=== PATIENT | male | born 1975 | race Caucasian/White ===

== ENCOUNTER → 2016-04-12 | Outpatient (CLI) | payer MEDICAID ==
[~2016-04-12] MED LIST: CEPHALEXIN500 MG PO; HYDROCODONE-APA1 TA1 PO; NOMEDS *; PREDNISONE 10MG10 MG PO; TRAMADOL 50MG T50 MG PO
--- NOTE | 2016-04-14 09:36 | RADIOLOGY REPORT PS360 ---
MRI-LOW EXT ANY JOINT W/O-LT HISTORY: Medial sided left knee pain and swelling with history of meniscal tear and ACL tear. OLD TEAR OF MEDIAL MENISCUS OF LEFT KNEE ORDERING PHYSICIAN: Silverio Kumar MD PATIENT AGE: 41 years COMPARISON: Radiograph of to 2217 TECHNIQUE: Standard multiplanar multiecho sequences are performed without contrast. FINDINGS: The fibers of the ACL are sparse. There are however a few intact fibers present. This could be related to old injury. The PCL and collateral ligaments are intact. Patellar tendon and quadriceps tendon appears intact. There is a longitudinal tear the posterior horn of the medial meniscus with some minimal irregularity of the juxtaposing services of the tear but no significant displacement. The lateral meniscus has an unremarkable appearance. There is a small knee joint effusion. Patellar cartilage is well-preserved. No acute fracture or dislocation apparent there is some increased T2 signal involving the medial aspect of the medial femoral condyle and the medial tibial plateau. Suprapatellar effusion is present. There is also small Romero's cyst measuring 5. 3.5 x 1 cm. There is some loculation of the cyst in the popliteal fossa IMPRESSION: 1. Longitudinal tear involves posterior horn of the medial meniscus with some minimal irregularity of the surface of the tear 2. Small knee joint effusion with Romero's cyst. 3. Slight increased T2 signal involves the medial femoral condyle medial tibial plateau and could be related to bone bruise or overlying bone marrow edema from inflammation. 4. Sparse fibers of the ACL which may be due to old/minor injury
== END ==
LOC: RAD 07:48
DX: M23.204 Derangement of unspecified medial meniscus due to old tear or injury, left knee (principal)

== ENCOUNTER → 2016-05-17 | Outpatient (CLI) | payer MEDICAID ==
--- NOTE | 2016-05-20 07:55 | RADIOLOGY REPORT PS360 ---
PROCEDURE: 2-D M-mode and color Doppler study INDICATIONS FOR THE TEST: Chest pain COPD Heart Murmur Tobacco Smoking PalpitationsX Fatigue Syncope Edema Hypertension Diabetes Mellitus Rheumatic Fever SOB FUENTES Obesity Hyperlipidemia Family History HD Additional History ASD,BUBBLE STUDY DONE PATIENT INFORMATION HEIGHT: 69 WEIGHT:131 GENDER: Male B/P:104/73 2-D/M-MODE INTERPRETATION: 2-D MEASUREMENTS OBSERVED VALUES IN CMS Right Ventricular Dimension (RVDd) .9 Interventricular Septum (Thickness)(IVsd) .9 Left Ventricular Internal Dimensions(LVIDd) 5.7 Left Ventricular Posterior Wall (Thickness)(LVPWd) .9 Aortic Root 2.9 Aortic Cusp Separation 1.6 Left Atrial Dimensions (LAD) 2.8 2D 1. Left atrium is normal size, left ventricle is normal size, there is no concentric left ventricular hypertrophy, visually estimated ejection fraction 55% with no obvious regional wall motion abnormality. 2. The right atrium is mildly enlarged, right ventricle is mildly enlarged with normal contractility. 3. The aortic valve is minimally thickened and calcified consistent with mild aortic sclerosis. 4. Mitral and tricuspid valve is structurally normal 5. Pulmonic valve is not well visualized. 6. No significant pericardial effusion noted. 7. The intra-atrial septum is not well visualized. DOPPLER INTERROGATION: 1. The Doppler interrogation of the aortic mitral and tricuspid valve reveals presence of mild mitral and tricuspid regurgitation, tricuspid regurgitation jet velocity is insufficient for calculation of the right ventricular systolic pressure. 2. Agitated saline contrast study identifies right to left shunt, transesophageal echocardiogram is recommended to assess the intra-atrial septum. CONCLUSION: 1. Normal left ventricular size, preserved left ventricular systolic function, visually estimated ejection fraction 55% with no obvious regional wall motion abnormality. 2. Mildly enlarged right atrium and right ventricle contractility of the right ventricle is normal. 3. Agitated saline contrast study identifies right to left shunt, a transesophageal echocardiogram is recommended to assess the intra-atrial septum. 4. No significant pericardial effusion noted.
== END ==
LOC: RT 12:09
DX: Q21.1 Atrial septal defect (principal); R94.31 Abnormal electrocardiogram [ECG] [EKG]; I49.1 Atrial premature depolarization; I49.3 Ventricular premature depolarization; Z01.818 Encounter for other preprocedural examination

== ENCOUNTER 2016-12-08 22:36 | Observation (INO) | payer MEDICAID ==
[~2016-12-08] VITALS: Ht 172.7 cm; Wt 59.5 kg
[2016-12-08 22:38] VITALS: BP 130/83
[2016-12-08] MEDS ORDERED: NOMEDS XX (22:47)
[2016-12-08 22:51] LABS: HEMOGLOBIN 14.6 g/dL (14.1-18.0); LYMPH # 3.1 K/mm3 (0.7-4.5); LYMPH % 42.6 % (10-50)
--- NOTE | 2016-12-08 23:03 | Emergency Room Report ---
History of Present Illness Time Seen by [id number] Presenting Problem in Triage Pt arrived:Walked Presenting Problem:CHEST PAIN INTERMITTANTLY FOR A WEEK, NAUSEA. SPOKE WITH DR. 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 N Clinical Suspician of Infection? N Mental Status: 1 - Regular (Normal Baseline) Sepsis Risk:Low Sepsis Risk Have you (or family members/close friends) recently traveled outside the [place]? N If Yes, where/when: Have you had exposure to infectious disease within the past month? N TB? Other? Specify: Source patient, RN notes reviewed, family, old records Exam Limitations no limitations Comment over the last week has had chest pain and elevated bp Cardiac Chest Pain Chest pain indicative of cardiac Yes Timing/Duration 24 hours, intermittent Severity/Quality moderate, pressure Location central Chest Pain Radiation no radiation Activities at Onset light activity Nitro Today/Relief no nitro taken today Aspirin Treatment Today 325 mg x 1, provided by ED Beta betsy treatment today no beta betsy taken Timing/Duration this evening Severity moderate ALLERGIES Coded Allergies: No Known Allergies (05/27/16) Home Medications Active Scripts CEPHALEXIN MONOHYDRATE (Cephalexin 500MG Capsule) 500 MG PO QID #20 CAPSULE Prov: 09/27/14 HYDROCODONE 5MG/APAP 325MG (Hydrocodon-Acetaminophen 5-325) 1 TAB PO Q6HP PRN finger injury #15 TAB Prov: 09/27/14 Prednisone (Prednisone 10MG) 10 MG PO BID 7 Days Prov: 07/17/11 Reported Medications No Home Medications (NO HOME MEDICATIONS) 1 X * ONCE No Home Medications (NO HOME MEDICATIONS) 1 EACH XX ONCE History Medical History General Angina: No [place]: No Hypertension? No Hyperlipidemia? No CHF? No COPD? No Asthma? No CVA? No Seizures? No Diabetes? No GB Disease: No MRSA? No TB? No Cancer? No Immunization Hx DT/Tetanus 09/27/14 Surgical Hx Previous Surgery?N Social History Smoking Hx Smoker: Current Every Day Smoker Tobacco: Yes Type Cigarettes Packs/day < 1 Pack Alcohol Alcohol: Yes Drugs none Review of Systems All Other Systems Reviewed and Negative Constitutional denies fever Eyes denies drainage ENT denies: ear discharge, epistaxis, throat pain. Respiratory denies cough, denies shortness of breath, denies wheezing Cardiovascular see HPI, chest pain, palpitations, denies syncope Gastrointestinal denies abdominal pain, denies diarrhea, denies vomiting Genitourinary denies: dysuria, frequency, hesitancy, hematuria. Musculoskeletal denies back pain, denies joint pain, denies joint swelling, denies neck pain Skin denies rash Psychiatric/Neurological denies headache, denies seizure Physical Exam Vital Signs Vital Signs Date Time Temp Pulse Resp B/P Pulse O2 O2 Flow FiO2 Ox Delivery Rate 12/08 2237 98.1 58 18 130/83 97 - WBC >12,000 or <4,000 or 10% bands? 2 or more SIRS Criteria Met? B/P:130/83 MAP:98 Creatinine >2.0? UA output<0.5ml/kg/hr for 2 hrs? Platelet count >100,000? Lactate >2.0mmol/1? INR >1.2 or PTT > than 60 sec? Evidence of Organ Dysfunction? Provider documented clinical suspician of infection? N Sepsis Criteria Count: 0 Sepsis Risk: Low Sepsis Risk General Appearance no apparent distress Eye Exam - bilateral eye PERRL, bilateral eye EOMI Ear, Nose, Throat normal ENT inspection Neck supple Respiratory Status No: respiratory distress. Lung Sounds bilateral: lungs clear. 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 No Results/Orders Laboratory Tests 12/08/162243: Triglycerides 171, Cholesterol 166, LDL Cholesterol 90.8, VLDL Cholesterol 34.2, HDL Cholesterol 41.0 12/08/162243: Sodium 140, Potassium 4.0, Chloride 105, Carbon Dioxide 31, BUN 14, Creatinine 0.9, Estimated Creat Clear 92, Estimated GFR (MDRD) 94, Glucose 102, Calcium 9.0 , Total Bilirubin 0.2, AST 14 L, ALT 21, Alkaline Phosphatase 93, Creatine Kinase 116, CK-MB (CK-2) Rel Index 0.9, CK and CKMB Interp 1.1, Troponin I < 0.02, Total Protein 7.6, Albumin 4.1, Globulin 3.5 H, Albumin/Globulin Ratio 1.2, WBC 7.2, RBC 4.93, Hgb 14.6, Hct 44.8, MCV 90.9, RDW 12.6, Plt Count 276, MPV 7.5, Gran % 45.5, Gran # 3.3, Lymphocytes % 42.6, Monocytes % 3.5, Eosinophils % 7.5, Basophils % 0.9, Lymphocytes # 3.1, Monocytes # 0.3, Eosinophils # 0.5 H, Basophils # 0.1, PUBS MCHC 32.5, MCH 29.6 Current Medication Orders Sig/Lizzette Start time Last Medication Dose Route Stop Time Status Admin Sodium Chloride 10 ML PRN PRN 12/08 2299 AC IV 12/09 2248 Orders Procedure Date/time Status Decision to admit 12/08 2328 Active LIPID PROFILE 12/08 2301 Complete ELECTROCARDIOGRAM REQUEST 12/08 2248 Active CHEST(2 VIEWS-NOT PORTABLE) 12/08 2248 Active IV SALINE LOCK 12/08 2248 Active CBC WITH AUTO DIFF 12/08 2248 Complete CARDIAC ENZYMES 12/08 2248 Complete CHEM 12 PROFILE 12/08 2248 Complete 12 LEAD EKG-YAMILKA (INITIAL) 12/08 UNK Active 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 ST/Twave chgs XRAY/CT/US XRAY/CT/US XRAY chest XR interpretation by reviewed by me Xray Results normal/NAD HERLINDA Score for N-Stemi/Angina HERLINDA N-STEMI SCORE HERLINDA N-STEMI SCORE Response Value Age of patient Less than 65 yrs 0 Number of risk factors for CAD Presence of 3 or more 1 Prior coronary artery stenosis (seen in angiography) Less than 50% 0 ST-Segment deviation on ECG (>1 min) Absent 0 Prior aspirin intake No ASA in the last 7 days 0 Severe anginal chest pain 2 or more episodes/24hr 1 Elevated cardiac markers(CK-MB or troponin) Absent 0 Total 2 Risk Stratification 0-2= Low Risk Patients Departure Departure Time of Disposition 2306 Disposition Still a Patient Clinical Impression Primary Impression: Chest pain Qualifiers: Chest pain type: precordial pain Qualified Code: R07.2 - Precordial pain Condition STABLE Referrals Ken Hodge MD (Family) discussed with dr tilley and dr narvaez ED Critical Care Critical Care No at [id number]
[2016-12-08 23:16] LABS: BUN 14 mg/dL (7-18)
[2016-12-08 23:19] LABS: GFR (ESTIMATED) 94 ML/MIN (>60)
[2016-12-09] VITALS (11 sets, daily range): BP systolic 103–146; BP diastolic 56–72
[2016-12-09 08:08] LABS: BUN 11 mg/dL (7-18)
[2016-12-09 08:13] LABS: GFR (ESTIMATED) 108 ML/MIN (>60)
--- NOTE | 2016-12-09 08:26 | RADIOLOGY REPORT PS360 ---
CHEST(2 VIEWS-NOT PORTABLE) HISTORY: Chest pain, smoker CHEST PAIN ORDERING PHYSICIAN: Olivier Flores MD PATIENT AGE: 41 years COMPARISON: 05/08/2016 FINDINGS: The cardiomediastinal silhouette and pulmonary vascularity are within normal limits. The lungs are clear without infiltrates, suspicious nodules, or pleural effusions. No acute bony abnormalities. IMPRESSION: Negative chest, no acute finding
--- NOTE | 2016-12-09 08:35 | PHARMACY CLINIC NOTE ---
Patient Demographics Patient Demographics Admission date: 12/09/16 Date: 12/09/16 Time: 0834 Allergies Coded Allergies: No Known Allergies (05/27/16) HEIGHT- FT: 5 IN: 8.00 K.506 VTE General Information Labs: Laboratory Tests 12/08 2244 Hematology Hgb (14.1 - 18.0 g/dL) 14.6 Hct (42.0 - 52.0 %) 44.8 Plt Count (142 - 424 K/mm3) 276 Disclaimer The following section includes nursing documentation that has been pulled in for pharmacy review. Patient's VTE score: 1 Patient's VTE Risk: VERY LOW RISK Clinical trial participant? No VTE prophylaxis NQF [id number] VTE prophylaxis ordered? Yes Type of prophylaxis/treatment: DARIEL at 0834
--- NOTE | 2016-12-09 08:58 | HISTORY AND PHYSICAL REPORT ---
See Addendum History and Physical (FCA) Date of admission: 12/09/16 Chief complaint: slow heart rate History: History of Present Illness: Mr Figueroa is a 41 year old male with a history of arrhythmias requiring ablations x4 and atrial septal defect who presented to [facility] ER for evaluation with a low HR in the 50's. He states he has not felt well for the previous 3-4 days with nausea and some CP. He describes the CP as LACP and like a cramp which is better when leaning over. He denies SOB, vomiting, fever, and diarrhea. He does smoke about [address] Sherwood who directed him to the ER. In the ER EKG showed a Sinus Bradycardia with non-spec. ST/Twave chgs. He was admitted for further evaluation and treatment. Past Medical History: Medical History: CAD? No Angina: No CT: No Hypertension? No Hyperlipidemia? No CHF? No DVT? No PE? No COPD? No Asthma? No Anemia? No GERD? No GI Bleed? No Thyroid Problems? No Hypothyroidism? No CVA? No Seizures? No Diabetes? No Renal Insuffiency? No BPH? No GB Disease: No Migraines? No MRSA? No TB? No Anxiety? No Depression? No Cancer? No More? No Additional hx: Cardiac arrhythmias requiring ablation x4 Atrial septal defect Tobacco abuse Surgical history: Previous Surgery?Y 4 CARDIAC ABLATIONS Medications: Reported Medications No Known Home Medications Allergies: Coded Allergies: No Known Allergies (05/27/16) Family History: Family history: Postive for: CAD, CAD under 40 yrs of age. Negative for: DM, stroke. Social History: Smoking Hx Tobacco: Yes Smoker: Current Every Day Smoker Type: Cigarettes Packs/day: < 1 Pack Are you exposed to second hand Yes Alcohol: Alcohol: No Hx of Drug Use: Drug Use? No Patien't marital status is: Review of Systems: Constitutional Positive for: weak. ENT No: ear ache, nasal congestion, sore throat. Cardiovascular Positive for: chest pain, palpitations. No: edema. Respiratory No: shortness of air, non-productive, pneumonia, productive cough (sputum), wheezing. GI No: GERD, abdominal pain, constipation, diarrhea, hematemeis, hematochezia, melena, nausea, vomitting. (male) No: hematuria. Neurological Positive for: dizziness, light headed. No: confusion, headache, seizure, syncope. Musculoskeletal No: extremity pain, extremity swelling, joint pain, joint swelling. Psychiatric No: confused, depression. Physical Exam: Vital signs: 1ST Vital Signs Result Date Time Pulse Ox 97 12/08 2237 B/P 130/83 12/08 2237 Temp 98.1 12/08 2237 Pulse 58 12/08 2237 Resp 18 12/08 2237 O2 Delivery ROOM AIR 12/09 001 Exam: General appearance: alert, active, awake, no acute distress Eyes: anicteric, pupils reactive to light ENT: mucous membranes moist Neck: no carotid bruit, full range of motion, lymphadenopathy (absent), thyroid (normal) Cardiovascular: regular rate & rhythm (bradycardia), no ectopy heard with this exam Respiratory: clear to auscultation (bilat anterior and posterior) ABD: soft, no tenderness, no guarding, bowel sounds present Extremities: moves all, no peripheral edema, no calf tenderness Neuro: alert, oriented, speech clear Lab data: Labs: Laboratory Tests 12/09/16 0735: Sodium 140, Potassium 4.2, Chloride 108 H, Carbon Dioxide 28, BUN 11, Creatinine 0.8, Estimated Creat Clear 104, Estimated GFR (MDRD) 108, Glucose 92, Calcium 8.6, Creatine Kinase 251, CK-MB (CK-2) Rel Index 0.8, CK and CKMB Interp 2.1, Troponin I < 0.02 12/09/16 0310: Creatine Kinase 88, CK-MB (CK-2) Rel Index 0.8, CK and CKMB Interp 0.7, Troponin I < 0.02 12/08/16 2244: Triglycerides 171, Cholesterol 166, LDL Cholesterol 90.8, VLDL Cholesterol 34.2, HDL Cholesterol 41.0 12/08/16 2244: Sodium 140, Potassium 4.0, Chloride 105, Carbon Dioxide 31, BUN 14, Creatinine 0.9, Estimated Creat Clear 92, Estimated GFR (MDRD) 94, Glucose 102, Calcium 9.0 , Total Bilirubin 0.2, AST 14 L, ALT 21, Alkaline Phosphatase 93, Creatine Kinase 116, CK-MB (CK-2) Rel Index 0.9, CK and CKMB Interp 1.1, Troponin I < 0.02, Total Protein 7.6, Albumin 4.1, Globulin 3.5 H, Albumin/Globulin Ratio 1.2, WBC 7.2, RBC 4.93, Hgb 14.6, Hct 44.8, MCV 90.9, RDW 12.6, Plt Count 276, MPV 7.5, Gran % 45.5, Gran # 3.3, Lymphocytes % 42.6, Monocytes % 3.5, Eosinophils % 7.5, Basophils % 0.9, Lymphocytes # 3.1, Monocytes # 0.3, Eosinophils # 0.5 H, Basophils # 0.1, PUBS MCHC 32.5, MCH 29.6 Radiology results: Results: 12/08/16 IMPRESSION: Negative chest, no acute finding Diagnosis(es): 1. Chest pain 2. Cardiac dysrhythmia, unspecified Plan: Dr. Sherwood was consulted in the ER and he will have a cardiac cath at 0858 at 1240
--- NOTE | 2016-12-09 10:07 | RADIOLOGY REPORT PS360 ---
CARDIAC CATHETERIZATION DATE OF CATHETERIZATION:12/09/2016 9:08 AM PROCEDURES: 1. Right heart catheterization 2. Left heart catheterization 3. Left ventriculogram 4. Selective coronary angiogram INDICATION FOR TEST: 1. Unstable angina 2. Left to right inter atrial shunt 3. Symptomatically bradycardia Informed consent was obtained prior to the procedure. COMPLICATIONS: None ESTIMATED BLOOD LOSS: Less than 10 ml. TECHNIQUE: One percent lidocaine was used to anesthetize the right anterior aspect of the right neck. The right internal jugular vein was accessed via the Seldinger technique and a 7 Occitan sheath was placed in the internal jugular vein. Following this one percent lidocaine was used to anesthetize the right anterior aspect of the right wrist and the right radial artery was accessed via the Seldinger technique. A 6 Occitan hydrophilic sheath was placed in the right radial artery and an arterial cocktail using verapamil nitroglycerin and heparin was administered intra-arterially. A trap catheter was used to perform left heart catheterization left ventriculogram and selective coronary angiography. At the end of the diagnostic angiogram a Warren-Johnny catheter was floated into the right atrium and right ventricle pulmonary artery and wedged position under both hemodynamic and fluoroscopic guidance. The catheter was then pulled into the superior vena cava were saturation was obtained and then placed down into the inferior vena cava with repeat saturation. At the end of the procedure the radial artery sheath was removed good hemostasis was achieved using TR banding in patient transferred the postop holding area in stable condition ANGIOGRAPHIC RESULTS: 1. The left main artery normal 2. The left anterior descending artery has normal 3. The circumflex artery is non dominant and has normal 4. The right coronary artery normal 5. The SINGH ventriculogram reveals normal 65% The left ventricular end-diastolic pressure 10 mmHg HEMODYNAMICS: Right atrial pressure is 5 mm Hg. Pulmonary arterial pressure is 15/8 mm Hg. Pulmonary artery occlusion pressure is 5 mm Hg. SATURATIONS: RA is 90 %. PA is 90 %. Superior vena cava 89% Inferior vena cava 92% IMPRESSION: 1. Normal coronary arteries 2. Normal ejection fraction 3. Normal left ventricular end-diastolic pressure 4. No evidence of left to right shunting 5. Normal right heart cath numbers with the exception of a high saturation in the venous return at both the superior vena cava and inferior vena cava level PLAN: 1. Patient will be evaluated for symptomatic bradycardia by placement of an implantable loop recorder
[2016-12-09 10:19] LABS: ARTERIAL O2 SAT CATH LAB 90 % (90-100); VENOUS O2 SAT CATH LAB 90 % (75-80)
[2016-12-09 10:37] LABS: HEMOGLOBIN 13.5 g/dL (14.1-18.0); LYMPH # 2.3 K/mm3 (0.7-4.5)
--- NOTE | 2016-12-09 16:13 | DISCHARGE SUMMARY STANDARD ---
Discharge Summary (FCA2) Date of admission: 12/09/16 Date of discharge: 12/09/16 Problem List: 1. Chest pain 2. Cardiac dysrhythmia, unspecified History of present illness: History of Present Illness: Mr Figueroa is a 41 year old male with a history of arrhythmias requiring ablations x4 and atrial septal defect who presented to [facility] ER for evaluation with a low HR in the 50's. He stated he had not felt well for the previous 3-4 days with nausea and some CP. He described the CP as LACP which felt like a cramp which was better when leaning over. He denied SOB, vomiting, fever, and diarrhea. He has continued to smoke about [address] Sherwood who directed him to the ER. In the ER EKG showed a Sinus Bradycardia with non-spec. ST/Twave chgs. He was admitted for further evaluation and treatment. Exam on admission: 1ST Vital Signs Result Date Time Pulse Ox 97 12/08 2237 B/P 130/83 12/08 2237 Temp 98.1 12/08 2237 Pulse 58 12/08 2237 Resp 18 12/08 2237 O2 Delivery ROOM AIR 12/09 001 Exam: General appearance: alert, active, awake, no acute distress Eyes: anicteric, pupils reactive to light ENT: mucous membranes moist Neck: no carotid bruit, full range of motion, lymphadenopathy (absent), thyroid (normal) Cardiovascular: regular rate & rhythm (bradycardia), no ectopy heard with this exam Respiratory: clear to auscultation (bilat anterior and posterior) ABD: soft, no tenderness, no guarding, bowel sounds present Extremities: moves all, no peripheral edema, no calf tenderness Neuro: alert, oriented, speech clear 12/09/16 0735: Sodium 140, Potassium 4.2, Chloride 108 H, Carbon Dioxide 28, BUN 11, Creatinine 0.8, Estimated Creat Clear 104, Estimated GFR (MDRD) 108, Glucose 92, Calcium 8.6, Creatine Kinase 251, CK-MB (CK-2) Rel Index 0.8, CK and CKMB Interp 2.1, Troponin I < 0.02 12/09/16 0310: Creatine Kinase 88, CK-MB (CK-2) Rel Index 0.8, CK and CKMB Interp 0.7, Troponin I < 0.02 12/08/16 2244: Triglycerides 171, Cholesterol 166, LDL Cholesterol 90.8, VLDL Cholesterol 34.2, HDL Cholesterol 41.0 12/08/16 2244: Sodium 140, Potassium 4.0, Chloride 105, Carbon Dioxide 31, BUN 14, Creatinine 0.9, Estimated Creat Clear 92, Estimated GFR (MDRD) 94, Glucose 102, Calcium 9.0 , Total Bilirubin 0.2, AST 14 L, ALT 21, Alkaline Phosphatase 93, Creatine Kinase 116, CK-MB (CK-2) Rel Index 0.9, CK and CKMB Interp 1.1, Troponin I < 0.02, Total Protein 7.6, Albumin 4.1, Globulin 3.5 H, Albumin/Globulin Ratio 1.2, WBC 7.2, RBC 4.93, Hgb 14.6, Hct 44.8, MCV 90.9, RDW 12.6, Plt Count 276, MPV 7.5, Gran % 45.5, Gran # 3.3, Lymphocytes % 42.6, Monocytes % 3.5, Eosinophils % 7.5, Basophils % 0.9, Lymphocytes # 3.1, Monocytes # 0.3, Eosinophils # 0.5 H, Basophils # 0.1, PUBS MCHC 32.5, MCH 29.6 Hospital Course: Am of 12/09/16 patient reported no CP or SOB. He had a cardiac cath with the following impression: 1. Normal coronary arteries 2. Normal ejection fraction 3. Normal left ventricular end-diastolic pressure 4. No evidence of left to right shunting 5. Normal right heart cath numbers with the exception of a high saturation in the venous return at both the superior vena cava and inferior vena cava level with plan for evaluation for symptomatic bradycardia by placement of an implantable loop recorder. Patient continued to be pain free in the PM of same day and was discharged to home. Laboratory data this visit: 12/09/16 0735: Sodium 140, Potassium 4.2, Chloride 108 H, Carbon Dioxide 28, BUN 11, Creatinine 0.8, Estimated Creat Clear 104, Estimated GFR (MDRD) 108, Glucose 92, Calcium 8.6, Creatine Kinase 251, CK-MB (CK-2) Rel Index 0.8, CK and CKMB Interp 2.1, Troponin I < 0.02 12/09/16 0310: Creatine Kinase 88, CK-MB (CK-2) Rel Index 0.8, CK and CKMB Interp 0.7, Troponin I < 0.02 12/08/16 2244: Triglycerides 171, Cholesterol 166, LDL Cholesterol 90.8, VLDL Cholesterol 34.2, HDL Cholesterol 41.0 12/08/16 2244: Sodium 140, Potassium 4.0, Chloride 105, Carbon Dioxide 31, BUN 14, Creatinine 0.9, Estimated Creat Clear 92, Estimated GFR (MDRD) 94, Glucose 102, Calcium 9.0 , Total Bilirubin 0.2, AST 14 L, ALT 21, Alkaline Phosphatase 93, Creatine Kinase 116, CK-MB (CK-2) Rel Index 0.9, CK and CKMB Interp 1.1, Troponin I < 0.02, Total Protein 7.6, Albumin 4.1, Globulin 3.5 H, Albumin/Globulin Ratio 1.2, WBC 7.2, RBC 4.93, Hgb 14.6, Hct 44.8, MCV 90.9, RDW 12.6, Plt Count 276, MPV 7.5, Gran % 45.5, Gran # 3.3, Lymphocytes % 42.6, Monocytes % 3.5, Eosinophils % 7.5, Basophils % 0.9, Lymphocytes # 3.1, Monocytes # 0.3, Eosinophils # 0.5 H, Basophils # 0.1, PUBS MCHC 32.5, MCH 29.6 Imagin12/08/16 IMPRESSION: Negative chest, no acute finding Disposition: Patient was discharged to home in stable and satisfactory condition. He was on no medications. Diet was to be as tolerated and activity limited. To follow-up with Dr. Hodge in [address] Sherwood as directed. Pt was counselled about smoking cessation and he will consider. at 1613
--- NOTE | 2016-12-13 09:42 | Operative Note ---
Procedure: Date of procedure: 12/12/16 Time of procedure: 929 Indication: AF ABLATION Technique: Technique: 1 percent lidocaine with epinephrine used to anesthetize the size. The LEFT anterior aspect of the chest along the LEFT sternal border. Using the preformed scalpel, an incision was made in the loop recorder was placed subcutaneously without difficulty. Following the deployment of the loop recorder interrogation of the device was performed to ensure appropriate voltage was being detected. Once this was verified. Steri-Strips were placed over the incision and the patient was prepped to discharge home. Patient tolerated procedure well with minimal discomfort. Impression: Successful deployment of loop recorder Serial number: REVEAL LINQ [id number]
--- OUTSIDE RECORDS SUMMARY | 2016-12-13 23:41 | External Medical Summary Rpt | CCD ---
Author Author , YOSHI Organization YOSHI Address Unknown Phone [email or web address] Care Team Providers Care Supervisor Coin Machine Name Role Phone ATKINS TRA, ATKINS Unavailable Unavailable TRA ATKINS TRA, ATKINS Unavailable Unavailable TRA BESSON, BESSON Unavailable Unavailable BESSON ROMINA, BESSON Unavailable Unavailable ROMINA ZHANG, ZHANG Unavailable Unavailable BELLE, BELLE Unavailable Unavailable BELLE, BELLE Unavailable Unavailable BURGER, BURGER Unavailable Unavailable FROY, FROY Unavailable Unavailable [facility], Unavailable Unavailable [facility] Unavailable Unavailable [facility] Unavailable Unavailable PHYSICIANS, [facility] ILIANA RENEE, ILIANA Unavailable Unavailable VÍCTOR FAY LALI, Unavailable Unavailable FAY LALI PEREYRA LLUVIA, PEREYRA LLUVIA Unavailable Unavailable CELI ANURADHA, CELI ANURADHA Unavailable [facility] GRAVES LES, GRAVES Unavailable Unavailable LES GRA[facility]ES LES, GRAVES Unavailable Unavailable LES [facility] Unavailable Unavailable INC, [facility] Unavailable [facility]available [facility]PITAL P, [facility] HERFEL DONOVAN, HERFEL Unavailable Unavailable DONOVAN [facility], Unavailable Unavailable [facility] HURST LLUVIA, HURST LLUVIA Unavailable Unavailable HARPER MAR, HARPER Unavailable Unavailable MAR [facility]available [facility], [facility] RONNELL ANAI, RONNELL Unavailable Unavailable [facility] Un[facility] SMITH ROMINA, SMITH ROMINA Unavailable Unavailable VIRGEN JR, VIRGEN JR Unavailable Unavailable MAGO MAR, MAGO MAR Unavailable Unavailable PARRISH, PARRISH Unavailable Unavailable ROBERT R H, Unavailable Unavailable ROBERT R H PETTEY, PETTEY Unavailable Unavailable RACHOVITSKY NATALIA, Unavailable Unavailable RACHOVITSKY NATALIA ISAURA CARLOS EDUARDO, Unavailable Unavailable ISAURA CARLOS EDUARDO SCALF, SCALF Unavailable Unavailable SCALF, SCALF Unavailable Unavailable SCALF LEI, SCALF LEI Unavailable Unavailable SCALF LEI, SCALF LEI Unavailable Unavailable [facility], Unavailable Unavailable [facility] Unavailable Unavailable CATERING AND EVENTS MANAGER ST, [facility] EVENTS MANA[facility] NO Unavailable Unavailable PHYSICIANS, [facility], Unavailable Unavailable RED MORENO Unavailable Unavailable [facility], Unavailable Unavailable [facility] Unavailable Unavailable [facility], [facility] Unavailable Unavailable [facility], [facility] AARON BAR, AARON BAR Unavailable Unavailable Purpose Continuity of Care Document - 05-09-2012 through 2016 Problems Code Diagnosis DOS Provider Status Q211 ATRIAL 09-19-2016 [place] [facility]AL OF [facility] PHY [id number] BASAL CELL 05-28-2016 SCALF CARCINOMA SKIN OF OTHER PART OF TRUNK M2242 CHONDROMALA 05-27-2016 [facility] CONRADO PHYSICIANS PATELLAE GROUP LEFT KNEE [id number] DERANG POST 05-27-2016 [facility] HORN MED PHYSICIANS MENISC OLD GROUP TEAR/INJ LT KNEE [id number] UNS TEAR 05-27-2016 [facility] UNS ANESTH OF MENISCUS [facility] BLUE CURR INJ LT KNEE INIT ENC [id number] SPRAIN ANT 05-27-2016 [facility] CRUCIATE PHYSICIANS LIGAMENT LT GROUP KNEE INITIAL ENC I491 ATRIAL 05-17-2016 [facility] DEPOLARIZAT INC ION I493 VENTRICULAR 05-17-2016 [facility] DEPOLARIZAT INC ION R9431 ABNORMAL 05-17-2016 [facility] IOGRAM INC [id number] ENCOUNTER 05-17-2016 [facility] OTHER [facility] PREPROCEDUR INC AL EXAMINATION B09083 ENCOUNTER 05-08-2016 [facility] AL CARIOVASCUL AR EXAM Y79114 ENCOUNTER 05-08-2016 [facility] P AL RESPIRATORY EXAM M95204 ENCOUNTER 05-08-2016 [facility] P AL LABORATORY EXAM Z720 TOBACCO USE 05-08-2016 [facility] [id number] COMPLEX 04-30-2016 [facility] TEAR MED PHYSICIANS MENISCUS GROUP CURR UNS KNEE SUBSQT D225 MELANOCYTIC 04-18-2016 [facility] NEVI OF TRUNK D2261 MELANOCYTIC 04-18-2016 [facility] NEVI RIGHT UPPER LIMB INCL SHOULDER D2262 MELANOCYTIC 04-18-2016 [facility] NEVI LEFT UPPER LIMB INCL SHOULDER D2271 MELANOCYTIC 04-18-2016 [facility] NEVI RIGHT LOWER LIMB INCLUDING HIP D2272 MELANOCYTIC 04-18-2016 [facility] NEVI LEFT LOWER LIMB INCLUDING HIP L578 OTH SKN 04-18-2016 [facility] CHANGES D/T CHRN EXPS TO NONIONIZING RAD Z08 ENCOUNTER 04-18-2016 [facility] F/U EXAM AFTER CMPL TX MALIG NEOPLASM D56117 PERSONAL 04-18-2016 [facility] HISTORY OTHER MALIGNANT NEOPLASM SKIN I14697 DERANGEMNT 04-12-2016 [facility] MED [facility]OS[facility] MENISCUS INC OLD TEAR/INJ LT KNEE G59212 EFFUSION 04-12-2016 [facility] M7122 SYNOVIAL 04-12-2016 [facility] POPLITEAL IMAGING ASS SPACE VAUGHN LEFT KNEE [id number] OTH TEAR 04-12-2016 [facility] MEDICAL MENISCUS IMAGING ASS CURR INJ LT KNEE INIT ENC M77327 PAIN IN 04-04-2016 [facility] M7989 OTHER 04-04-2016 [facility] SPECIFIED MEDICAL SOFT TISSUE IMAGING ASS DISORDERS I49.1 Atrial 10-12-2015 premature depolarizat ion R002 PALPITATION 09-29-2015 [facility] S ASSOCIATES I471 SUPRAVENTRI 08-16-2015 ST CULAR NO TACHYCARDIA PHYSICIANS C4491 BASAL CELL 07-19-2015 SC[facility] LEI CARCINOMA OF SKIN, UNSPECIFIED D0439 CARCINOMA 07-19-2015 SC[facility] LEI IN SITU OF SKIN OF OTHER PARTS OF FACE A83909 SQUAMOUS 05-18-2015 SC[facility] LEI CELL CARCINOMA SKIN OTHER PARTS OF FACE C4441 BASAL CELL 05-18-2015 SCALF LEI CARCINOMA OF SKIN OF SCALP AND NECK D2239 MELANOCYTIC 05-18-2015 GRA[facility] LES NEVI OF OTHER PARTS OF FACE D485 NEOPLASM OF 05-18-2015 [facility] LES UNCERTAIN BEHAVIOR OF SKIN L570 ACTINIC 05-18-2015 [facility] LES KERATOSIS L720 EPIDERMAL 05-18-2015 [facility] LES CYST I4892 UNSPECIFIED 04-25-2015 ST ATRIAL NO FLUTTER PHYSICIANS R0602 SHORTNESS 03-22-2015 ST OF BREATH NO PHYSICIANS R079 CHEST PAIN 03-22-2015 ST UNSPECIFIED NO PHYSICIANS L814 OTHER 02-16-2015 GRAVES LES MELANIN HYPERPIGMEN TATION 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 MED CTR UNSPECIFIED Z7982 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 01-21-2015 ST CURRENT USE NO OF [facility] Z8249 FAMILY HX 01-21-2015 ST ISCHEMIC NO HRT DZ OTH MED CTR DZ CIRC SYSTEM J189 PNEUMONIA 01-03-2015 [facility] UNSPECIFIED EMERGENCY ORGANISM PHYSICIANS 69161 SUPRAVENTRI 11-25-2014 ST CULAR NO PREMATURE PHYSICIANS BEATS 92730 OTHER 11-25-2014 ST PREMATURE NO BEATS PHYSICIANS 20796 OTHER 11-25-2014 ST SPECIFIED NO CARDIAC PHYSICIANS DYSRHYTHMIA S I47.1 Supraventri 11-18-2014 cular tachycardia 2166 KARLO 10-27-2014 G[facility]ES LES NEOPLASM SKIN UPPER LIMB INCLUDING SHOULDER 30405 OTHER 10-27-2014 G[facility] LES CHRONIC DERMATITIS DUE TO SOLAR RADIATION 7020 ACTINIC 10-27-2014 [facility] LES KERATOSIS V1083 PERSONAL 10-27-2014 G[facility] LES HISTORY OTHER MALIGNANT NEOPLASM SKIN V6549 OTHER 10-27-2014 G[facility]ES LES SPECIFIED COUNSELING V7260 LABORATORY 09-05-2014 ST EXAMINATION NO MED CTR CATERING AND EVENTS MANAGER UNSPECIFIED ST 69564 BASAL CELL 07-27-2014 ATKINS TRA CARCINOMA SKIN TRUNK EXCEPT SCROTUM 69708 BASAL CELL 07-27-2014 ATKINS TRA CARCINOMA SKIN UPPER LIMB INCL SHOULD 4293 CARDIOMEGAL 07-18-2014 [facility] 7455 OSTIUM 07-18-2014 [facility] SERV TYPE ATRIAL FOUNDATION SEPTAL DEFECT 7851 PALPITATION 07-11-2014 [facility] 2165 BENIGN 06-23-2014 G[facility]ES LES NEOPLASM OF SKIN OF TRUNK EXCEPT SCROTUM 2167 BENIGN 06-23-2014 GRA[facility]ES LES NEOPLASM SKIN LOWER LIMB INCLUDING HIP 2168 BENIGN 06-23-2014 SCALF LEI NEOPLASM OF OTHER SPECIFIED SITES OF SKIN 2382 NEOPLASM OF 06-23-2014 SCALF LEI UNCERTAIN BEHAVIOR OF SKIN 6869 UNSPEC 06-23-2014 SCALF LEI LOCAL INFECTION SKIN&SUBCUT ANEOUS TISSUE 16751 CHEST PAIN 06-09-2014 [facility] P Medications Na ND Rx Da Fi Fi Am Da Di Ph RX Ph St me C No te ll ll ou ys ag ar # ys at rm s nt no ma ic us Or Da si cy ia de te s n re d HY 00 03 04 [address] 40 -2 -2 .0 00 L- ti OC 60 7- 8- 00 02 MA ve OD 12 20 20 23 RT ON 30 17 17 96 -A 1 84 PH CE AR TA MA CA CY NO PH #5 EN 91 5- 32 5 Results Labs Lab Lab Date Result Refere Interp Status Commen Order Detail nces retati t Range on CBC w auto diff (12-08-2016 22:44) Automat = 0.1 0-0.2 complet ed 017 K/MM3 ed blood 22:44 basophi l count (count/ vo Baso % = 0.9 % 0.1-2.0 complet 017 ed 22:44 Automat = 0.5 0.0-0.4 complet ed 017 K/mm3 ed blood 22:44 eosinop hil count Automat = 7.5 % 0.1-12. complet ed 017 0 ed blood 22:44 eosinop hils/10 0 leukocy t Blood = 3.3 1.3-8.0 complet granulo 017 K/mm3 ed cytes 22:44 automat ed count (numb Granulo = 45.5 37.0-80 complet cyte 017 % .0 ed percent 22:44 age Blood = 44.8 42.0-52 complet hematoc 017 % .0 ed rit 22:44 (volume fractio n) Blood = 14.6 14.1-18 complet hemoglo 017 g/dL .0 ed bin 22:44 measure ment (mass/v olum Absolut = 3.1 0.7-4.5 complet e 017 K/mm3 ed lymphoc 22:44 yte count Lymphoc = 42.6 10-50 complet yte 017 % ed count, 22:44 blood, automat ed Mean = 29.6 27-31.2 complet corpusc 017 pg ed ular 22:44 hemoglo bin (MCH) determ Automat = 32.5 31.8-35 complet ed 017 g/dl .4 ed erythro 22:44 cyte mean corpusc ular h Automat = 90.9 82.2-97 complet ed 017 fl .8 ed erythro 22:44 cyte mean corpusc ular v Absolut 10-08-2 = 0.3 0.1-1.0 complet e 017 K/mm3 ed monocyt 22:44 e count Hyde % 2 = 3.5 % 1.7-9.3 complet 017 ed 22:44 Automat 2 = 7.5 7.4-10. complet ed 017 fl 4 ed blood 22:44 platele t mean volume kali Blood = 276 142-424 complet platele 017 K/mm3 ed t count 22:44 Red 2 = 4.93 4.6-6.2 complet blood 017 M/mm3 ed cell 22:44 count Automat 2 = 12.6 11.5-17 complet ed 017 % .5 ed erythro 22:44 cyte distrib ution width Blood 2 = 7.2 4.8-10. complet leukocy 017 K/MM3 8 ed andrew 22:44 count (number /volume ) Procedures Procedure DOS Code Location Performer Comment DOPPLER 07777 [facility] ECHOCARD 7 Y OF PULSE [place] WAVE I PHY W/SPECTRA L DISPLAY INJECTION J3010 [facility] FENTANYL 7 Y OF Y OF CITRATE [place] 0.1 MG I MED I MED DOP 72567 [facility] ECHOCARD 7 Y OF COLOR [place] FLOW I PHY VELOCITY MAPPING ECHO 37832 [facility] TRANSESOP 7 Y OF HAG R-T [place] 2D W/PRB I PHY IMG ACQUISJ I&R JOSÉ ANTONIO W OR C8925 [facility] W/O FLW 7 Y OF Y OF W/CNTRST [place] REAL TIME I MED I MED 2D; ACQ I&R INJECTION J2250 [facility] 7 Y OF Y OF MIDAZOLAM [place] HCL PER I MED I MED 1 MG IMHISTOCH 51373 SCALF SCALF EM/CYTCHM 7 1ST [place] [address] SCALF SCALF SURG 7 PATHOLOGY GROSS&GUSTAVO ROSCOPIC EXAM EXCISION 69133 BELLE BELLE MAL 7 LESION TRUNK/ARM /LEG 2.1-3.0 CM REPAIR 32717 BELLE BELLE INTERMEDI 7 ATE S/A/T/E 2.6-7.5 CM ANES 92647 [facility] OPEN/SURG 7 ANESTH OF THE ARTHROSCO BLUE PIC PROC KNEE JOINT NOS URNLS DIP 08225 [facility] STICK/TAB INC INC LET REAGENT AUTO MICROSCOP Y ARTHROSCO 97520 [facility] PY KNEE 7 [facility] W/MENISCU INC INC S RPR MEDIAL/LA TERAL ARTHRS 65628 [facility] KNEE 7 [facility] ABRASION INC INC ARTHRP/ML T DRLG/MICR OFX ECHO 52059 [facility] TTHRC R-T 7 [facility] 2D INC INC W/WOM-MOD E COMPL SPEC&COLR D ECG 33648 [facility] ROUTINE 7 [facility] ECG INC INC W/LEAST 12 LDS TRCG ONLY W/O I&R ECG 58340 [facility] ROUTINE 7 [facility] ECG INC INC W/LEAST 12 LDS TRCG ONLY W/O I&R BLOOD 02990 [facility] COUNT 7 [facility] COMPLETE INC INC AUTO&AUTO DIFRNTL WBC RADIOLOGI 90252 [facility] EXAM 7 MEDICAL CHEST 2 IMAGING VIEWS ASS FRONTAL&L ATERAL ECG 93763 [facility] ROUTINE [address] [facility] W/LEAST P 12 LDS I&R ONLY BASIC 82878 [facility] METABOLIC 7 [facility] PANEL INC INC CALCIUM TOTAL COLLECTIO 09475 [facility] N VENOUS 7 [facility] BLOOD INC INC VENIPUNCT URE DESTRUCTI 28629 BELLE BELLE ON 7 PREMALIGN ANT LESION 2-14 EA BX SKIN 15375 BELLE BELLE SUBCUTANE 7 OUS&/MUCO US MEMBRANE 1 LESION IMHISTOCH 76562 SCALF SCALF EM/CYTCHM 7 1ST [place] [address] SCALF SCALF SURG 7 PATHOLOGY GROSS&GUSTAVO ROSCOPIC EXAM DESTRUCTI 63896 [facility] BELLE ON 7 PREMALIGN ANT LESION 1ST MRI ANY 92251 [facility] JT LOWER 7 [facility] H[facility] EXTREM INC INC W/O CONTRAST MATRL RADIOLOGI 91097 [facility] C EXAM 7 [facility] KNEE INC INC COMPLETE 4/MORE VIEWS EPHYS 34068 ST FROY EVAL 6 NO THO W/ABLATIO N PHYSICIAN SUPRAVENT S ARRHYTHMI A ANES 55694 ANESTHESI RONNELL CARDIAC 6 A GROUP ANAI ELECTROPH PRACTICE YSIOL STDY W/RF ABLATION COMPRE 64422 ST FRYO ELECTROPH 6 NO THO YSIOL XM W/LEFT PHYSICIAN ATRIAL S PACNG/REC INTRACARD 35271 ST FROY IAC 6 NO THO ELECTROPH YSIOLOGIC PHYSICIAN 3D S MAPPING DESTRUCTI 36451 SCALF LEI SCALF LEI ON MAL 6 LESION F/E/E/N/L /M 0.6-1.0CM IMHISTOCH 70658 SCALF LEI SCALF LEI EM/CYTCHM 6 1ST [place] [address] SCALF LEI SCALF LEI SURG 6 PATHOLOGY GROSS&GUSTAVO ROSCOPIC EXAM EXCISION 89588 SCALF LEI SCALF LEI MAL 6 LESION TRUNK/ARM /LEG 2.1-3.0 CM REPAIR 82095 SCALF LEI SCALF LEI INTERMEDI 6 ATE S/A/T/E 2.6-7.[address] MRI W/WO 6 NO NO CONTRAST MED CTR MED CTR & FURTHER CATERING AND EVENTS MANAGER ST CATERING AND EVENTS MANAGER ST SEQ INJ A[address] GADOBENAT 6 NO NO E MED CTR MED CTR DIMEGLUMI CATERING AND EVENTS MANAGER ST CATERING AND EVENTS MANAGER ST [place]ULT[place] [address] ACTIVATED 6 NO NO ECG LAUREANO LAUREANO RECORD MONITOR [address] [place] [address] [address] ISAURA ACTIVTD 6 NO CARLOS EDUARDO ECG DWNLD W/R&I PHYSICIAN </30 DAYS S BX SKIN 41761 GRAVES GRAVES SUBCUTANE 6 LES LES OUS&/MUCO US MEMBRANE 1 LESION SHVG SKIN 05932 GRAVES GRAVES LESION 1 6 LES LES TRUNK/ARM /LEG DIAM 0.6-1.0 CM IMHISTOCH 23882 SCALF LEI SCALF LEI EM/CYTCHM 6 1ST [place] [address] SCALF LEI SCALF LEI SURG 6 PATHOLOGY GROSS&GUSTAVO ROSCOPIC EXAM DESTRUCTI 72300 GRAVES GRAVES ON 6 LES LES PREMALIGN ANT LESION 1ST ECG [address] FROY ROUTINE 6 NO THO ECG W/LEAST PHYSICIAN 12 LDS S W/I&R ANES 41761 ANESTHESI CELI ANURADHA CARDIAC 6 A GROUP ELECTROPH PRACTICE, YSIOL I STDY W/RF ABLATION PROGRAMME 08136 ST FROY D STIMJ & 6 NO THO PACG AFTER IV PHYSICIAN DRUG NFS S EPHYS 28769 ST FROY EVAL 6 NO THO W/ABLATIO N PHYSICIAN SUPRAVENT S ARRHYTHMI A COMPRE 88011 [facility] ELECTROPH 6 NO THO YSIOL XM W/LEFT PHYSICIAN ATRIAL S PACNG/REC INTRACARD 36591 ST FR[facility] IAC 6 NO THO ELECTROPH YSIOLOGIC PHYSICIAN 3D S MAPPING XTRNL ECG [address] ST HARPER 6 NO MAR CONTINUOU S RHYTHM PHYSICIAN W/I&R UP S TO [address] PEREYRA LLUVIA TTHRC R-T 6 NO 2D W/WOM-MOD PHYSICIAN E COMPL S SPEC&COLR D DESTRUCTI 27425 GRAVES GRAVES ON 5 LES LES PREMALIGN ANT LESION 1ST DESTRUCTI 15802 GRAVES GRAVES ON 5 LES LES PREMALIGN ANT LESION 2-[address] AARON BAR ROUTINE 5 NO ECG MED CTR W/LEAST 12 LDS I&R ONLY HOSPITAL 68720 [facility] DISCHARGE 5 NO THO DAY MANAGEMEN PHYSICIAN T 30 S MIN/< SBSQ 78531 [facility] 25 PHYSICIAN MINUTES S ECG [address] [facility] MAGO MAR ROUTINE 5 NO ECG MED CTR W/LEAST 12 LDS I&R ONLY ECG 99748 ST MAGO MAR ROUTINE 5 NO ECG MED CTR W/LEAST 12 LDS I&R ONLY [address]IT[address] C[address]/DAY 50 PHYSICIAN MINUTES S RADIOLOGI 84932 RADIOLOGY TACOMA LLUVIA C 5 EXAMINATI ASSOCIATE ON CHEST S OF [facility] [place] FRONTAL ECG [address] [facility] FR[facility] ROUTINE 5 NO THO ECG W/LEAST PHYSICIAN 12 LDS S W/I&R COMPRE 55675 ST FORY ELECTROPH 5 NO YSIOLOGIC PHYSICIAN ARRHYTHMI S A INDUCTION COMPRE 48043 [facility] ELECTROPH 5 NO YSIOL XM W/LEFT PHYSICIAN ATRIAL S PACNG/REC INTRACARD 06641 [facility] IAC 5 NO ELECTROPH YSIOLOGIC PHYSICIAN 3D S MAPPING INTRACARD [address] [facility] ECHOCARD 5 NO W/THER/DX PHYSICIAN IVNTJ S INCL IMG S&I PROGRAMME [address] ST [address] D STIMJ & 5 [facility] PACG AFTER IV PHYSICIAN PHYSICIAN DRUG NFS S S ANES 85444 INDEPENDE RACHOVITS CARDIAC 5 NT [place] ELECTROPH ANESTHESI YSIOL OLOGIST STDY W/RF ABLATION ECG [address] [facility] FROY ROUTINE 5 NO THO ECG W/LEAST PHYSICIAN 12 LDS S W/I&R EXTERNAL [address] ECG 5 [facility] LAUREANO LAUREANO ANALYSIS REPORT XTRNL ECG [address] & 48 HR 5 NO NO RECORDING LAUREANO LAUREANO ECG [address] [facility] FROY ROUTINE 5 NO THO ECG W/LEAST PHYSICIAN 12 LDS S W/I&R DESTRUCTI 36081 GRAVES GRAVES ON 5 LES LES PREMALIGN ANT LESION 15/> ECG 43162 [facility] ROUTINE 5 NO THO ECG W/LEAST PHYSICIAN 12 LDS S W/I&R PROGRAMME 09305 ST FROY D STIMJ & 5 NO THO PACG AFTER IV PHYSICIAN DRUG NFS S COMPRE 26893 [facility] ELECTROPH 5 NO THO YSIOL XM W/LEFT PHYSICIAN ATRIAL S PACNG/REC EPHYS 39031 ST FROY EVAL 5 NO THO W/ABLATIO N PHYSICIAN SUPRAVENT S ARRHYTHMI A ANES 83257 INDEPENDE PARRISH CARDIAC 5 NT ELECTROPH ANESTHESI YSIOL OLOGIST STDY W/RF ABLATION INTRACARD 08043 ST FROY IAC 5 NO THO ELECTROPH YSIOLOGIC PHYSICIAN 3D S MAPPING BLOOD [address] COUNT 5 NO NO COMPLETE MED CTR MED CTR AUTO&AUTO CATERING AND EVENTS MANAGER ST CATERING AND EVENTS MANAGER ST DIFRNTL WBC BASIC [address] METABOLIC 5 NO NO PANEL MED CTR MED CTR CALCIUM CATERING AND EVENTS MANAGER ST CATERING AND EVENTS MANAGER ST TOTAL PROTHROMB [address] IN TIME 5 NO NO MED CTR MED CTR CATERING AND EVENTS MANAGER ST CATERING AND EVENTS MANAGER ST ECG [address] [facility] ROUTINE 5 NO THO ECG W/LEAST PHYSICIAN 12 LDS S W/I&R DESTRUCTI 70289 ATKINS ATKINS ON MAL 5 TRA TRA LESION TRUNK/ARM /LEG 1.1-2.0CM DESTRUCTI 49537 ATKINS ATKINS ON MAL 5 TRA TRA LESION TRUNK/ARM /LEG 3.1-4.0CM INJECTION A9579 [facility] 5 Y Y [facility] M BASED MR CONTRAST NOS ML CARDIAC 54891 [facility] ROMINA MRI W/WO 5 MEDICAL CONTRAST SERV & FURTHER FOUNDATIO SEQ N CARDIAC 78428 [facility] ROMINA MRI FOR 5 MEDICAL VELOCITY SERV FLOW FOUNDATIO MAPPING N ECHO 70468 [facility] R-T 5 [facility] 2D INC INC W/WOM-MOD E COMPL SPEC&COLR D ECG 77423 [facility] ROUTINE 5 [facility] ECG INC INC W/LEAST 12 LDS TRCG ONLY W/O I&R IMHISTOCH 96849 SCALF LEI SCALF LEI EM/CYTCHM 5 1ST [place]ED[place] [address] SCALF LEI SCALF LEI SURG 5 PATHOLOGY GROSS&GUSTAVO ROSCOPIC EXAM DESTRUCTI 60636 GRAVES GRAVES ON 5 LES LES PREMALIGN ANT LESION 2-14 EA BIOPSY 12051 GRAVES GRAVES SKIN 5 LES LES SUBQ&/MUC OUS MEMBRANE EA ADDL LESN DESTRUCTI 72861 GRAVES GRAVES ON 5 LES LES PREMALIGN ANT LESION 1ST BX SKIN 35412 GRAVES GRAVES SUBCUTANE 5 LES LES OUS&/MUCO US MEMBRANE 1 LESION XTRNL ECG 31637 [facility] & 48 HR 5 [facility] RECORDING INC INC EXTERNAL 99228 [facility] ECG 5 [facility] SCANNING INC INC ANALYSIS REPORT XTRNL ECG 86156 [facility] 5 [facility] S RHYTHM P W/I&R UP TO 48 HRS RADIOLOGI 82012 [facility] EXAM 5 MEDICAL LALI CHEST 2 IMAGING VIEWS ASS FRONTAL&L ATERAL Encounters Encounter Start End Date Code Location Performer Type Date OFFICE 52085 [facility] 7 7 Y [facility] 7 7 [facility] - 7 7 [facility] - 7 7 [facility] T OFFICE 76684 [facility] PETTEY OUTPATIEN 7 7 PHYSICIAN T VISIT S GROUP 15 MINUTES OFFICE [id number] [facility] OUT[facility] 7 7 T VISIT 25 MINUTES [facility]OSP[facility]UST - 7 7 [facility]UST - 7 7 [facility] OUTPATIEN [facility] T OFFICE [id number] [facility] OUTPATIEN 7 7 PHYSICIAN T VISIT S GROUP 15 MINUTES OFFICE [id number] FAMILY [place] OUTPATIEN 6 6 CARE VÍCTOR T VISIT ASSOCIATE [address] - 6 6 NO OUTPATIEN MED CTR [facility] - 6 6 NO OUTPATIEN [facility] OFFICE 23948 [facility] OUTPATIEN 6 6 LES LES T VISIT [address] [facility] OUTPATI[facility] 6 6 NO THO T VISIT 25 PHYSICIAN MINUTES S OFFICE 69007 [facility] OUTPATIEN 5 5 LES LES T VISIT [address] - 5 5 NO INPATIENT MED CTR [facility] MANAGER EMERGENCY [id number] [facility] DEPT 5 5 EMERGENCY DON[place] VISIT HIGH PHYSICIAN SEVERITY& S THREAT FUN OFFICE 54838 [facility] OUTPATI[facility] 5 5 NO THO T VISIT [address] - 5 5 NO OUTPATIEN [facility] OFFICE 59989 [facility] OUTPATIEN 5 5 LES LES T VISIT [address] [facility] OUTPATI[facility] 5 5 NO THO T VISIT [address] - 5 5 NO OUTPATIEN MED CTR T [employer] [employer] [facility] OFFICE [address]6921 [facility] CON[facility]ULTAT 5 5 NO MONROE/ESTAB PHYSICIAN PATIENT S 60 MIN HOSPITAL UNIVERSIT - 5 5 Y [facility] - 5 5 [facility] [address] [facility] 84665 [facility] 5 LES [facility] 30 MINUTES [facility] AUGUST - [address] [facility] 13094 FAMILY ROBERT [facility] 5 5 CARE R H T VISIT ASSOCIATE 15 S MINUTES
--- OUTSIDE RECORDS SUMMARY | 2016-12-13 23:41 | External Medical Summary Rpt | CCD ---
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 Name Role Phone ATKINS TRA, ATKINS Unavailable [...] GRAVES LES, GRAVES Unavailable Unavailable LES [facility] Unavailable Unavailable INC, [facility] Unavailable Unavailable [facility] P, [facility] HERFEL DONOVAN, HERFEL Unavailable Unavailable DONOVAN [facility], Unavailable Unavailable [facility] HURST LLUVIA, HURST LLUVIA Unavailable Unavailable HARPER MAR, HARPER Unavailable Unavailable MAR [facility] RONNELL ANAI, RONNELL Unavailable Unavailable [facility] SMITH ROMINA, SMITH ROMINA [...] Unavailable SCALF LEI, SCALF LEI Unavailable Unavailable [facility], Unavailable Unavailable [facility] Unavailable Unavailable HEARING 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 ST, 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 NO Unavailable Unavailable PHYSICIANS, [facility] [place], Unavailable Unavailable RED MORENO Unavailable Unavailable [facility], Unavailable Unavailable [facility] Unavailable Unavailable [facility] Unavailable Unavailable [facility], [facility] AARON BAR, AARON BAR Unavailable Unavailable Purpose Continuity of Care Document - 05-09-2012 through 2016 Problems Code Diagnosis DOS Provider Status Q211 ATRIAL 09-19-2016 [place] [facility] PHY [id number] BASAL CELL 05-28-2016 SCALF CARCINOMA SKIN OF OTHER PART OF TRUNK M2242 CHONDROMALA 05-27-2016 [facility] CONRADO PHYSICIANS PATELLAE GROUP LEFT KNEE [id number] DERANG POST 05-27-2016 [facility] HORN MED PHYSICIANS MENISC OLD GROUP TEAR/INJ LT KNEE [id number] UNS TEAR 05-27-2016 [facility] UNS ANESTH OF MENISCUS THE BLUE CURR INJ LT KNEE INIT ENC [id number] SPRAIN ANT 05-27-2016 [facility] CRUCIATE PHYSICIANS LIGAMENT LT GROUP KNEE INITIAL ENC I491 ATRIAL 05-17-2016 [facility] DEPOLARIZAT INC ION I493 VENTRICULAR 05-17-2016 [facility] DEPOLARIZAT INC ION R9431 ABNORMAL 05-17-2016 [facility]ARD [facility] IOGRAM INC D53605 ENCOUNTER 05-17-2016 [facility] FOR OTHER [facility] PREPROCEDUR INC AL EXAMINATION V83529 ENCOUNTER 05-08-2016 [facility] AL CARIOVASCUL AR EXAM G20691 ENCOUNTER 05-08-2016 [facility] P AL RESPIRATORY EXAM U68011 ENCOUNTER 05-08-2016 [facility] P AL LABORATORY EXAM Z720 TOBACCO USE 05-08-2016 [facility] [id number] COMPLEX 04-30-2016 [facility] TEAR MED PHYSICIANS MENISCUS GROUP CURR [...] F/U EXAM AFTER CMPL TX MALIG NEOPLASM W29689 PERSONAL 04-18-2016 [facility] HISTORY OTHER MALIGNANT NEOPLASM SKIN E58949 DERANGEMNT 04-12-2016 [facility] MED MEM HOS[facility] MENISCUS INC OLD TEAR/INJ LT KNEE J28438 EFFUSION 04-12-2016 [facility]NEE [facility] M7122 SYNOVIAL 04-12-2016 [facility] CYST MEDICAL POPLITEAL IMAGING ASS SPACE VAUGHN LEFT KNEE [id number] OTH TEAR 04-12-2016 [facility] MEDICAL MENISCUS IMAGING ASS CURR INJ LT KNEE INIT ENC V30412 PAIN IN 04-04-2016 [facility] LEFT KNEE [facility] M7989 OTHER 04-04-2016 [facility] SPECIFIED MEDICAL SOFT TISSUE IMAGING ASS DISORDERS I49.1 Atrial 10-12-2015 premature depolarizat ion R002 PALPITATION 09-29-2015 [facility] I471 SUPRAVENTRI 08-16-2015 ST CULAR NO TACHYCARDIA PHYSICIANS C4491 BASAL CELL 07-19-2015 SCALF LEI CARCINOMA OF SKIN, UNSPECIFIED D0439 CARCINOMA 07-19-2015 SCALF LEI IN SITU OF SKIN OF OTHER PARTS OF FACE P30161 SQUAMOUS 05-18-2015 SCALF LEI CELL CARCINOMA SKIN [...] N OF HEART MED CTR UNSPECIFIED 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 NO OF [facility] Z8249 FAMILY HX 01-21-2015 ST ISCHEMIC NO HRT DZ OTH MED CTR DZ CIRC SYSTEM J189 PNEUMONIA 01-03-2015 [facility] UNSPECIFIED EMERGENCY ORGANISM PHYSICIANS 69788 SUPRAVENTRI 11-25-2014 ST CULAR NO PREMATURE PHYSICIANS BEATS 99477 OTHER 11-25-2014 ST PREMATURE NO BEATS PHYSICIANS 27996 OTHER 11-25-2014 ST SPECIFIED NO CARDIAC PHYSICIANS DYSRHYTHMIA S I47.1 Supraventri 11-18-2014 cular tachycardia 2166 KARLO 10-27-2014 GRAVES LES NEOPLASM SKIN UPPER LIMB INCLUDING SHOULDER 52049 OTHER 10-27-2014 GRAVES LES CHRONIC DERMATITIS DUE TO SOLAR RADIATION 7020 ACTINIC 10-27-2014 GRAVES LES KERATOSIS V1083 PERSONAL 10-27-2014 GRAVES LES HISTORY OTHER MALIGNANT NEOPLASM SKIN V6549 OTHER 10-27-2014 GRAVES LES SPECIFIED COUNSELING V7260 LABORATORY 09-05-2014 ST EXAMINATION NO MED CTR HEARING 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 UNSPECIFIED ST 36217 BASAL CELL 07-27-2014 ATKINS TRA CARCINOMA SKIN TRUNK EXCEPT SCROTUM 47696 BASAL CELL 07-27-2014 ATKINS TRA CARCINOMA SKIN UPPER LIMB INCL SHOULD 4293 CARDIOMEGAL 07-18-2014 [facility] 7455 OSTIUM 07-18-2014 [facility] TYPE ATRIAL [facility] SEPTAL DEFECT 7851 PALPITATION 07-11-2014 [facility] 2165 BENIGN 06-23-2014 GRAVES LES NEOPLASM OF SKIN OF TRUNK EXCEPT SCROTUM 2167 BENIGN 06-23-2014 GRAVES LES NEOPLASM SKIN LOWER LIMB INCLUDING HIP 2168 BENIGN 06-23-2014 SCALF LEI NEOPLASM OF OTHER SPECIFIED SITES OF SKIN 2382 NEOPLASM OF 06-23-2014 SCALF LEI UNCERTAIN BEHAVIOR OF SKIN 6869 UNSPEC 06-23-2014 SCALF LEI LOCAL INFECTION SKIN&SUBCUT ANEOUS TISSUE 15659 CHEST PAIN 06-09-2014 [facility] Medications Na ND Rx Da Fi [...] 1 84 PH CE AR TA MA WA CY NO PH #5 EN 91 5- [...] 017 K/mm3 ed monocyt 22:44 e count [place] % 2 = 3.5 % 1.7-9.3 complet [...] Procedure DOS Code Location Performer Comment DOPPLER 14483 [facility] ECHOCARD 7 Y OF PULSE [place] WAVE I PHY W/SPECTRA L DISPLAY INJECTION J3010 [facility] FENTANYL 7 Y OF Y OF CITRATE [place] 0.1 MG I MED I MED DOP 28758 [facility] ECHOCARD 7 Y OF COLOR [place] FLOW I PHY VELOCITY MAPPING ECHO 03585 [facility] TRANSESOP 7 Y OF HAG R-T [place] 2D W/PRB I PHY IMG ACQUISJ I&R JOSÉ ANTONIO W OR C8925 [facility] W/O FLW 7 Y OF Y OF W/CNTRST [place] REAL TIME I MED I MED 2D; ACQ I&R INJECTION J2250 [facility] 7 Y OF Y OF MIDAZOLAM [place] HCL PER I MED I MED 1 MG IMHISTOCH 65129 SCALF SCALF EM/CYTCHM 7 1ST [place] [address] SCALF SCALF SURG 7 PATHOLOGY GROSS&GUSTAVO ROSCOPIC EXAM EXCISION 58083 BELLE BELLE MAL 7 LESION TRUNK/ARM /LEG 2.1-3.0 CM REPAIR 61082 BELLE BELLE INTERMEDI 7 ATE S/A/T/E 2.6-7.5 CM ANES 42652 [facility] OPEN/SURG 7 ANESTH OF THE ARTHROSCO BLUE PIC PROC KNEE JOINT NOS URNLS DIP 41178 [facility] STICK/TAB INC INC LET REAGENT AUTO MICROSCOP Y ARTHROSCO 75158 [facility] PY KNEE 7 [facility] W/MENISCU INC INC S RPR MEDIAL/LA TERAL ARTHRS 18974 [facility] KNEE 7 MEM HOS[facility] ABRASION INC INC ARTHRP/ML T DRLG/MICR OFX ECHO 94311 [facility] TTHRC R-T 7 [facility]OS[facility] 2D INC INC W/WOM-MOD E COMPL SPEC&COLR D ECG 82544 [facility] ROUTINE 7 [facility] ECG INC INC W/LEAST 12 LDS TRCG ONLY W/O I&R ECG 84106 [facility] ROUTINE 7 [facility] ECG INC INC W/LEAST 12 LDS TRCG ONLY W/O I&R BLOOD 23777 [facility] COUNT 7 [facility] COMPLETE INC INC AUTO&AUTO DIFRNTL WBC RADIOLOGI 58881 [facility] EXAM 7 MEDICAL CHEST 2 IMAGING VIEWS ASS FRONTAL&L ATERAL ECG 74385 [facility] ROUTINE 7 [facility] W/LEAST P 12 LDS I&R ONLY BASIC 07008 [facility] METABOLIC 7 [facility] HOS[facility] PANEL INC INC CALCIUM TOTAL COLLECTIO 68986 [facility] N VENOUS 7 [facility] H[facility] BLOOD INC INC VENIPUNCT URE DESTRUCTI 30566 BELLE BELLE ON 7 PREMALIGN ANT LESION 2-14 EA BX SKIN 56589 BELLE BELLE SUBCUTANE 7 OUS&/MUCO US MEMBRANE 1 LESION IMHISTOCH 69817 SCALF SCALF EM/CYTCHM 7 1ST [place] [address] SCALF SCALF SURG 7 PATHOLOGY GROSS&GUSTAVO ROSCOPIC EXAM DESTRUCTI 86430 YOSHI BELLE ON 7 PREMALIGN ANT LESION 1ST MRI ANY 63736 [facility] JT LOWER 7 [facility] EXTREM INC INC W/O CONTRAST MATRL RADIOLOGI 88270 [facility] C EXAM 7 [facility] KNEE INC INC COMPLETE 4/MORE VIEWS EPHYS 71415 [facility] EVAL 6 NO THO W/ABLATIO N PHYSICIAN SUPRAVENT S ARRHYTHMI A ANES 77246 ANESTHESI RONNELL CARDIAC 6 A GROUP ANAI ELECTROPH PRACTICE YSIOL STDY W/RF ABLATION COMPRE 14089 [facility] ELECTROPH 6 NO THO YSIOL XM W/LEFT PHYSICIAN ATRIAL S PACNG/REC INTRACARD 32462 [facility] IAC 6 NO THO ELECTROPH YSIOLOGIC PHYSICIAN 3D S MAPPING DESTRUCTI 13786 SCALF LEI SCALF LEI ON MAL 6 LESION F/E/E/N/L /M 0.6-1.0CM IMHISTOCH 54783 SCALF LEI SCALF LEI EM/CYTCHM 6 1ST [place] [address] SCALF LEI SCALF LEI SURG 6 PATHOLOGY GROSS&GUSTAVO ROSCOPIC EXAM EXCISION 93962 SCALF LEI SCALF LEI MAL 6 LESION TRUNK/ARM /LEG 2.1-3.0 CM REPAIR 92096 SCALF LEI SCALF LEI INTERMEDI 6 ATE S/A/T/E 2.6-7.[address] MRI W/WO 6 NO NO CONTRAST MED CTR MED CTR & FURTHER HEARING 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 ST HEARING 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 ST SEQ INJ A[address] GADOBENAT 6 NO NO E MED CTR MED CTR DIMEGLUMI HEARING 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 ST HEARING 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 ST [place] MULTIH[place] [address] ACTIVATED 6 NO NO ECG LAUREANO LAUREANO RECORD MONITOR [address] [place] [address] [address] ISAURA ACTIVTD 6 NO CARLOS EDUARDO ECG DWNLD W/R&I PHYSICIAN </30 DAYS S BX SKIN 08470 GRAVES GRAVES SUBCUTANE 6 LES LES OUS&/MUCO US MEMBRANE 1 LESION SHVG SKIN 09420 GRAVES GRAVES LESION 1 6 LES LES TRUNK/ARM /LEG DIAM 0.6-1.0 CM IMHISTOCH 89758 SCALF LEI SCALF LEI EM/CYTCHM 6 1ST [place] [address] SCALF LEI SCALF LEI SURG 6 PATHOLOGY GROSS&GUSTAVO ROSCOPIC EXAM DESTRUCTI 53564 GRAVES GRAVES ON 6 LES LES PREMALIGN ANT LESION 1ST ECG [address] [facility] ROUTINE 6 NO THO ECG W/LEAST PHYSICIAN 12 LDS S W/I&R ANES 20551 ANESTHESI CELI ANURADHA CARDIAC 6 A GROUP ELECTROPH PRACTICE, YSIOL I STDY W/RF ABLATION PROGRAMME 49287 [facility] D STIMJ & 6 NO THO PACG AFTER IV PHYSICIAN DRUG NFS S EPHYS 47779 [facility] EVAL 6 NO THO W/ABLATIO N PHYSICIAN SUPRAVENT S ARRHYTHMI A COMPRE 40124 [facility] ELECTROPH 6 NO THO YSIOL XM W/LEFT PHYSICIAN ATRIAL S PACNG/REC INTRACARD 49[address] [facility] IAC 6 NO THO ELECTROPH YSIOLOGIC PHYSICIAN 3D S MAPPING XTRNL ECG [address]21 ST HARPER 6 NO MAR CONTINUOU S RHYTHM PHYSICIAN W/I&R UP S TO [address] PEREYRA LLUVIA TTHRC R-T 6 NO 2D W/WOM-MOD PHYSICIAN E COMPL S SPEC&COLR D DESTRUCTI 40709 GRAVES GRAVES ON 5 LES LES PREMALIGN ANT LESION 1ST DESTRUCTI 25794 GRAVES GRAVES ON 5 LES LES PREMALIGN ANT LESION 2-[address] AARON BAR ROUTINE 5 NO ECG MED CTR W/LEAST 12 LDS I&R ONLY HOSPITAL [address] [facility] DISCHARGE 5 NO THO DAY MANAGEMEN PHYSICIAN T 30 S MIN/< SBSQ 77580 [facility] 25 PHYSICIAN MINUTES S ECG [address] [facility] MAG[facility] MAR ROUTINE 5 NO ECG MED CTR W/LEAST 12 LDS I&R ONLY ECG 0[address]36 [facility] MAR ROUTINE 5 NO ECG MED CTR W/LEAST 12 LDS I&R ONLY [address] C[address]/DAY 50 PHYSICIAN MINUTES S RADIOLOGI 59436 RADIOLOGY [place] C 5 EXAMINATI ASSOCIATE ON CHEST S OF [facility] [place] FRONTAL ECG 69618 [facility] ROUTINE 5 NO THO ECG W/LEAST PHYSICIAN 12 LDS S W/I&R COMPRE 42624 [facility] ELECTROPH 5 NO YSIOLOGIC PHYSICIAN ARRHYTHMI S A INDUCTION COMPRE 10298 [facility] ELECTROPH 5 NO YSIOL XM W/LEFT PHYSICIAN ATRIAL S PACNG/REC INTRACARD 96289 [facility] IAC 5 NO ELECTROPH YSIOLOGIC PHYSICIAN 3D S MAPPING INTRACARD [address]30 [facility] ECHOCARD 5 NO W/THER/DX PHYSICIAN IVNTJ S INCL IMG S&I PROGRAMME 84422 ST ST D STIMJ & 5 [facility] PACG AFTER IV PHYSICIAN PHYSICIAN DRUG NFS S S ANES 54185 INDEPENDE RACHOVITS CARDIAC 5 NT [place] ELECTROPH ANESTHESI YSIOL OLOGIST STDY W/RF ABLATION ECG [address] [facility] ROUTINE 5 NO THO ECG W/LEAST PHYSICIAN 12 LDS S W/I&R EXTERNAL [address] [facility] LAUREANO LAUREANO ANALYSIS REPORT XTRNL ECG [address] & 48 HR 5 NO NO RECORDING LAUREANO LAUREANO ECG 62231 [facility] ROUTINE 5 NO THO ECG W/LEAST PHYSICIAN 12 LDS S W/I&R DESTRUCTI 47251 GRAVES GRAVES ON 5 LES LES PREMALIGN ANT LESION 15/> ECG 73425 [facility] ROUTINE 5 NO THO ECG W/LEAST PHYSICIAN 12 LDS S W/I&R PROGRAMME 34190 [facility] D STIMJ & 5 NO THO PACG AFTER IV PHYSICIAN DRUG NFS S COMPRE 80631 [facility] ELECTROPH 5 NO THO YSIOL XM W/LEFT PHYSICIAN ATRIAL S PACNG/REC EPHYS 41969 [facility] EVAL 5 NO THO W/ABLATIO N PHYSICIAN SUPRAVENT S ARRHYTHMI A ANES 12998 INDEPENDE PARRISH CARDIAC 5 NT ELECTROPH ANESTHESI YSIOL OLOGIST STDY W/RF ABLATION INTRACARD 34089 [facility] IAC 5 NO THO ELECTROPH YSIOLOGIC PHYSICIAN 3D S MAPPING BLOOD [address] COUNT 5 NO NO COMPLETE MED CTR MED CTR AUTO&AUTO HEARING 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 ST HEARING 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 ST DIFRNTL WBC BASIC [address] METABOLIC 5 NO NO PANEL MED CTR MED CTR CALCIUM HEARING 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 ST HEARING 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 ST TOTAL PROTHROMB [address] IN TIME 5 NO NO MED CTR MED CTR HEARING 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 ST HEARING 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 ST ECG [address] [facility] ROUTINE 5 NO THO ECG W/LEAST PHYSICIAN 12 LDS S W/I&R DESTRUCTI 42495 ATKINS ATKINS ON MAL 5 TRA TRA LESION TRUNK/ARM /LEG 1.1-2.0CM DESTRUCTI 28073 ATKINS ATKINS ON MAL 5 TRA TRA LESION TRUNK/ARM /LEG 3.1-4.0CM INJECTION A9579 [facility] 5 Y Y [facility] M BASED MR CONTRAST NOS ML CARDIAC 27799 [place] [facility] ROMINA MRI W/WO 5 MEDICAL CONTRAST SERV & FURTHER FOUNDATIO SEQ N CARDIAC 03200 [facility] ROMINA MRI FOR 5 MEDICAL VELOCITY SERV FLOW FOUNDATIO MAPPING N ECHO 23793 [facility] TTH[facility] R-T 5 [facility] 2D INC INC W/WOM-MOD E COMPL SPEC&COLR D ECG 95630 [facility] ROUTINE 5 [facility] ECG INC INC W/LEAST 12 LDS TRCG ONLY W/O I&R IMHISTOCH 15236 SCALF LEI SCALF LEI EM/CYTCHM 5 1ST [place]ED[place] [address] SCALF LEI SCALF LEI SURG 5 PATHOLOGY GROSS&GUSTAVO ROSCOPIC EXAM DESTRUCTI 17697 GRAVES GRAVES ON 5 LES LES PREMALIGN ANT LESION 2-14 EA BIOPSY 72122 GRAVES GRAVES SKIN 5 LES LES SUBQ&/MUC OUS MEMBRANE EA ADDL LESN DESTRUCTI 06833 GRAVES GRAVES ON 5 LES LES PREMALIGN ANT LESION 1ST BX SKIN 42807 GRAVES GRAVES SUBCUTANE 5 LES LES OUS&/MUCO US MEMBRANE 1 LESION XTRNL ECG 50357 [facility] & 48 HR 5 [facility] RECORDING INC INC EXTERNAL 23557 [facility] ECG 5 [facility] H[facility] SCANNING INC INC ANALYSIS REPORT XTRNL ECG 06789 [facility] 5 [facility] S RHYTHM P W/I&R UP TO 48 HRS RADIOLOGI 76235 [facility] EXAM 5 MEDICAL LALI CHEST 2 IMAGING VIEWS ASS FRONTAL&L ATERAL Encounters Encounter Start End Date Code Location Performer Type Date OFFICE 78159 [facility] OUT[facility]IEN 7 7 Y OF [facility] 7 7 [facility] - 7 7 [facility] - 7 7 [facility] T OFFICE 02658 [facility] PETTEY OUTPATIEN 7 7 PHYSICIAN T VISIT S GROUP 15 MINUTES OFFICE 23237 [facility] OUTPATIEN 7 7 T VISIT 25 MINUTES HOSPITAL [facility] - 7 7 [facility] OUTPATIEN INC T [facility]OSPITAL [facility] - 7 7 [facility] OUTPATIEN [facility] T OFFICE 53215 [facility] PETTEY OUTPATIEN 7 7 PHYSICIAN T VISIT S GROUP 15 MINUTES OFFICE 47397 [facility] OUTPATIEN 6 6 CARE VÍCTOR T VISIT ASSOCIATE [address] - 6 6 NO OUTPATIEN MED [facility] T [facility] - 6 6 NO OUTPATIEN [facility] OFFICE 02120 GRAVES GRAVES OUTPATIEN 6 6 LES LES T VISIT [address] [facility] OUT[facility] 6 6 NO THO T VISIT 25 PHYSICIAN MINUTES S OFFICE 86243 GRAVES GRAVES OUTPATIEN 5 5 LES LES T VISIT [address] - 5 5 NO INPATIENT MED CTR HEARING 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 EMERGENCY 01285 [facility] DEPT 5 5 EMERGENCY DONOVAN VISIT HIGH PHYSICIAN SEVERITY& S THREAT FUN OFFICE 44131 [facility] OUTPATIEN 5 5 NO THO T VISIT [address] - 5 5 NO OUTPATIEN LAUREANO OFFICE 57381 GRAVES GRAVES OUTPATIEN 5 5 LES LES T VISIT [address] [facility] OUTPATIEN 5 5 NO THO T VISIT [address] - 5 5 NO OUTPATIEN MED CTR T HEARING 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 OFFICE 66424 [facility] 5 5 NO MONROE/ESTAB PHYSICIAN PATIENT S 60 MIN HOSPITAL UNIVERSIT - 5 5 Y [facility] - 5 5 [facility] - 5 5 [facility] 77149 [facility] 5 LES LES [facility] 30 MINUTES [facility] AUGUST - 5 5 [facility] 49194 [facility] 5 5 CARE R H T VISIT ASSOCIATE 15 S MINUTES
--- OUTSIDE RECORDS SUMMARY | 2016-12-13 23:43 | External Medical Summary Rpt | CCD ---
Author Author , YOSHI Organization YOSHI Address Unknown Phone [email or web address] Care Team Providers Care Checkering Machine Operator Name Role Phone ATKINS TRA, ATKINS Unavailable Unavailable TRA ATKINS TRA, ATKINS Unavailable Unavailable TRA BESSON, BESSON Unavailable Unavailable BESSON ROMINA, BESSON Unavailable Unavailable ROMINA BELLE, BELLE Unavailable Unavailable BELLE, BELLE Unavailable Unavailable BURGER, BURGER Unavailable Unavailable FROY, FROY Unavailable Unavailable [facility], Unavailable Unavailable [facility] Unavailable Unavailable [facility], [facility] Unavailable Unavailable PHYSICIANS, [facility] ILIANA RENEE, ILIANA Unavailable Unavailable VÍCTOR FAY LALI, Unavailable Unavailable FAY LALI PEREYRA LLUVIA, PEREYRA LLUVIA Unavailable Unavailable CELI ANURADHA, CELI ANURADHA Unavailable [facility]available [facility], [facility] GRAVES LES, GRAVES Unavailable Unavailable LES GRAVES LES, GRAVES Unavailable Unavailable LES [facility] Un[facility] Unavailable INC, [facility] Un[facility] Un[facility] P, [facility] HERFEL DONOVAN, HERFEL Unavailable Unavailable DONOVAN [facility], Unavailable Unavailable [facility] HURST LLUVIA, HURST LLUVIA Unavailable Unavailable HARPER MAR, HARPER Unavailable Unavailable MAR [facility] Un[facility] Unavailable [facility], [facility], [facility] SMITH ROMINA, SMITH ROMINA Unavailable Unavailable VIRGEN JR, VIRGEN JR Unavailable Unavailable MAGO MAR, MAGO MAR Unavailable Unavailable PARRISH, PARRISH Unavailable Unavailable ROBERT R H, Unavailable Unavailable ROBERT R H PARK CORRINE, PARK CORRINE Unavailable Unavailable PETTEY, PETTEY Unavailable Unavailable ISAURA CARLOS EDUARDO, Unavailable Unavailable ISAURA CARLOS EDUARDO SCALF, SCALF Unavailable Unavailable SCALF, SCALF Unavailable Unavailable SCALF LEI, SCALF LEI Unavailable Unavailable SCALF LEI, SCALF LEI Unavailable Unavailable DAILY GAR, DAILY Unavailable Unavailable GAR YOLANDA VERENICE, YOLANDA Unavailable Unavailable VERENICE [facility], Unavailable Unavailable [facility] Unavailable Unavailable REO ASSET MANAGER ST, [facility] REO ASSET MANAGER ST ST NO Unavailable Unavailable PHYSICIANS, [facility], Unavailable Unavailable [facility] STUMP, STUMP Unavailable Unavailable [place] Unavailable Unavailable [facility], Unavailable Unavailable [facility] Unavailable Unavailable [facility] Unavailable Unavailable [place] [facility], [facility] WELLS ADDISON, WELLS ADDISON Unavailable Unavailable AARON BAR, AARON BAR Unavailable Unavailable Purpose Continuity of Care Document - 05-18-2014 through 2016 Problems Code Diagnosis DOS Provider Status Q211 ATRIAL 09-19-2016 [facility] PH[facility] [id number] BASAL CELL 05-28-2016 SCALF CARCINOMA SKIN OF OTHER PART OF TRUNK M2242 CHONDROMALA 05-27-2016 [facility] CONRADO PHYSICIANS PATELLAE GROUP LEFT KNEE [id number] DERANG POST 05-27-2016 [facility] HORN MED PHYSICIANS MENISC OLD GROUP TEAR/INJ LT KNEE [id number] UNS TEAR 05-27-2016 [facility] UNS ANESTH OF MENISCUS [facility] CURR INJ LT KNEE INIT ENC [id number] SPRAIN ANT 05-27-2016 [facility] CRUCIATE PHYSICIANS LIGAMENT LT GROUP KNEE INITIAL ENC I491 ATRIAL 05-17-2016 [facility] DEPOLARIZAT INC ION I493 VENTRICULAR 05-17-2016 [facility] DEPOLARIZAT INC ION R9431 ABNORMAL 05-17-2016 [facility]LECTROCARD [facility] IOGRAM INC K11005 ENCOUNTER 05-17-2016 [facility] FOR OTHER [facility] PREPROCEDUR INC AL EXAMINATION X34852 ENCOUNTER 05-08-2016 [facility] AL CARIOVASCUL AR EXAM W91200 ENCOUNTER 05-08-2016 [facility] AL RESPIRATORY EXAM U40571 ENCOUNTER 05-08-2016 [facility] AL LABORATORY EXAM Z720 TOBACCO USE 05-08-2016 [facility] [id number] COMPLEX 04-30-2016 [facility] TEAR MED PHYSICIANS MENISCUS GROUP CURR UNS [...] F/U EXAM AFTER CMPL TX MALIG NEOPLASM G81149 PERSONAL 04-18-2016 BELLE HISTORY OTHER MALIGNANT NEOPLASM SKIN T32561 DERANGEMNT 04-12-2016 [facility] UNS MED [facility] MENISCUS INC OLD TEAR/INJ LT KNEE I58186 EFFUSION 04-12-2016 [facility] M7122 SYNOVIAL 04-12-2016 [place] CYST [facility] POPLITEAL IMAGING ASS SPACE VAUGHN LEFT KNEE [id number] OTH TEAR 04-12-2016 [place] [facility] MENISCUS IM[facility] ASS CURR INJ LT KNEE INIT ENC Y08166 PAIN IN 04-04-2016 [place] LEFT [facility]NEE [facility] M7989 OTHER 04-04-2016 [place] SPECIFIED MEDICAL SOFT TISSUE IMAGING ASS DISORDERS R002 PALPITATION 09-29-2015 [facility] I471 SUPRAVENTRI 08-16-2015 ST CULAR NO TACHYCARDIA PHYSICIANS C4491 BASAL CELL 07-19-2015 SCALF LEI CARCINOMA OF SKIN, UNSPECIFIED D0439 CARCINOMA 07-19-2015 SCALF LEI IN SITU OF SKIN OF OTHER PARTS OF FACE U55201 SQUAMOUS 05-18-2015 SCALF LEI CELL CARCINOMA SKIN OTHER PARTS OF FACE C4441 BASAL CELL 05-18-2015 SCALF LEI CARCINOMA OF SKIN OF SCALP AND NECK D2239 MELANOCYTIC 05-18-2015 GRA[facility]ES LES NEVI OF OTHER PARTS OF FACE D485 NEOPLASM OF 05-18-2015 GRAVES LES UNCERTAIN BEHAVIOR OF SKIN L570 ACTINIC 05-18-2015 GRA[facility]ES LES KERATOSIS L720 EPIDERMAL 05-18-2015 GRA[facility]ES LES CYST I4892 UNSPECIFIED 04-25-2015 ATRIAL NO FLUTTER PHYSICIANS R0602 SHORTNESS 03-22-2015 ST OF BREATH NO PHYSICIANS R079 CHEST PAIN 03-22-2015 ST UNSPECIFIED NO PHYSICIANS L814 OTHER 02-16-2015 GRAVES LES MELANIN HYPERPIGMEN TATION 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 MED CTR UNSPECIFIED Z7982 PENITENTIARY 01-21-2015 CURRENT USE NO OF [facility] Z8249 FAMILY HX 01-21-2015 ST ISCHEMIC NO HRT DZ OTH MED CTR DZ CIRC SYSTEM J189 PNEUMONIA 01-03-2015 [facility] UNSPECIFIED EMERGENCY ORGANISM PHYSICIANS 12977 SUPRAVENTRI 11-25-2014 ST CULAR NO PREMATURE PHYSICIANS BEATS 68034 OTHER 11-25-2014 ST PREMATURE NO BEATS PHYSICIANS 28801 OTHER 11-25-2014 ST SPECIFIED NO CARDIAC PHYSICIANS DYSRHYTHMIA S 2166 KARLO 10-27-2014 GRAVES LES NEOPLASM SKIN UPPER LIMB INCLUDING SHOULDER 09561 OTHER 10-27-2014 GRAVES LES CHRONIC DERMATITIS DUE TO SOLAR RADIATION 7020 ACTINIC 10-27-2014 GRAVES LES KERATOSIS V1083 PERSONAL 10-27-2014 GRA[facility]ES LES HISTORY OTHER MALIGNANT NEOPLASM SKIN V6549 OTHER 10-27-2014 GRAVES LES SPECIFIED COUNSELING V7260 LABORATORY 09-05-2014 ST EXAMINATION NO MED CTR REO 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 UNSPECIFIED ST 11921 BASAL CELL 07-27-2014 ATKINS TRA CARCINOMA SKIN TRUNK EXCEPT SCROTUM 53366 BASAL CELL 07-27-2014 ATKINS TRA CARCINOMA SKIN UPPER LIMB INCL SHOULD 4293 CARDIOMEGAL 07-18-2014 [facility] 7455 OSTIUM 07-18-2014 [facility] TYPE [facility]IAL [facility] SEPTAL DEFECT 7851 PALPITATION 07-11-2014 [employer] MED[facility] S SERV [facility] 2165 BENIGN 06-23-2014 GRAVES LES NEOPLASM OF SKIN OF TRUNK EXCEPT SCROTUM 2167 BENIGN 06-23-2014 GRAVES LES NEOPLASM SKIN LOWER LIMB INCLUDING HIP 2168 BENIGN 06-23-2014 SCALF LEI NEOPLASM OF OTHER SPECIFIED SITES OF SKIN 2382 NEOPLASM OF 06-23-2014 SCALF LEI UNCERTAIN BEHAVIOR OF SKIN 6869 UNSPEC 06-23-2014 SCALF LEI LOCAL INFECTION SKIN&SUBCUT ANEOUS TISSUE 16000 CHEST PAIN 06-09-2014 PSYCHIATRIC P Medications Na ND Rx Da Fi [...] 1 84 PH CE AR TA MA SD CY NO PH #5 EN 91 5- 32 5 Procedures Procedure DOS Code Location Performer Comment JOSÉ ANTONIO W OR C8925 [facility] W/O FLW 7 Y OF Y OF W/CNTRST [place] REAL TIME I MED I MED 2D; ACQ I&R ECHO 86375 [facility] 7 Y OF HAG R-T [place] 2D W/PRB I PHY IMG ACQUISJ I&R DOP 82245 [facility] ECHOCARD 7 Y OF COLOR [place] FLOW I PHY VELOCITY MAPPING INJECTION J3010 [facility] FENTANYL 7 Y OF Y OF CITRATE [place] 0.1 MG I MED I MED DOPPLER 32350 [facility] ECHOCARD 7 Y OF PULSE [place] WAVE I PHY W/SPECTRA L DISPLAY INJECTION J2250 [facility] 7 Y OF Y OF MIDAZOLAM [place] HCL PER I MED I MED 1 MG EXCISION 74571 BELLE BELLE MAL 7 LESION TRUNK/ARM /LEG 2.1-3.0 CM REPAIR 99192 BELLE BELLE INTERMEDI 7 ATE S/A/T/E 2.6-7[place] [address] SCALF SCALF SURG 7 PATHOLOGY GROSS&GUSTAVO ROSCOPIC EXAM IMHISTOCH 86667 SCALF SCALF EM/CYTCHM 7 1ST ANTIBODY STAIN PROCEDURE ARTHROSCO 43447 [facility] PETTEY PY KNEE 7 PHYSICIAN W/MENISCU S GROUP S RPR MEDIAL/LA TERAL ARTHRS 84467 [facility] STUMP KNEE 7 PHYSICIAN ABRASION S GROUP ARTHRP/ML T DRLG/MICR OFX URNLS DIP 98616 [facility] STICK/TAB INC INC LET REAGENT AUTO MICROSCOP Y ANES 14388 [facility] OPEN/SURG 7 ANESTH OF THE ARTHROSCO BLUE PIC PROC KNEE JOINT NOS ECHO 60392 [facility] TTHRC R-T 7 [facility] 2D INC INC W/WOM-MOD E COMPL SPEC&COLR D ECG 28876 [facility] ROUTINE 7 [facility] ECG INC INC W/LEAST 12 LDS TRCG ONLY W/O I&R BASIC 44984 [facility] METABOLIC 7 [facility] PANEL INC INC CALCIUM TOTAL ECG 19654 [facility] [place] ROUTINE 7 [facility] W/LEAST P 12 LDS I&R ONLY BLOOD 07347 [facility] COUNT 7 [facility] COMPLETE INC INC AUTO&AUTO DIFRNTL WBC RADIOLOGI 76757 [facility] C EXAM 7 [facility] CHEST 2 INC INC VIEWS FRONTAL&L ATERAL COLLECTIO 61404 [facility] N VENOUS 7 [facility] BLOOD INC INC VENIPUNCT URE ECG 98230 [facility] ROUTINE 7 [facility] ECG INC INC W/LEAST 12 LDS TRCG ONLY W/O I&R DESTRUCTI 05395 BELLE BELLE ON 7 PREMALIGN [place] LES[place] 1ST [place] [address] SCALF SCALF SURG 7 PATHOLOGY GROSS&GUSTAVO ROSCOPIC EXAM IMHISTOCH 96037 SCALF SCALF EM/CYTCHM 7 1ST ANTIBODY STAIN PROCEDURE BX SKIN 91084 BELLE BELLE SUBCUTANE 7 OUS&/MUCO US MEMBRANE 1 LESION DESTRUCTI 25763 BELLE BELLE ON 7 PREMALIGN ANT LESION 2-14 EA MRI ANY 09188 [facility] JT LOWER 7 MEDICAL MEDICAL EXTREM IMAGING IMAGING W/O ASS ASS CONTRAST MATRL RADIOLOGI 69591 [facility] C EXAM 7 [facility] KNEE INC INC COMPLETE 4/MORE VIEWS INTRACARD 56821 [facility] IAC 6 NO THO ELECTROPH YSIOLOGIC PHYSICIAN 3D S MAPPING COMPRE 28730 [facility] ELECTROPH 6 NO THO YSIOL XM W/LEFT PHYSICIAN ATRIAL S PACNG/REC ANES 43401 ANESTHESI [facility] CARDIAC 6 A GROUP ELECTROPH PRACTICE YSIOL STDY W/RF ABLATION EPHYS 97753 ST [facility] EVAL 6 NO THO W/ABLATIO N PHYSICIAN SUPRAVENT S ARRHYTHMI A DESTRUCTI 22520 SCALF LEI SCALF LEI ON MAL 6 LESION F/E/E/N/L /M 0.6-1.0CM EXCISION 32372 SCALF LEI SCALF LEI MAL 6 LESION TRUNK/ARM /LEG 2.1-[place] [address] SCALF LEI SCALF LEI SURG 6 PATHOLOGY GROSS&GUSTAVO ROSCOPIC EXAM IMHISTOCH 19037 SCALF LEI SCALF LEI EM/CYTCHM 6 1ST ANTIBODY STAIN PROCEDURE REPAIR 02372 SCALF LEI SCALF LEI INTERMEDI 6 ATE S/A/T/E 2.6-7.[address] GADOBENAT 6 NO NO E MED CTR MED CTR DIMEGLUMI REO ASSET MANAGER ST REO ASSET MANAGER ST NE MULTIHANC E PER ML CARDIAC 70135 RADIOLOGY [facility] MRI W/WO 6 GAR CONTRAST ASSOCIATE & FURTHER S OF [facility] [place] [address] ACTIVATED 6 NO NO ECG LAUREANO LAUREANO RECORD MONITOR 30 [place] [address] ST ISAURA ACTIVTD 6 NO CARLOS EDUARDO ECG DWNLD W/R&I PHYSICIAN </30 DAYS S DESTRUCTI 15577 GRAVES GRAVES ON 6 LES LES PREMALIGN ANT [place] 1ST [place] [address] SCALF LEI SCALF LEI SURG 6 PATHOLOGY GROSS&GUSTAVO ROSCOPIC EXAM IMHISTOCH 50389 SCALF LEI SCALF LEI EM/CYTCHM 6 1ST ANTIBODY STAIN PROCEDURE SHVG SKIN 14338 GRAVES GRAVES LESION 1 6 LES LES TRUNK/ARM /LEG DIAM 0.6-1.0 CM BX SKIN 36299 GRAVES GRAVES SUBCUTANE 6 LES LES OUS&/MUCO US MEMBRANE [address] [facility] ROUTINE 6 NO THO ECG W/LEAST PHYSICIAN 12 LDS S W/I&R INTRACARD 57366 [facility] IAC 6 NO THO ELECTROPH YSIOLOGIC PHYSICIAN 3D S MAPPING COMPRE 54593 [facility] ELECTROPH 6 NO THO YSIOL XM W/LEFT PHYSICIAN ATRIAL S PACNG/REC ANES 79221 ANESTHESI CELI ANURADHA CARDIAC 6 A GROUP ELECTROPH PRACTICE, YSIOL I STDY W/RF ABLATION EPHYS 61376 [facility] EVAL 6 NO THO W/ABLATIO N PHYSICIAN SUPRAVENT S ARRHYTHMI A PROGRAMME 08233 [facility] D STIMJ & 6 NO O PACG AFTER IV PHYSICIAN DRUG NFS S ECHO 71169 ST PEREYRA LLUVIA TTHRC R-T 6 NO 2D W/WOM-MOD PHYSICIAN E COMPL S SPEC&COLR D XTRNL ECG 72629 ST HARPER 6 NO MAR CONTINUOU S RHYTHM PHYSICIAN W/I&R UP S TO 48 HRS DESTRUCTI 47493 GRAVES GRAVES ON 5 LES LES PREMALIGN ANT LESION 1ST DESTRUCTI 11725 GRAVES GRAVES ON 5 LES LES PREMALIGN ANT LESION 2-14 [facility] [address] [facility] DISCHARGE 5 NO O DAY MANAGEMEN PHYSICIAN T 30 S MIN/< ECG 0[address]91 ST AARON BAR ROUTINE 5 NO ECG MED CTR W/LEAST 12 LDS I&R ONLY ECG [address]20 ST MAGO MAR ROUTINE 5 NO ECG MED CTR W/LEAST 12 LDS I&R ONLY SBSQ [address] CARE/DAY 25 PHYSICIAN MINUTES S ECG [address] [facility] MAGO MAR ROUTINE 5 NO ECG MED CTR W/LEAST 12 LDS I&R ONLY INITIAL [address] CARE/DAY 50 PHYSICIAN MINUTES S RADIOLOGI 19844 RADIOLOGY HURST LLUVIA C 5 EXAMINATI ASSOCIATE ON CHEST S OF [facility] [place] FRONTAL ECG [address] [facility] ROUTINE 5 NO THO ECG W/LEAST PHYSICIAN 12 LDS S W/I&R INTRACARD 04345 [facility] IAC 5 NO ELECTROPH YSIOLOGIC PHYSICIAN 3D S MAPPING ANES 35818 INDEPENDE WELLS ADDISON CARDIAC 5 NT ELECTROPH ANESTHESI YSIOL OLOGIST STDY W/RF ABLATION COMPRE 79795 [facility] ELECTROPH 5 NO YSIOLOGIC PHYSICIAN ARRHYTHMI S A INDUCTION PROGRAMME 930[address] ST ST D STIMJ & 5 NO NO PACG AFTER IV PHYSICIAN PHYSICIAN DRUG NFS S S INTRACARD 63957 [facility] ECHOCARD 5 NO W/THER/DX PHYSICIAN IVNTJ S INCL IMG S&I COMPRE 05887 [facility] ELECTROPH 5 NO YSIOL XM W/LEFT PHYSICIAN ATRIAL S PACNG/REC ECG [address] [facility] ROUTINE 5 NO THO ECG W/LEAST PHYSICIAN 12 LDS S W/I&R EXTERNAL [address] ECG 5 [facility] SCANNING LAUREANO LAUREANO ANALYSIS REPORT XTRNL ECG [address] & 48 HR 5 [facility] RECORDING LAUREANO LAUREANO ECG [address] [facility] ROUTINE 5 NO THO ECG W/LEAST PHYSICIAN 12 LDS S W/I&R DESTRUCTI 64540 GRAVES GRAVES ON 5 LES LES PREMALIGN ANT LESION 15/> ECG 74272 [facility] ROUTINE 5 NO THO ECG W/LEAST PHYSICIAN 12 LDS S W/I&R INTRACARD 86127 [facility] IAC 5 NO THO ELECTROPH YSIOLOGIC PHYSICIAN 3D S MAPPING COMPRE 86654 [facility] ELECTROPH 5 NO THO YSIOL XM W/LEFT PHYSICIAN ATRIAL S PACNG/REC EPHYS 21091 [facility] EVAL 5 NO THO W/ABLATIO N PHYSICIAN SUPRAVENT S ARRHYTHMI A PROGRAMME 43393 ST FROY D STIMJ & 5 NO THO PACG AFTER IV PHYSICIAN DRUG NFS S ANES 93874 INDEPENDE PARRISH CARDIAC 5 NT ELECTROPH ANESTHESI YSIOL OLOGIST STDY W/RF ABLATION BLOOD [address] COUNT 5 NO NO COMPLETE MED CTR MED CTR AUTO&AUTO REO ASSET MANAGER ST REO ASSET MANAGER ST DIFRNTL WBC BASIC [address] METABOLIC 5 NO NO PANEL MED CTR MED CTR CALCIUM REO ASSET MANAGER ST REO ASSET MANAGER ST TOTAL PROTHROMB [address] ST [address] IN TIME 5 NO NO MED CTR MED CTR REO ASSET MANAGER ST REO ASSET MANAGER ST ECG [address] [facility] ROUTINE 5 NO O ECG W/LEAST PHYSICIAN 12 LDS S W/I&R DESTRUCTI 32215 ATKINS ATKINS ON MAL 5 TRA TRA LESION TRUNK/ARM /LEG 3.1-4.0CM DESTRUCTI 51886 ATKINS ATKINS ON MAL 5 TRA TRA LESION TRUNK/ARM /LEG 1.1-2.0CM CARDIAC 61847 FRANTZ SMITH ROMINA MRI W/WO 5 MEDICAL CONTRAST SERV & FURTHER FOUNDATIO SEQ N INJECTION A9579 [facility] 5 Y Y [facility] M BASED MR CONTRAST NOS ML CARDIAC 84543 [facility] ROMINA MRI FOR 5 MEDICAL VELOCITY SERV FLOW FOUNDATIO MAPPING N ECHO 44393 FRANTZ GUERRERO TTHRC R-T 5 MEDICAL VERENICE 2D SERV W/WOM-MOD FOUNDATIO E COMPL N SPEC&COLR D ECG 05505 [facility] ROUTINE 5 [facility] ECG INC INC W/LEAST 12 LDS TRCG ONLY W/O I&R BIOPSY 52126 GRAVES GRAVES SKIN 5 LES LES SUBQ&/MUC OUS MEMBRANE EA ADDL LESN DESTRUCTI 70403 GRAVES GRAVES ON 5 LES LES PREMALIGN ANT LESION 2-14 EA DESTRUCTI 27183 GRAVES GRAVES ON 5 LES LES PREMALIGN [place] 1ST [place] [address] SCALF LEI SCALF LEI SURG 5 PATHOLOGY GROSS&GUSTAVO ROSCOPIC EXAM IMHISTOCH 16872 SCALF LEI SCALF LEI EM/CYTCHM 5 1ST ANTIBODY STAIN PROCEDURE BX SKIN 58821 GRAVES GRAVES SUBCUTANE 5 LES LES OUS&/MUCO US MEMBRANE 1 LESION XTRNL ECG 50066 [facility] & 48 HR 5 [facility] RECORDING INC INC XTRNL ECG 42792 [facility] S RHYTHM P W/I&R UP TO 48 HRS EXTERNAL 68153 [facility] ECG 5 [facility] SCANNING INC INC ANALYSIS REPORT RADIOLOGI 70770 [facility] C EXAM 5 MEDICAL LALI CHEST 2 IMAGING VIEWS ASS FRONTAL&L ATERAL Encounters Encounter Start End Date Code Location Performer Type Date OFFICE 39674 [facility] OUTPATIEN 7 7 Y OF T [address] [place] [address] [facility] 7 [facility] 43862 [facility] PHYSICIAN T VISIT S GROUP 15 MINUTES OFFICE 98307 [facility]HI BELLE [facility] T VISIT [facility]ES [facility] - 7 7 [facility] OFFICE 11755 [facility] PETTE OUTPATIEN 7 7 PHYSICIAN T VISIT S GROUP 15 MINUTES OFFICE 41405 [facility]NA OUTPATIEN 6 6 CARE VÍCTOR T VISIT ASSOCIATE 15 S [address] [facility] - 6 6 NO OUTPATIEN MED [facility] T [facility] - 6 6 [facility] LA[facility] T OFFICE 99718 GRAVES GRAVES OUTPATIEN 6 6 LES LES T VISIT [address] [facility] OUTPATIEN 6 6 NO THO T VISIT 25 PHYSICIAN MINUTES S OFFICE 25501 GRA[facility]ES GRAVES OUTPATIEN 5 5 LES LES T VISIT [address] - 5 5 NO INPATIENT MED CTR REO ASSET MANAGER ST EMERGENCY 75460 [facility] DEPT 5 5 EMERGENCY DONOVAN VISIT HIGH PHYSICIAN SEVERITY& S THREAT FUNCJ OFFICE 14174 [facility] OUTPATIEN 5 5 NO THO T VISIT 25 PHYSICIAN MINUTES [facility] ST. - 5 5 NO OUTPATIEN LAUREANO T OFFICE 41502 GRAVES GRAVES OUTPATIEN 5 5 LES LES T VISIT [address] [facility] OUTPATIEN 5 5 NO THO T VISIT [address] - 5 5 NO OUTPATIEN MED CTR T REO ASSET MANAGER OFFICE 58235 [facility] CONSULTAT 5 5 NO THO ION NEW/ESTAB PHYSICIAN PATIENT S 60 MIN HOSPITAL UNIVERSIT - 5 5 Y [facility] - 5 5 [facility] 79205 GRAVES GRAVES OUTPATIEN 5 5 LES LES T NEW 30 MINUTES [facility]OSP[facility] - 5 5 [facility] 07342 [facility] 5 CARE R H T VISIT ASSOCIATE 15 S MINUTES
--- OUTSIDE RECORDS SUMMARY | 2016-12-13 23:43 | External Medical Summary Rpt | CCD ---
Demographics Preferred Language Swiss Marital Status Unknown Baptism Affiliation Unknown Race Unknown Ethnic Group Unknown Author Author , YOSHI BELLE Address Unknown Phone Immunization No patient found.
--- OUTSIDE RECORDS SUMMARY | 2016-12-13 23:43 | External Medical Summary Rpt | CCD ---
Author Author , YOSHI Organization YOSHI Address Unknown Phone [email or web address] Care Team Providers Care Jewelry Engraver Name Role Phone ATKINS TRA, ATKINS Unavailable Unavailable TRA ATKINS TRA, ATKINS Unavailable Unavailable TRA BESSON, BESSON Unavailable Unavailable BESSON ROMINA, BESSON Unavailable Unavailable ROMINA BELLE, BELLE Unavailable Unavailable BELLE, BELLE Unavailable Unavailable BURGER, BURGER Unavailable Unavailable FROY, FROY Unavailable Unavailable [facility], Unavailable Unavailable [facility] Unavailable [facility]available [facility] Unavailable Unavailable PHYSICIANS, [facility] ILIANA RENEE, ILIANA Unavailable Unavailable VÍCTOR FAY LALI, Unavailable Unavailable FAY LALI PEREYRA LLUVIA, PEREYRA LLUVIA Unavailable Unavailable CELI ANURADHA, CELI ANURADHA Unavailable [facility]available [facility] GRAVES LES, GRAVES Unavailable Unavailable LES GRAVES LES, GRAVES Unavailable Unavailable LES [facility] Unavailable Unavailable INC, [facility] Unavailable Unavailable HOSPITAL P, [facility] HERFEL DONOVAN, HERFEL Unavailable Unavailable DONOVAN [facility], Unavailable Unavailable [facility] HURST LLUVIA, HURST LLUVIA Unavailable Unavailable HARPER MAR, HARPER Unavailable Unavailable MAR [facility] Unavailable Unavailable [facility], [facility] Unavailable [...] YOLANDA VERENICE, YOLANDA Unavailable Unavailable VERENICE [facility], Unavailable Unavailable [facility] Unavailable Unavailable 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, Unavailable Unavailable [facility] STUMP, STUMP Unavailable Unavailable [facility] Unavailable Unavailable [facility], Unavailable Unavailable [facility] Unavailable Unavailable [facility] Unavailable Unavailable [facility], [facility] AD[facility], WE[facility] ADDISON Unavailable Unavailable AARON BAR, AARON BAR Unavailable Unavailable Purpose Continuity of Care Document - 05-18-2014 through 2016 Problems Code Diagnosis DOS Provider Status Q211 ATRIAL 09-19-2016 ERIE SEPTAL OF [facility] PHY [id number] BASAL CELL 05-28-2016 SCALF CARCINOMA SKIN OF OTHER PART OF TRUNK M2242 CHONDROMALA 05-27-2016 [facility] CONRADO PHYSICIANS PATELLAE GROUP LEFT KNEE V32260 DERANG POST 05-27-2016 [facility] HORN MED PHYSICIANS MENISC OLD GROUP TEAR/INJ LT KNEE [id number] UNS TEAR 05-27-2016 [facility] UNS ANESTH OF MENISCUS [facility] CURR INJ LT KNEE INIT ENC [id number] SPRAIN ANT 05-27-2016 [facility] CRUCIATE PHYSICIANS LIGAMENT LT GROUP KNEE INITIAL ENC I491 ATRIAL 05-17-2016 [facility] DEPOLARIZAT INC ION I493 VENTRICULAR 05-17-2016 [facility] DEPOLARIZAT INC ION R9431 ABNORMAL 05-17-2016 [facility]ARD [facility] IOGRAM INC [id number] ENCOUNTER 05-17-2016 [facility] FOR OTHER [facility] PREPROCEDUR INC AL EXAMINATION F55420 ENCOUNTER 05-08-2016 [facility] AL CARIOVASCUL AR EXAM R02421 ENCOUNTER 05-08-2016 [facility] P AL RESPIRATORY EXAM H85289 ENCOUNTER 05-08-2016 [facility] P AL LABORATORY EXAM Z720 TOBACCO USE 05-08-2016 [facility] [id number] COMPLEX 04-30-2016 [facility] TEAR MED PHYSICIANS MENISCUS GROUP CURR [...] F/U EXAM AFTER CMPL TX MALIG NEOPLASM [id number] PERSONAL 04-18-2016 BELLE HISTORY OTHER MALIGNANT NEOPLASM SKIN K45804 DERANGEMNT 04-12-2016 [facility] UNS MED [facility] MENISCUS INC OLD TEAR/INJ LT KNEE A36190 EFFUSION 04-12-2016 [facility] [place] M7122 SYNOVIAL 04-12-2016 [place] [place] CYST MEDICAL POPLITEAL IMAGING ASS SPACE VAUGHN LEFT KNEE [id number] OTH TEAR 04-12-2016 [place] [place] MED [facility] MENISCUS IMAG[facility] ASS CURR INJ LT KNEE INIT ENC V65996 PAIN IN 04-04-2016 [place] [place] LEFT [facility]NEE [facility] M7989 OTHER 04-04-2016 [place] SPECIFIED MEDICAL SOFT TISSUE IMAGING ASS DISORDERS R002 PALPITATION 09-29-2015 [facility] I471 SUPRAVENTRI 08-16-2015 ST CULAR NO TACHYCARDIA PHYSICIANS C4491 BASAL CELL 07-19-2015 SCALF LEI CARCINOMA OF SKIN, UNSPECIFIED D0439 CARCINOMA 07-19-2015 SCAL[facility] LEI IN SITU OF SKIN OF OTHER PARTS OF FACE O69411 SQUAMOUS 05-18-2015 SCAL[facility] LEI CELL CARCINOMA SKIN [...] N OF HEART MED CTR UNSPECIFIED Z7982 MCC 01-21-2015 CURRENT USE NO OF [facility] Z8249 FAMILY HX 01-21-2015 ST ISCHEMIC NO HRT DZ OTH MED CTR DZ CIRC SYSTEM J189 PNEUMONIA 01-03-2015 [facility] UNSPECIFIED EMERGENCY ORGANISM PHYSICIANS 16740 SUPRAVENTRI 11-25-2014 ST CULAR NO PREMATURE PHYSICIANS BEATS 48563 OTHER 11-25-2014 ST PREMATURE NO BEATS PHYSICIANS 14317 OTHER 11-25-2014 ST SPECIFIED NO CARDIAC PHYSICIANS DYSRHYTHMIA S 2166 KARLO 10-27-2014 GRAVES LES NEOPLASM SKIN UPPER LIMB INCLUDING SHOULDER 17686 OTHER 10-27-2014 GRAVES LES CHRONIC DERMATITIS DUE TO SOLAR RADIATION 7020 ACTINIC 10-27-2014 GRAVES LES KERATOSIS V1083 PERSONAL 10-27-2014 GRAVES LES HISTORY OTHER MALIGNANT NEOPLASM SKIN V6549 OTHER 10-27-2014 GRAVES LES SPECIFIED COUNSELING V7260 LABORATORY 09-05-2014 ST EXAMINATION NO MED CTR 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 [facility] 2165 BENIGN 06-23-2014 GRAVES LES NEOPLASM OF SKIN OF TRUNK EXCEPT SCROTUM 2167 BENIGN 06-23-2014 GRAVES LES NEOPLASM SKIN LOWER LIMB INCLUDING HIP 2168 BENIGN 06-23-2014 SCALF LEI NEOPLASM OF OTHER SPECIFIED SITES OF SKIN 2382 NEOPLASM OF 06-23-2014 SCALF LEI UNCERTAIN BEHAVIOR OF SKIN 6869 UNSPEC 06-23-2014 SCALF LEI LOCAL INFECTION SKIN&SUBCUT ANEOUS TISSUE 92406 CHEST PAIN 06-09-2014 [facility] P Medications Na ND Rx Da Fi [...] 1 84 PH CE AR TA MA AK CY NO PH #5 EN 91 5- 32 5 Procedures Procedure DOS Code Location Performer Comment JOSÉ ANTONIO W OR C8925 [facility] W/O FLW 7 Y OF Y OF W/CNTRST [place] REAL TIME I MED I MED 2D; ACQ I&R ECHO 09078 [facility] 7 Y OF HAG R-T [place] 2D W/PRB I PHY IMG ACQUISJ I&R DOP [address] [facility] [place] [facility] E[facility] 7 Y OF COLOR [place] FLOW I PHY VELOCITY MAPPING INJECTION J3010 [facility] FENTANYL 7 Y OF Y OF CITRATE [place] 0.1 MG I MED I MED DOPPLER [address] [facility] [place] [facility] 7 Y OF PULSE [place] WAVE I PHY W/SPECTRA L DISPLAY INJECTION J2250 [facility] 7 Y OF Y OF MIDAZOLAM [place] HCL PER I MED I MED 1 MG EXCISION 58349 BELLE BELLE MAL 7 LESION TRUNK/ARM /LEG 2.1-3.0 CM REPAIR 90832 BELLE BELLE INTERMEDI 7 ATE S/A/T/E 2.6-7[place] [address] SCALF SCALF SURG 7 PATHOLOGY GROSS&GUSTAVO ROSCOPIC EXAM IMHISTOCH 63268 SCALF SCALF EM/CYTCHM 7 1ST ANTIBODY STAIN PROCEDURE ARTHROSCO 39264 [facility] PETTEY PY KNEE 7 PHYSICIAN W/MENISCU S GROUP S RPR MEDIAL/LA TERAL ARTHRS 53646 [facility] STUMP KNEE 7 PHYSICIAN ABRASION S GROUP ARTHRP/ML T DRLG/MICR OFX URNLS DIP 28286 [facility] STICK/TAB INC INC LET REAGENT AUTO MICROSCOP Y ANES 02814 [facility] OPEN/SURG 7 ANESTH OF THE ARTHROSCO BLUE PIC PROC KNEE JOINT NOS ECHO 00915 [facility] TTHRC R-T 7 [facility] 2D INC INC W/WOM-MOD E COMPL SPEC&COLR D ECG 38407 [facility] ROUTINE 7 [facility] ECG INC INC W/LEAST 12 LDS TRCG ONLY W/O I&R BASIC 38561 [facility] METABOLIC 7 [facility] PANEL INC INC CALCIUM TOTAL ECG 15680 [facility] [place] ROUTINE 7 [facility] W/LEAST P 12 LDS I&R ONLY BLOOD 37980 [facility] COUNT 7 [facility] COMPLETE INC INC AUTO&AUTO DIFRNTL WBC RADIOLOGI 59969 [facility] C EXAM 7 [facility] CHEST 2 INC INC VIEWS FRONTAL&L ATERAL COLLECTIO 18118 [facility] N VENOUS 7 [facility] BLOOD INC INC VENIPUNCT URE ECG 23137 [facility] ROUTINE 7 [facility] ECG INC INC W/LEAST 12 LDS TRCG ONLY W/O I&R DESTRUCTI 78516 BELLE BELLE ON 7 PREMALIGN [place] LES[place] 1ST [place] [address] SCALF SCALF SURG 7 PATHOLOGY GROSS&GUSTAVO ROSCOPIC EXAM IMHISTOCH 81349 SCALF SCALF EM/CYTCHM 7 1ST ANTIBODY STAIN PROCEDURE BX SKIN 46192 BELLE BELLE SUBCUTANE 7 OUS&/MUCO US MEMBRANE 1 LESION DESTRUCTI 68371 BELLE BELLE ON 7 PREMALIGN ANT LESION 2-14 EA MRI ANY 12217 [facility] JT LOWER 7 MEDICAL MEDICAL EXTREM IMAGING IMAGING W/O ASS ASS CONTRAST MATRL RADIOLOGI 35070 [facility] C EXAM 7 [facility] KNEE INC INC COMPLETE 4/MORE VIEWS INTRACARD 27924 [facility] IAC 6 NO THO ELECTROPH YSIOLOGIC PHYSICIAN 3D S MAPPING COMPRE 99084 [facility] ELECTROPH 6 NO THO YSIOL XM W/LEFT PHYSICIAN ATRIAL S PACNG/REC ANES 58377 ANESTHESI [facility] CARDIAC 6 A GROUP ELECTROPH PRACTICE YSIOL STDY W/RF ABLATION EPHYS 62851 ST [facility] EVAL 6 NO THO W/ABLATIO N PHYSICIAN SUPRAVENT S ARRHYTHMI A DESTRUCTI 60790 SCALF LEI SCALF LEI ON MAL 6 LESION F/E/E/N/L /M 0.6-1.0CM EXCISION 99929 SCALF LEI SCALF LEI MAL 6 LESION TRUNK/ARM /LEG 2.1-3[place] [address] SCALF LEI SCALF LEI SURG 6 PATHOLOGY GROSS&GUSTAVO ROSCOPIC EXAM IMHISTOCH 42003 SCALF LEI SCALF LEI EM/CYTCHM 6 1ST ANTIBODY STAIN PROCEDURE REPAIR 13732 SCALF LEI SCALF LEI INTERMEDI 6 ATE S/A/T/E 2.6-7.[address] GADOBENAT 6 NO NO E MED CTR MED CTR DIMEGLUMI POLYSTYRENE MOLDING MACHINE TENDER ST POLYSTYRENE MOLDING MACHINE TENDER ST NE MULTIHANC E PER ML CARDIAC 75971 RADIOLOGY PSYCHIATRIC MRI W/WO 6 GAR CONTRAST ASSOCIATE & [facility] [place] [address] ACTIVATED 6 NO NO ECG LAUREANO LAUREANO RECORD MONITOR 30 [place] [address] [address] ISAURA ACTIVTD 6 NO CARLOS EDUARDO ECG DWNLD W/R&I PHYSICIAN </30 DAYS S DESTRUCTI 13801 GRAVES GRAVES ON 6 LES LES PREMALIGN ANT LESION 1ST [place] [address] SCALF LEI SCALF LEI SURG 6 PATHOLOGY GROSS&GUSTAVO ROSCOPIC EXAM IMHISTOCH 11069 SCALF LEI SCALF LEI EM/CYTCHM 6 1ST ANTIBODY STAIN PROCEDURE SHVG SKIN 65787 GRAVES GRAVES LESION 1 6 LES LES TRUNK/ARM /LEG DIAM 0.6-1.0 CM BX SKIN 97565 GRAVES GRAVES SUBCUTANE 6 LES LES OUS&/MUCO US MEMBRANE [address] [facility] ROUTINE 6 NO THO ECG W/LEAST PHYSICIAN 12 LDS S W/I&R INTRACARD 73120 [facility] IAC 6 NO THO ELECTROPH YSIOLOGIC PHYSICIAN 3D S MAPPING COMPRE 49466 [facility] ELECTROPH 6 NO THO YSIOL XM W/LEFT PHYSICIAN ATRIAL S PACNG/REC ANES 95507 ANESTHESI CELI ANURADHA CARDIAC 6 A GROUP ELECTROPH PRACTICE, YSIOL I STDY W/RF ABLATION EPHYS 01458 [facility] EVAL 6 NO THO W/ABLATIO N PHYSICIAN SUPRAVENT S ARRHYTHMI A PROGRAMME [address]406 ST [facility] D STIMJ & 6 NO O PACG AFTER IV PHYSICIAN DRUG NFS S ECHO 45300 ST PEREYRA LLUVIA TTHRC R-T 6 NO 2D W/WOM-MOD PHYSICIAN E COMPL S SPEC&COLR D XTRNL ECG 95390 ST HARPER 6 NO MAR CONTINUOU S RHYTHM PHYSICIAN W/I&R UP S TO 48 HRS DESTRUCTI 56838 GRAVES GRAVES ON 5 LES LES PREMALIGN ANT LESION 1ST DESTRUCTI 93701 GRAVES GRAVES ON 5 LES LES PREMALIGN ANT LESION 2-14 [facility] [address] [facility] DISCHARGE 5 NO O DAY MANAGEMEN PHYSICIAN T 30 S MIN/< ECG [address]672 ST AARON BAR ROUTINE 5 NO ECG MED CTR W/LEAST 12 LDS I&R ONLY ECG [address] ST MAGO MAR ROUTINE 5 NO ECG MED CTR W/LEAST 12 LDS I&R ONLY SBSQ [address] CARE/DAY 25 PHYSICIAN MINUTES S ECG [address] ST MAGO MAR ROUTINE 5 NO ECG MED CTR W/LEAST 12 LDS I&R ONLY INITIAL [address] CARE/DAY 50 PHYSICIAN MINUTES S RADIOLOGI 18002 RADIOLOGY HURST LLUVIA C 5 EXAMINATI ASSOCIATE ON CHEST [facility] FRONTAL ECG [address] [facility] ROUTINE 5 NO THO ECG W/LEAST PHYSICIAN 12 LDS S W/I&R INTRACARD 43518 [facility] IAC 5 NO ELECTROPH YSIOLOGIC PHYSICIAN 3D S MAPPING ANES 43577 INDEPENDE WELLS ADDISON CARDIAC 5 NT ELECTROPH ANESTHESI YSIOL OLOGIST STDY W/RF ABLATION COMPRE 84126 [facility] ELECTROPH 5 NO YSIOLOGIC PHYSICIAN ARRHYTHMI S A INDUCTION PROGRAMME [address] D STIMJ & 5 NO NO PACG AFTER IV PHYSICIAN PHYSICIAN DRUG NFS S S INTRACARD [address] [facility] ECHOCARD 5 NO W/THER/DX PHYSICIAN IVNTJ S INCL IMG S&I COMPRE 46205 [facility] ELECTROPH 5 NO YSIOL XM W/LEFT PHYSICIAN ATRIAL S PACNG/REC ECG [address] [facility] ROUTINE 5 NO THO ECG W/LEAST PHYSICIAN 12 LDS S W/I&R EXTERNAL [address] [facility] ECG 5 [facility] SCANNING LAUREANO LAUREANO ANALYSIS REPORT XTRNL ECG [address] & 48 HR 5 [facility] RECORDING LAUREANO LAUREANO ECG [address] [facility] ROUTINE 5 NO THO ECG W/LEAST PHYSICIAN 12 LDS S W/I&R DESTRUCTI 72555 GRAVES GRAVES ON 5 LES LES PREMALIGN ANT LESION 15/> ECG [address]79 [facility] ROUTINE 5 NO THO ECG W/LEAST PHYSICIAN 12 LDS S W/I&R INTRACARD 94373 [facility] IAC 5 NO THO ELECTROPH YSIOLOGIC PHYSICIAN 3D S MAPPING COMPRE 57619 [facility] ELECTROPH 5 NO THO YSIOL XM W/LEFT PHYSICIAN ATRIAL S PACNG/REC EPHYS 41407 ST FORY EVAL 5 NO THO W/ABLATIO N PHYSICIAN SUPRAVENT S ARRHYTHMI A PROGRAMME 06871 ST FROY D STIMJ & 5 NO THO PACG AFTER IV PHYSICIAN DRUG NFS S ANES 77914 INDEPENDE PARRISH CARDIAC 5 NT ELECTROPH ANESTHESI YSIOL OLOGIST STDY W/RF ABLATION BLOOD 8[address] COUNT 5 NO NO COMPLETE MED CTR MED CTR AUTO&AUTO POLYSTYRENE MOLDING MACHINE TENDER ST POLYSTYRENE MOLDING MACHINE TENDER ST DIFRNTL WBC BASIC [address] METABOLIC 5 NO NO PANEL MED CTR MED CTR CALCIUM POLYSTYRENE MOLDING MACHINE TENDER ST POLYSTYRENE MOLDING MACHINE TENDER ST TOTAL PROTHROMB [address] IN TIME 5 NO NO MED CTR MED CTR POLYSTYRENE MOLDING MACHINE TENDER ST POLYSTYRENE MOLDING MACHINE TENDER ST ECG [address]124 [facility] ROUTINE 5 NO O ECG W/LEAST PHYSICIAN 12 LDS S W/I&R DESTRUCTI 46581 ATKINS ATKINS ON MAL 5 TRA TRA LESION TRUNK/ARM /LEG 3.1-4.0CM DESTRUCTI 55720 ATKINS ATKINS ON MAL 5 TRA TRA LESION TRUNK/ARM /LEG 1.1-2.0CM CARDIAC 02287 FRANTZ SMITH ROMINA MRI W/WO 5 MEDICAL CONTRAST SERV & [facility] FOUND[facility] SEQ N INJECTION A9579 [facility] 5 Y Y [facility] M BASED MR CONTRAST NOS ML CARDIAC 03293 [facility] ROMINA MRI FOR 5 MEDICAL VELOCITY SERV FLOW FOUNDATIO MAPPING N ECHO 74348 FRANTZ GUERRERO TTHRC R-T 5 MEDICAL VERENICE 2D SERV W/WOM-MOD FOUNDATIO E COMPL N SPEC&COLR D ECG 13334 [facility] ROUTINE 5 [facility] ECG INC INC W/LEAST 12 LDS TRCG ONLY W/O I&R BIOPSY 25564 GRAVES GRAVES SKIN 5 LES LES SUBQ&/MUC OUS MEMBRANE EA ADDL LESN DESTRUCTI 42890 GRAVES GRAVES ON 5 LES LES PREMALIGN ANT LESION 2-14 EA DESTRUCTI 18561 GRAVES GRAVES ON 5 LES LES PREMALIGN AN[place] 1ST [place] [address] SCALF LEI SCALF LEI SURG 5 PATHOLOGY GROSS&GUSTAVO ROSCOPIC EXAM IMHISTOCH 52567 SCALF LEI SCALF LEI EM/CYTCHM 5 1ST ANTIBODY STAIN PROCEDURE BX SKIN 64300 GRAVES GRAVES SUBCUTANE 5 LES LES OUS&/MUCO US MEMBRANE 1 LESION XTRNL ECG 28369 [facility] & 48 HR 5 [facility] RECORDING INC INC XTRNL ECG 93555 [facility] [place] 5 [facility] S RHYTHM P W/I&R UP TO 48 HRS EXTERNAL 66880 [facility] ECG 5 [facility] SCANNING INC INC ANALYSIS REPORT RADIOLOGI 53924 [facility] C EXAM 5 MEDICAL LALI CHEST 2 IMAGING VIEWS ASS FRONTAL&L ATERAL Encounters Encounter Start End Date Code Location Performer Type Date OFFICE 66864 [facility] OUTPATIEN 7 7 Y OF T [address] [place] [address] [facility] - [facility] 7 7 [facility] OUTPATIEN [facility] - 7 7 [facility]PATIEN [facility] - 7 7 [facility] 76815 [facility] OUT[facility] 7 7 PHYSICIAN T VISIT S GROUP 15 MINUTES OFFICE 46967 YOSHI BELLE OUTPSYCHIATRIC 7 7 T VISIT 25 MINUTES [facility] AUGUST - 7 7 [facility] OUTPATIEN [facility]UGUST - 7 7 [facility] OUTPATIEN [facility] OFFICE 59914 [facility] PETTE OUTPATIEN 7 7 PHYSICIAN T VISIT S GROUP 15 MINUTES OFFICE 79934 FAMILY ILIANA OUTPATIEN 6 6 CARE VÍCTOR T VISIT ASSOCIATE 15 S MINUTES [facility] ST - 6 6 NO OUTPATIEN MED [facility] 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 - 5 5 NO OUTPATIEN LAUREANO T OFFICE 58105 GRAVES GRAVES OUTPATIEN 5 5 LES LES T VISIT [address]ES [address] [facility] OUTPATIEN 5 5 NO THO T VISIT [address] - 5 5 NO OUTPATIEN MED CTR T POLYSTYRENE MOLDING MACHINE TENDER OFFICE 44[address] [facility] CONSULTAT 5 5 NO THO ION NEW/ESTAB PHYSICIAN PATIENT S 60 MIN HOSPITAL UNIVERSIT - 5 5 Y [facility] A[facility] - 5 5 [facility] OUTPATIEN [facility] - 5 [facility] 37951 GRAVES GRAVES OUTPATIEN 5 5 LES LES T NEW 30 MINUTES [facility]OS[facility] - [facility] 34390 [facility] 5 CARE R H T VISIT ASSOCIATE 15 S MINUTES
--- OUTSIDE RECORDS SUMMARY | 2016-12-13 23:43 | External Medical Summary Rpt | CCD ---
Demographics Preferred Language Qatari Marital Status Unknown Episcopal Affiliation Unknown Race Unknown Ethnic Group Unknown Author Author , YOSHI BELLE Address Unknown Phone Immunization No patient found.
--- OUTSIDE RECORDS SUMMARY | 2016-12-14 00:40 | External Medical Summary Rpt | CCD ---
Author Author , YOSHI Organization YOSHI Address Unknown Phone [email or web address] Care Team Providers Care Boiler Testing Technician Name Role Phone ATKINS TRA, ATKINS Unavailable [...] GRAVES LES, GRAVES Unavailable Unavailable LES [facility] Un[facility] Unavailable [facility], [facility] Unavailable Unavailable HOSPITAL P, [facility] HERFEL DONOVAN, HERFEL Unavailable Unavailable DONOVAN [facility], Unavailable Unavailable [facility] HURST LLUVIA, HURST LLUVIA Unavailable Unavailable HARPER MAR, HARPER Unavailable Unavailable MAR [facility] Unavailable Unavailable IM[facility], [facility] Un[facility], [facility] SMITH ROMINA, SMITH ROMINA [...] GAR YOLANDA VERENICE, YOLANDA Unavailable Unavailable VERENICE [facility], Unavailable Unavailable [facility] Unavailable Unavailable 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, Unavailable Unavailable [facility] DAVIL[facility] LAUREANO STUMP, STUMP Unavailable Unavailable [place] Unavailable Unavailable [facility], Unavailable Unavailable [facility] Unavailable Unavailable [facility], [facility] Unavailable Unavailable [facility] [place] [facility] TANYA ADDISON, TANYA ADDISON Unavailable Unavailable AARON BAR, AARON BAR Unavailable Unavailable Purpose Continuity of Care Document - 05-09-2012 through 2016 Problems Code Diagnosis DOS Provider Status Q211 ATRIAL 09-19-2016 GARRETT SEPTAL OF [facility] PHY [id number] BASAL CELL 05-28-2016 SCALF CARCINOMA SKIN OF OTHER PART OF TRUNK M2242 CHONDROMALA 05-27-2016 [facility] CONRADO PHYSICIANS PATELLAE GROUP LEFT KNEE [id number] DERANG POST 05-27-2016 [facility] HORN MED PHYSICIANS MENISC OLD GROUP TEAR/INJ LT KNEE [id number] UNS TEAR 05-27-2016 COMM[facility]ITY UNS ANESTH OF MENISCUS THE BLUE CURR INJ LT KNEE INIT ENC [id number] SPRAIN ANT 05-27-2016 [facility] CRUCIATE PHYSICIANS LIGAMENT LT GROUP KNEE INITIAL ENC I491 ATRIAL 05-17-2016 [facility] DEPOLARIZAT INC ION I493 VENTRICULAR 05-17-2016 [facility] DEPOLARIZAT INC ION R9431 ABNORMAL 05-17-2016 [facility] IOGRAM INC [id number] ENCOUNTER 05-17-2016 [facility] PREPROCEDUR INC AL EXAMINATION D06808 ENCOUNTER 05-08-2016 [facility] AL CARIOVASCUL AR EXAM S87137 ENCOUNTER 05-08-2016 [facility] P AL RESPIRATORY EXAM V05868 ENCOUNTER 05-08-2016 [facility] P AL LABORATORY EXAM Z720 TOBACCO USE 05-08-2016 [facility] [id number] COMPLEX 04-30-2016 [facility] TEAR MED PHYSICIANS MENISCUS GROUP CURR UNS KNEE SUBSQT D225 MELANOCYTIC 04-18-2016 BEL[facility] NEVI OF TRUNK D2261 MELANOCYTIC 04-18-2016 [facility] NEVI RIGHT UPPER LIMB INCL SHOULDER D2262 MELANOCYTIC 04-18-2016 [facility] NEVI LEFT UPPER LIMB INCL SHOULDER D2271 MELANOCYTIC 04-18-2016 [facility] NEVI RIGHT LOWER LIMB INCLUDING HIP D2272 MELANOCYTIC 04-18-2016 [facility] NEVI LEFT LOWER LIMB INCLUDING HIP L578 OTH SKN 04-18-2016 BLELE CHANGES D/T CHRN EXPS TO NONIONIZING RAD Z08 ENCOUNTER 04-18-2016 BELLE F/U EXAM AFTER CMPL TX MALIG NEOPLASM F39539 PERSONAL 04-18-2016 BELLE HISTORY OTHER MALIGNANT NEOPLASM SKIN E54597 DERANGEMNT 04-12-2016 [facility] MENISCUS INC OLD TEAR/INJ LT KNEE [id number] EFFUSION 04-12-2016 [place] [facility] M7122 SYNOVIAL 04-12-2016 [place] CYST [facility] POPLITEAL IMAGING ASS SPACE VAUGHN LEFT KNEE [id number] OTH TEAR 04-12-2016 [place] [facility] MENISCUS IM[facility] ASS CURR INJ LT KNEE INIT ENC V03610 PAIN IN 04-04-2016 [place] LEFT [facility]NEE [facility] M7989 OTHER 04-04-2016 [place] SPECIFIED MEDICAL SOFT TISSUE IMAGING ASS DISORDERS R002 PALPITATION 09-29-2015 [facility] S ASSOCIATES I471 SUPRAVENTRI 08-16-2015 ST CULAR NO TACHYCARDIA PHYSICIANS C4491 BASAL CELL 07-19-2015 SCALF LEI CARCINOMA OF SKIN, UNSPECIFIED D0439 CARCINOMA 07-19-2015 SC[facility] LEI IN SITU OF SKIN OF OTHER PARTS OF FACE F33075 SQUAMOUS 05-18-2015 [facility] LEI CELL CARCINOMA SKIN [...] LES MELANIN HYPERPIGMEN TATION 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 MED CTR UNSPECIFIED 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 [facility] Z8249 FAMILY HX 01-21-2015 ST ISCHEMIC NO HRT DZ OTH MED CTR DZ CIRC SYSTEM J189 PNEUMONIA 01-03-2015 [facility] UNSPECIFIED EMERGENCY ORGANISM PHYSICIANS 66425 SUPRAVENTRI 11-25-2014 ST CULAR NO PREMATURE PHYSICIANS BEATS 43190 OTHER 11-25-2014 ST PREMATURE NO BEATS PHYSICIANS 22777 OTHER 11-25-2014 ST SPECIFIED NO CARDIAC PHYSICIANS DYSRHYTHMIA S 2166 KARLO 10-27-2014 GRAVES LES NEOPLASM SKIN UPPER LIMB INCLUDING SHOULDER 40407 OTHER 10-27-2014 GRAVES LES CHRONIC DERMATITIS DUE TO SOLAR RADIATION 7020 ACTINIC 10-27-2014 GRAVES LES KERATOSIS V1083 PERSONAL 10-27-2014 GRAVES LES HISTORY OTHER MALIGNANT NEOPLASM SKIN V6549 OTHER 10-27-2014 GRAVES LES SPECIFIED COUNSELING V7260 LABORATORY 09-05-2014 ST EXAMINATION NO MED CTR 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 UNSPECIFIED ST 50178 BASAL CELL 07-27-2014 ATKINS TRA CARCINOMA SKIN TRUNK EXCEPT SCROTUM 25894 BASAL CELL 07-27-2014 ATKINS TRA CARCINOMA SKIN UPPER LIMB INCL SHOULD 4293 CARDIOMEGAL 07-18-2014 [facility] 7455 OSTIUM 07-18-2014 [facility] SERV TYPE ATRIAL [facility]OUND[facility] SEPTAL DEFECT 7851 PALPITATION 07-11-2014 [facility] 2165 BENIGN 06-23-2014 GRAVES LES NEOPLASM OF SKIN OF TRUNK EXCEPT SCROTUM 2167 BENIGN 06-23-2014 GRAVES LES NEOPLASM SKIN LOWER LIMB INCLUDING HIP 2168 BENIGN 06-23-2014 SCALF LEI NEOPLASM OF OTHER SPECIFIED SITES OF SKIN 2382 NEOPLASM OF 06-23-2014 SCALF LEI UNCERTAIN BEHAVIOR OF SKIN 6869 UNSPEC 06-23-2014 SCALF LEI LOCAL INFECTION SKIN&SUBCUT ANEOUS TISSUE 93031 CHEST PAIN 06-09-2014 [facility] P Medications Na ND Rx Da [...] OD 12 20 20 23 RT ON 17 17 96 -A 1 84 PH CE AR TA MA ME CY NO PH #5 EN 91 5- [...] 22:44 cyte mean corpusc ular v Absolut = 0.3 0.1-1.0 complet e 017 K/mm3 ed monocyt 22:44 e count [place] % = 3.5 % 1.7-9.3 complet 017 ed 22:44 Automat = 7.5 7.4-10. complet ed 017 fl 4 ed blood 22:44 platele t mean volume addison Blood = 276 142-424 complet platele 017 K/mm3 ed t count 22:44 Red = 4.93 4.6-6.2 complet blood 017 M/mm3 ed cell 22:44 count Automat = 12.6 11.5-17 complet ed 017 % .5 ed erythro 22:44 cyte distrib ution width Blood = 7.2 4.8-10. complet leukocy 017 K/MM3 8 ed andrew 22:44 count (number /volume ) Lipid profile (12-08-2016 22:44) Total = 166 < 200 complet cholest 017 mg/dL ed sheela 22:44 measure ment Serum = 41.0 40-60 complet or 017 MG/DL ed plasma 22:44 cholest sheela in HDL measu Serum = 90.8 0-130 complet or 017 mg/dL ed plasma 22:44 cholest sheela in LDL measu Serum = 171 30-200 complet or 017 mg/dL ed plasma 22:44 triglyc eride measure ment Serum = 34.2 0-40 complet or 017 ed plasma 22:44 cholest sheela in VLDL william Cardiac enzymes (12-08-2016 22:44) Serum = 0.9 0-4.0 complet or 017 U/L ed plasma 22:44 creatin e kinase MB (CK-M Serum = 1.1 0.0-3.6 complet or 017 ng/mL ed plasma 22:44 creatin e kinase MB measu Serum = 116 39-308 complet or 017 U/L ed plasma 22:44 creatin e kinase measure m Serum < 0.02 0.00-0. complet or 017 ng/mL 06 ed plasma 22:44 troponi n i.cardi ac measu Comprehensive metabolic panel (12-08-2016 22:44) Serum = 1.2 1.1-1.8 complet or 017 ed plasma 22:44 albumin /globul in mass ra Serum = 4.1 3.4-5.0 complet or 017 gm/dL ed plasma 22:44 albumin measure ment (mas Serum = 93 46-116 complet or 017 U/L ed plasma 22:44 alkalin e phospha tase addison Serum = 0.2 0.2-1.0 complet or 017 mg/dL ed plasma 22:44 total bilirub in measure m Serum = 14 7-18 complet or 017 mg/dL ed plasma 22:44 urea nitroge n measure men Serum = 9.0 8.5-10. complet or 017 mg/dL 1 ed plasma 22:44 calcium measure ment (mas Serum = 105 98-107 complet or 017 mmoL/L ed plasma 22:44 chlorid e measure ment (mo Carbon = 31 21.0-32 complet dioxide 017 mmoL/L .0 ed 22:44 measure ment Serum = 0.9 0.70-1. complet or 017 mg/dL 30 ed plasma 22:44 creatin ine measure ment ( Estimat = 92 50-200 complet ion of 017 ML/MIN ed creatin 22:44 ine renal clearan ce Estimat = 94 >60 complet ed 017 ML/MIN ed glomeru 22:44 lar filtrat ion rate (GF Comment: REFERENCE RANGE: >60 ML/MIN/1.73 SQUARE METERS Comment: If this patient is -Romanian, then multiply the Comment: result by 1.210. Serum = 3.5 1.3-3.2 complet globuli 017 gm/dL ed n 22:44 measure ment (mass/v olume) Serum = 102 74-106 complet or 017 mg/dL ed plasma 22:44 glucose measure ment (mas Serum = 4.0 3.5-5.1 complet potassi 017 mmoL/L ed um 22:44 measure ment Serum = 140 136-145 complet sodium 017 mmoL/L ed measure 22:44 ment Serum = 14 15-37 complet or 017 U/L ed plasma 22:44 asparta te aminotr ansfera ALT = 21 12-78 complet (SGPT) 017 U/L ed ser/jacquelyn 22:44 s Protein = 7.6 6.4-8.2 complet total 017 gm/dL ed ser/jacquelyn 22:44 s Procedures Procedure DOS Code Location Performer Comment INJECTION J2250 [facility] 7 Y OF Y OF [place] HCL PER I MED I MED 1 MG JOSÉ ANTONIO W OR C8925 [facility] W/O FLW 7 Y OF Y OF W/CNTRST [place] REAL TIME I MED I MED 2D; ACQ I&R ECHO 94998 [facility] TRANSESOP 7 Y OF HAG R-T [place] 2D W/PRB I PHY IMG ACQUISJ I&R DOP 14536 [facility] ECHOCARD 7 Y OF COLOR [place] FLOW I PHY VELOCITY MAPPING INJECTION J3010 [facility] [place] 7 Y OF Y OF CITRATE [place] 0.1 MG I MED I MED DOPPLER 72319 [facility] ECHOCARD 7 Y OF PULSE [place] WAVE I PHY W/SPECTRA L DISPLAY EXCISION 16294 YOSHI BELLE MAL 7 LESION TRUNK/ARM /LEG 2.1-3.0 CM REPAIR 89337 BELLE BELLE INTERMEDI 7 ATE S/A/T/E 2.6-7[place] [address] SCALF SCALF SURG 7 PATHOLOGY GROSS&GUSTAVO ROSCOPIC EXAM IMHISTOCH 25495 SC[facility] SCALF EM/CYTCHM 7 1ST ANTIBODY STAIN PROCEDURE ARTHROSCO 50606 [facility] PETTEY PY KNEE 7 PHYSICIAN W/MENISCU S GROUP S RPR MEDIAL/LA TERAL ARTHRS 95878 [facility] STUMP KNEE 7 PHYSICIAN ABRASION S GROUP ARTHRP/ML T DRLG/MICR OFX URNLS DIP 59955 [facility] STICK/TAB INC INC LET REAGENT AUTO MICROSCOP Y ANES 46482 [facility] OPEN/SURG 7 ANESTH OF THE ARTHROSCO BLUE PIC PROC KNEE JOINT NOS ECHO 56100 [facility] TTHRC R-T 7 [facility] 2D INC INC W/WOM-MOD E COMPL SPEC&COLR D ECG 58363 [facility] ROUTINE 7 [facility] ECG INC INC W/LEAST 12 LDS TRCG ONLY W/O I&R BASIC 01262 [facility] METABOLIC 7 [facility] PANEL INC INC CALCIUM TOTAL ECG 53407 [facility] ROUTINE 7 [facility] W/LEAST P 12 LDS I&R ONLY BLOOD 72106 [facility] COUNT 7 [facility] COMPLETE INC INC AUTO&AUTO DIFRNTL WBC RADIOLOGI 14953 [facility] C EXAM 7 [facility] CHEST 2 INC INC VIEWS FRONTAL&L ATERAL ECG 22150 [facility] ROUTINE [address] [facility] ECG INC INC W/LEAST 12 LDS TRCG ONLY W/O I&R COLLECTIO 96834 [facility] N VENOUS 7 [facility] BLOOD INC INC VENIPUNCT URE DESTRUCTI 34192 Y[facility] BELLE ON 7 PREMALIGN [place] 1ST [place] [address] SCALF SCALF SURG 7 PATHOLOGY GROSS&GUSTAVO ROSCOPIC EXAM IMHISTOCH 05900 SCALF SCALF EM/CYTCHM 7 1ST ANTIBODY STAIN PROCEDURE BX SKIN 30018 BELLE BELLE SUBCUTANE 7 OUS&/MUCO US MEMBRANE 1 LESION DESTRUCTI 00721 YOSHI BELLE ON 7 PREMALIGN ANT LESION 2-14 EA MRI ANY 09852 [facility] JT LOWER 7 MEDICAL MEDICAL EXTREM IMAGING IMAGING W/O ASS ASS CONTRAST MATRL RADIOLOGI 07824 [facility] C EXAM 7 MEM HOS[facility]OS[facility] KNEE INC INC COMPLETE 4/MORE VIEWS INTRACARD 74[address] [facility] IAC 6 NO THO ELECTROPH YSIOLOGIC PHYSICIAN 3D S MAPPING COMPRE 29912 [facility] ELECTROPH 6 NO THO YSIOL XM W/LEFT PHYSICIAN ATRIAL S PACNG/REC ANES 06071 [facility]I [facility] CARDIAC 6 A GROUP ELECTROPH PRACTICE YSIOL STDY W/RF ABLATION EPHYS 91353 [facility] EVAL 6 NO THO W/ABLATIO N PHYSICIAN SUPRAVENT S ARRHYTHMI A DESTRUCTI 28701 SCALF LEI SCALF LEI ON MAL 6 LESION F/E/E/N/L /M 0.6-1.0CM REPAIR 55627 SCALF LEI SCALF LEI INTERMEDI 6 ATE S/A/T/E 2.6-7.5 CM EXCISION 24372 SCALF LEI SCALF LEI MAL 6 LESION TRUNK/ARM /LEG 2.1-3[place]0 [place] [address] SCALF LEI SCALF LEI SURG 6 PATHOLOGY GROSS&GUSTAVO ROSCOPIC EXAM IMHISTOCH 35945 SCALF LEI SCALF LEI EM/CYTCHM 6 1ST ANTIBODY STAIN PROCEDURE INJ A9577 ST [address] GADOBENAT 6 NO SARABIA E MED CTR MED CTR DIMEGLUMI FLUE DUST LABORER ST FLUE DUST LABORER ST NE MULTIHANC E PER ML CARDIAC 56746 RADIOLOGY DAILY MRI W/WO 6 GAR CONTRAST ASSOCIATE & FURTHER S OF [facility] [place] [place] [address] ACTIVATED 6 NO SARABIA ECG LAUREANO LAUREANO RECORD MONITOR [address] [place] [address] [address] ISAURA ACTIVTD 6 NO CARLOS EDUARDO ECG DWNLD W/R&I PHYSICIAN </30 DAYS S SHVG SKIN 31187 GRAVES GRAVES LESION 1 6 LES LES TRUNK/ARM /LEG DIAM 0.6-1.0 CM BX SKIN 63386 GRAVES GRAVES SUBCUTANE 6 LES LES OUS&/MUCO US MEMBRANE 1 LESION IMHISTOCH 07147 SCALF LEI SCALF LEI EM/CYTCHM 6 1ST ANTIBODY STAIN PROCEDURE DESTRUCTI 88174 GRAVES GRAVES ON 6 LES LES PREMALIGN [place] 1ST [place] [address] SCALF LEI SCALF LEI SURG 6 PATHOLOGY GROSS&GUSTAVO ROSCOPIC EXAM ECG [address] [facility] ROUTINE 6 NO THO ECG W/LEAST PHYSICIAN 12 LDS S W/I&R INTRACARD 13438 [facility] IAC 6 NO THO ELECTROPH YSIOLOGIC PHYSICIAN 3D S MAPPING COMPRE 49131 [facility] ELECTROPH 6 NO THO YSIOL XM W/LEFT PHYSICIAN ATRIAL S PACNG/REC EPHYS 51807 [facility] EVAL 6 NO THO W/ABLATIO N PHYSICIAN SUPRAVENT S ARRHYTHMI A PROGRAMME 45376 [facility] D STIMJ & 6 NO THO PACG AFTER IV PHYSICIAN DRUG NFS S ANES 98365 ANESTHESI CELI ANURADHA CARDIAC 6 A GROUP ELECTROPH PRACTICE, YSIOL I STDY W/RF ABLATION XTRNL ECG 60910 [facility] 6 NO MAR CONTINUOU S RHYTHM PHYSICIAN W/I&R UP S TO [address] PEREYRA LLUVIA TTHRC R-T 6 NO 2D W/WOM-MOD PHYSICIAN E COMPL S SPEC&COLR D DESTRUCTI 48579 GRAVES GRAVES ON 5 LES LES PREMALIGN ANT LESION 2-14 EA DESTRUCTI 22986 GRAVES GRAVES ON 5 LES LES PREMALIGN ANT LESION 1ST ECG [address] ST AARON BAR ROUTINE 5 NO ECG MED CTR W/LEAST 12 LDS I&R ONLY HOSPITAL [address] [facility] DISCHARGE 5 [facility] MANAGEMEN PHYSICIAN T 30 S MIN/< SBSQ [address] CARE/DAY 25 PHYSICIAN MINUTES S ECG [address] MAGO MAR ROUTINE 5 NO ECG MED CTR W/LEAST 12 LDS I&R ONLY ECG [address]995 ST MAG[facility] MAR ROUTINE 5 NO ECG MED CTR W/LEAST 12 LDS I&R ONLY INITIAL [address] CARE/DAY 50 PHYSICIAN MINUTES S RADIOLOGI 66753 RADIOLOGY [facility] C 5 EXAMINATI ASSOCIATE ON CHEST S OF [facility] [place] FRONTAL ECG [address] [facility] ROUTINE 5 NO THO ECG W/LEAST PHYSICIAN 12 LDS S W/I&R INTRACARD 52582 [facility] IAC 5 NO ELECTROPH YSIOLOGIC PHYSICIAN 3D S MAPPING ANES 76404 INDEPENDE WELLS ADDISON CARDIAC 5 NT ELECTROPH ANESTHESI YSIOL OLOGIST STDY W/RF ABLATION COMPRE 69470 [facility] ELECTROPH 5 NO YSIOLOGIC PHYSICIAN ARRHYTHMI S A INDUCTION PROGRAMME [address] ST [address] D STIMJ & 5 NO NO PACG AFTER IV PHYSICIAN PHYSICIAN DRUG NFS S S INTRACARD 66[address] [facility] ECHOCARD 5 NO W/THER/DX PHYSICIAN IVNTJ S INCL IMG S&I COMPRE 01428 [facility] ELECTROPH 5 NO YSIOL XM W/LEFT PHYSICIAN ATRIAL S PACNG/REC ECG [address]1570 [facility] ROUTINE 5 NO THO ECG W/LEAST PHYSICIAN 12 LDS S W/I&R EXTERNAL [address] ECG [address] [facility] SCANNING LAUREANO LAUREANO ANALYSIS REPORT XTRNL ECG [address] & [address] [facility] RECORDING LAUREANO LAUREANO ECG [address] [facility] ROUTINE 5 NO THO ECG W/LEAST PHYSICIAN 12 LDS S W/I&R DESTRUCTI 51745 GRAVES GRAVES ON 5 LES LES PREMALIGN ANT LESION 15/> ECG [address]951 [facility] ROUTINE 5 NO THO ECG W/LEAST PHYSICIAN 12 LDS S W/I&R ANES 81635 INDEPENDE PARRISH CARDIAC 5 NT ELECTROPH ANESTHESI YSIOL OLOGIST STDY W/RF ABLATION INTRACARD 58260 [facility] IAC 5 NO THO ELECTROPH YSIOLOGIC PHYSICIAN 3D S MAPPING COMPRE 34314 [facility] ELECTROPH 5 NO THO YSIOL XM W/LEFT PHYSICIAN ATRIAL S PACNG/REC EPHYS 64921 [facility] EVAL 5 NO THO W/ABLATIO N PHYSICIAN SUPRAVENT S ARRHYTHMI A PROGRAMME 30069 [facility] D STIMJ & 5 NO THO PACG AFTER IV PHYSICIAN DRUG NFS S BLOOD [address] [facility] AUTO&AUTO FLUE DUST LABORER ST FLUE DUST LABORER ST DIFRNTL WBC BASIC [address] METABOLIC 5 NO NO PANEL MED CTR MED CTR CALCIUM FLUE DUST LABORER ST FLUE DUST LABORER ST TOTAL PROTHROMB [address] IN TIME 5 NO NO MED CTR MED CTR FLUE DUST LABORER ST FLUE DUST LABORER ST ECG [address] [facility] ROUTINE 5 NO THO ECG W/LEAST PHYSICIAN 12 LDS S W/I&R DESTRUCTI 91520 ATKINS ATKINS ON MAL 5 TRA TRA LESION TRUNK/ARM /LEG 3.1-4.0CM DESTRUCTI 05665 ATKINS ATKINS ON MAL 5 TRA TRA LESION TRUNK/ARM /LEG 1.1-2.0CM INJECTION A9579 [facility] 5 Y Y [facility] M BASED MR CONTRAST NOS ML CARDIAC 86689 [facility] ROMINA MRI FOR 5 MEDICAL VELOCITY SERV FLOW FOUNDATIO MAPPING N CARDIAC 66644 [facility] ROMINA MRI W/WO 5 MEDICAL CONTRAST SERV & FURTHER FOUNDATIO SEQ N ECHO 60098 FRANTZ GUERRERO TTHRC R-T 5 MEDICAL VERENICE 2D SERV W/WOM-MOD FOUNDATIO E COMPL N SPEC&COLR D ECG 02050 [facility] ROUTINE 5 [facility] ECG INC INC W/LEAST 12 LDS TRCG ONLY W/O I&R BIOPSY 47116 GRAVES GRAVES SKIN 5 LES LES SUBQ&/MUC OUS MEMBRANE EA ADDL LESN DESTRUCTI 25934 GRAVES GRAVES ON 5 LES LES PREMALIGN ANT LESION 2-14 EA DESTRUCTI 36713 GRAVES GRAVES ON 5 LES LES PREMALIGN [place] 1[place] [address] SCALF LEI SCALF LEI SURG 5 PATHOLOGY GROSS&GUSTAVO ROSCOPIC EXAM IMHISTOCH 35427 SCALF LEI SCALF LEI EM/CYTCHM 5 1ST ANTIBODY STAIN PROCEDURE BX SKIN 02398 GRAVES GRAVES SUBCUTANE 5 LES LES OUS&/MUCO US MEMBRANE 1 LESION XTRNL ECG 38419 [facility] & [address] [facility] RECORDING INC INC XTRNL ECG 43158 [facility] OLSON 5 [facility] S RHYTHM P W/I&R UP TO 48 HRS EXTERNAL 42643 [facility] ECG 5 [facility] SCANNING INC INC ANALYSIS REPORT RADIOLOGI 60331 [place] [facility] EXAM 5 MEDICAL LALI CHEST 2 IMAGING VIEWS ASS FRONTAL&L ATERAL Encounters Encounter Start End Date Code Location Performer Type Date OFFICE 02705 [facility] 7 7 Y OF T [address] UNIVERSIT - 7 7 Y OF OUTPATIEN [facility] - 7 7 [facility]PATI[facility] - 7 7 [facility]PATI[facility] - 7 7 [facility] 7 7 [facility] 80120 [facility] 7 7 PHYSICIAN T VISIT S GROUP 15 MINUTES OFFICE 43880 BELLE BELLE OUTPATI 7 7 T VISIT 25 MINUTES HOSPITAL [facility] - 7 7 [facility] OUTPATIEN [facility] T OFFICE 07618 [facility] 7 7 PHYSICIAN T VISIT S GROUP 15 MINUTES HOSPITAL AUGUST - 7 7 [facility] OUTPATIEN [facility] T OFFICE 94126 [facility] [place] OUTPATIEN 6 6 CARE VÍCTOR T VISIT ASSOCIATE [address] - 6 6 NO OUTPATIEN MED CTR T [facility] ST[facility] - 6 6 [facility] 75583 GRA[facility] GRAVES OUTPATIEN 6 6 LES LES T VISIT [address] [facility] 6 6 NO THO T VISIT 25 PHYSICIAN MINUTES S OFFICE 65981 [facility] GRAVES OUTPATIEN 5 5 LES LES T VISIT [address] - 5 5 NO INPATIENT MED CTR [facility] EMERGENCY 23338 [facility] DEPT 5 5 EMERGENCY DONOVAN VISIT HIGH PHYSICIAN SEVERITY& S THREAT FUN OFFICE 86149 [facility] 5 5 NO THO T VISIT [address] - 5 5 [facility] 12341 GRAVES GRAVES OUTPATIEN 5 5 LES LES T VISIT 25 MINUTES OFFICE 40307 [facility] 5 5 NO THO T VISIT [address] - 5 5 NO OUTPATIEN MED CTR T [facility] OFFICE 27626 [facility] CONSULTAT 5 5 NO THO ION NEW/ESTAB PHYSICIAN PATIENT S 60 MIN [facility] 5 [facility] [address] [facility] [id number] G[facility]ES GRA[facility]ES [facility]PATIEN 5 5 LES LES T [facility] 78112 [facility] R H T [facility]ISIT ASSOCIATE 15 S MINUTES
--- OUTSIDE RECORDS SUMMARY | 2016-12-14 00:40 | External Medical Summary Rpt | CCD ---
Author Author , YOSHI Organization YOSHI Address Unknown Phone [email or web address] [email or web address] Care Team Providers Care Electrical Machine Builder Name Role Phone ATKINS TRA, ATKINS Unavailable [...] Unavailable Unavailable INC, [facility] Unavailable Unavailable HOSPITAL P, [facility] HERFEL DONOVAN, HERFEL Unavailable Unavailable DONOVAN [facility], Unavailable Unavailable [facility] HURST LLUVIA, HURST LLUVIA Unavailable Unavailable HARPER MAR, HARPER Unavailable Unavailable MAR [facility] Unavailable Unavailable [facility], [facility] Un[facility] Un[facility], [facility] SMITH ROMINA, SMITH ROMINA [...] GAR YOLANDA VERENICE, YOLANDA Unavailable Unavailable VERENICE [facility], Unavailable Unavailable [facility] Unavailable Unavailable FLIGHT INFORMATION EXPEDITER ST, [facility] FLIGHT INFORMATION EXPEDITER [facility] Unavailable Unavailable PHYSICIANS, NO PHYSICIANS [facility], Unavailable Unavailable [facility] DAVILATH LAUREANO STUMP, STUMP Unavailable Unavailable [facility] Unavailable Unavailable [facility], Unavailable Unavailable [facility] Unavailable Unavailable [facility], [facility] Unavailable Unavailable [facility] TANYA ADDISON, TANYA ADDISON Unavailable Unavailable AARON BAR, AARON BAR Unavailable Unavailable Purpose Continuity of Care Document - 05-09-2012 through 2016 Problems Code Diagnosis DOS Provider Status Q211 ATRIAL 09-19-2016 SHOW LOW SEPTAL OF [facility] PHY [id number] BASAL CELL 05-28-2016 SCALF CARCINOMA SKIN OF OTHER PART OF TRUNK M2242 CHONDROMALA 05-27-2016 [facility] CONRADO PHYSICIANS PATELLAE GROUP LEFT KNEE [id number] DERANG POST 05-27-2016 [facility] HORN MED PHYSICIANS MENISC OLD GROUP TEAR/INJ LT KNEE [id number] UNS TEAR 05-27-2016 COMMUNITY UNS ANESTH OF MENISCUS THE BLUE CURR INJ LT KNEE INIT ENC [id number] SPRAIN ANT 05-27-2016 [facility] CRUCIATE PHYSICIANS LIGAMENT LT GROUP KNEE INITIAL ENC I491 ATRIAL 05-17-2016 [facility] DEPOLARIZAT INC ION I493 VENTRICULAR 05-17-2016 [facility] DEPOLARIZAT INC ION R9431 ABNORMAL 05-17-2016 [facility] IOGRAM INC B08227 ENCOUNTER 05-17-2016 [facility] FOR OTHER [facility] PREPROCEDUR INC AL EXAMINATION P39323 ENCOUNTER 05-08-2016 [facility] AL CARIOVASCUL AR EXAM K32912 ENCOUNTER 05-08-2016 [facility] P AL RESPIRATORY EXAM F98093 ENCOUNTER 05-08-2016 [facility] P AL LABORATORY EXAM Z720 TOBACCO USE 05-08-2016 [facility] [id number] COMPLEX 04-30-2016 [facility] TEAR MED PHYSICIANS MENISCUS GROUP CURR [...] F/U EXAM AFTER CMPL TX MALIG NEOPLASM E26926 PERSONAL 04-18-2016 BELLE HISTORY OTHER MALIGNANT NEOPLASM SKIN G87933 DERANGEMNT 04-12-2016 [facility] MED MEM HOSP MENISCUS INC OLD TEAR/INJ LT KNEE M78579 EFFUSION 04-12-2016 [place] LEFT [facility]NEE [facility] M7122 SYNOVIAL 04-12-2016 [place] CYST [facility]ICAL POPLITEAL IMAGING ASS SPACE VAUGHN LEFT KNEE [id number] OTH TEAR 04-12-2016 [place] MED [facility]ICAL MENISCUS IMAGING ASS CURR INJ LT KNEE INIT ENC F74375 PAIN IN 04-04-2016 [place] LEFT KNEE [facility]ICAL [facility] M7989 OTHER 04-04-2016 [place] SPECIFIED MEDICAL SOFT TISSUE IMAGING ASS DISORDERS R002 PALPITATION 09-29-2015 [facility] S ASSOCIATES I471 SUPRAVENTRI 08-16-2015 ST CULAR NO [facility]ACHY[facility]ARDIA PHYSICIANS C4491 BASAL CELL 07-19-2015 SCALF LEI CARCINOMA OF SKIN, UNSPECIFIED D0439 CARCINOMA 07-19-2015 SCALF LEI IN SITU OF SKIN OF OTHER PARTS OF FACE A83884 SQUAMOUS 05-18-2015 SCALF LEI CELL CARCINOMA SKIN [...] N OF HEART MED CTR UNSPECIFIED 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 NO OF [facility] Z8249 FAMILY HX 01-21-2015 ST ISCHEMIC NO HRT DZ OTH MED CTR DZ CIRC SYSTEM J189 PNEUMONIA 01-03-2015 [facility] UNSPECIFIED EMERGENCY ORGANISM PHYSICIANS 54951 SUPRAVENTRI 11-25-2014 ST CULAR NO PREMATURE PHYSICIANS BEATS 31822 OTHER 11-25-2014 ST PREMATURE NO BEATS PHYSICIANS 87311 OTHER 11-25-2014 ST SPECIFIED NO CARDIAC PHYSICIANS DYSRHYTHMIA S 2166 KARLO 10-27-2014 [facility] NEOPLASM SKIN UPPER LIMB INCLUDING SHOULDER 77376 OTHER 10-27-2014 [facility] CHRONIC DERMATITIS DUE TO SOLAR RADIATION 7020 ACTINIC 10-27-2014 [facility] KERATOSIS V1083 PERSONAL 10-27-2014 [facility] HISTORY OTHER MALIGNANT NEOPLASM SKIN V6549 OTHER 10-27-2014 [facility] SPECIFIED COUNSELING V7260 LABORATORY 09-05-2014 ST EXAMINATION NO MED CTR FLIGHT INFORMATION EXPEDITER UNSPECIFIED ST 14890 BASAL CELL 07-27-2014 ATKINS TRA CARCINOMA SKIN TRUNK EXCEPT SCROTUM 39678 BASAL CELL 07-27-2014 ATKINS TRA CARCINOMA SKIN UPPER LIMB INCL SHOULD 4293 CARDIOMEGAL 07-18-2014 [facility] 7455 OSTIUM 07-18-2014 [employer] MEDICAL SECUNDUM SERV TYPE ATRIAL FOUNDATION SEPTAL DEFECT 7851 PALPITATION 07-11-2014 [employer] [facility] [employer] [facility] S SERV [facility] 2165 BENIGN 06-23-2014 [facility] NEOPLASM OF SKIN OF TRUNK EXCEPT SCROTUM 2167 BENIGN 06-23-2014 [facility] NEOPLASM SKIN LOWER LIMB INCLUDING HIP 2168 BENIGN 06-23-2014 SCALF LEI NEOPLASM OF OTHER SPECIFIED SITES OF SKIN 2382 NEOPLASM OF 06-23-2014 SCALF LEI UNCERTAIN BEHAVIOR OF SKIN 6869 UNSPEC 06-23-2014 SCALF LEI LOCAL INFECTION SKIN&SUBCUT ANEOUS TISSUE 80192 CHEST PAIN 06-09-2014 [facility] CAR[facility] P Medications Na ND Rx Da Fi [...] 1 84 PH CE AR TA MA WI CY NO PH #5 EN 91 5- [...] 017 K/mm3 ed monocyt 22:44 e count Hamlin % = 3.5 % 1.7-9.3 complet 017 [...] SQUARE METERS Comment: If this patient is -Maldivian, then multiply the Comment: result by 1.210. [...] DOS Code Location Performer Comment INJECTION J2250 [facility] 7 Y OF Y OF [place] HCL PER I MED I MED 1 MG JOSÉ ANTONIO W OR C8925 [facility] W/O FLW 7 Y OF Y OF W/CNTRST [place] REAL TIME I MED I MED 2D; ACQ I&R ECHO 74782 [facility] TRANSESOP 7 Y OF HAG R-T [place] 2D W/PRB I PHY IMG ACQUISJ I&R DOP 64394 [facility] ECHOCARD 7 Y OF COLOR [place] FLOW I PHY VELOCITY MAPPING INJECTION J3010 [facility] FENTANYL 7 Y OF Y OF CITRATE [place] 0.1 MG I MED I MED DOPPLER 39133 [facility] ECHOCARD 7 Y OF PULSE [place] WAVE I PHY W/SPECTRA L DISPLAY EXCISION 28288 YOSHI BELLE MAL 7 LESION TRUNK/ARM /LEG 2.1-3.0 CM REPAIR 35624 BELLE BELLE INTERMEDI 7 ATE S/A/T/E 2.6-7[place] [address] SCALF SCALF SURG 7 PATHOLOGY GROSS&GUSTAVO ROSCOPIC EXAM IMHISTOCH 42391 SCALF SCALF EM/CYTCHM 7 1ST ANTIBODY STAIN PROCEDURE ARTHROSCO 88878 [facility] PETTEY PY KNEE 7 PHYSICIAN W/MENISCU S GROUP S RPR MEDIAL/LA TERAL ARTHRS 97952 [facility] STUMP KNEE 7 PHYSICIAN ABRASION S GROUP ARTHRP/ML T DRLG/MICR OFX URNLS DIP 57835 [facility] 7 MEM [facility]OS[facility] MEM [facility] STICK/TAB INC INC LET REAGENT AUTO MICROSCOP Y ANES 05898 [facility] OPEN/SURG 7 ANESTH OF THE ARTHROSCO BLUE PIC PROC KNEE JOINT NOS ECHO 01978 [facility] TTHRC R-T 7 [facility] 2D INC INC W/WOM-MOD E COMPL SPEC&COLR D ECG 32143 [facility] ROUTINE 7 [facility] ECG INC INC W/LEAST 12 LDS TRCG ONLY W/O I&R BASIC 07463 [facility] METABOLIC 7 [facility] PANEL INC INC CALCIUM TOTAL ECG 09735 [facility] ROUTINE 7 [facility] W/LEAST P 12 LDS I&R ONLY BLOOD 28913 [facility] COUNT 7 [facility] COMPLETE INC INC AUTO&AUTO DIFRNTL WBC RADIOLOGI 95725 [facility] C EXAM 7 [facility] CHEST 2 INC INC VIEWS FRONTAL&L ATERAL ECG 55836 [facility] ROUTINE 7 [facility] ECG INC INC W/LEAST 12 LDS TRCG ONLY W/O I&R COLLECTIO 57548 [facility] N VENOUS 7 [facility] BLOOD INC INC VENIPUNCT URE DESTRUCTI 83331 YOSHI BELLE ON 7 PREMALIGN [place] 1ST [place] [address] SCALF SCALF SURG 7 PATHOLOGY GROSS&GUSTAVO ROSCOPIC EXAM IMHISTOCH 65850 SCALF SCALF EM/CYTCHM 7 1ST ANTIBODY STAIN PROCEDURE BX SKIN 19578 BELLE BELLE SUBCUTANE 7 OUS&/MUCO US MEMBRANE 1 LESION DESTRUCTI 68209 YOSHI BELLE ON 7 PREMALIGN ANT LESION 2-14 EA MRI ANY 55673 [facility] JT LOWER 7 MEDICAL MEDICAL EXTREM IMAGING IMAGING W/O ASS ASS CONTRAST MATRL RADIOLOGI 09003 [facility] C EXAM 7 MEM HOSP MEM HOSP KNEE INC INC COMPLETE 4/MORE VIEWS INTRACARD [address]29 [facility] IAC 6 NO THO ELECTROPH YSIOLOGIC PHYSICIAN 3D S MAPPING COMPRE 43996 [facility] ELECTROPH 6 NO THO YSIOL XM W/LEFT PHYSICIAN ATRIAL S PACNG/REC ANES 05314 ANESTHESI [facility] CARDIAC 6 A GROUP ELECTROPH PRACTICE YSIOL STDY W/RF ABLATION EPHYS 57399 [facility] EVAL 6 NO THO W/ABLATIO N PHYSICIAN SUPRAVENT S ARRHYTHMI A DESTRUCTI 65572 SCALF LEI SCALF LEI ON MAL 6 LESION F/E/E/N/L /M 0.6-1.0CM REPAIR 61359 SCALF LEI SCALF LEI INTERMEDI 6 ATE S/A/T/E 2.6-7.5 CM EXCISION 99848 SCALF LEI SCALF LEI MAL 6 LESION TRUNK/ARM /LEG 2.1-3[place]0 [place] [address] SCALF LEI SCALF LEI SURG 6 PATHOLOGY GROSS&GUSTAVO ROSCOPIC EXAM IMHISTOCH 85399 SCALF LEI SCALF LEI EM/CYTCHM 6 1ST ANTIBODY STAIN PROCEDURE INJ A[address] GADOBENAT 6 NO SARABIA E MED CTR MED CTR DIMEGLUMI FLIGHT INFORMATION EXPEDITER ST FLIGHT INFORMATION EXPEDITER ST NE MULTIHANC E PER ML CARDIAC 33899 RADIOLOGY DAILY MRI W/WO 6 GAR CONTRAST ASSOCIATE & [facility]THER S OF [facility] [place] [address] ACTIVATED 6 NO SARABIA ECG LAUREANO LAUREANO RECORD MONITOR [address] [place] [address] [address] ISAURA ACTIVTD 6 NO CARLOS EDUARDO ECG DWNLD W/R&I PHYSICIAN </30 DAYS S SHVG SKIN 71494 GRAVES GRAVES LESION 1 6 LES LES TRUNK/ARM /LEG DIAM 0.6-1.0 CM BX SKIN 55413 GRAVES GRAVES SUBCUTANE 6 LES LES OUS&/MUCO US MEMBRANE 1 LESION IMHISTOCH 71962 SCALF LEI SCALF LEI EM/CYTCHM 6 1ST ANTIBODY STAIN PROCEDURE DESTRUCTI 96894 GRAVES GRAVES ON 6 LES LES PREMALIGN AN[place] L[place] 1ST [place] [address] SCALF LEI SCALF LEI SURG 6 PATHOLOGY GROSS&GUSTAVO ROSCOPIC EXAM ECG [address] [facility] ROUTINE 6 NO THO ECG W/LEAST PHYSICIAN 12 LDS S W/I&R INTRACARD 02383 [facility] IAC 6 NO THO ELECTROPH YSIOLOGIC PHYSICIAN 3D S MAPPING COMPRE 03238 [facility] ELECTROPH 6 ON THO YSIOL XM W/LEFT PHYSICIAN ATRIAL S PACNG/REC EPHYS 07266 [facility] EVAL 6 NO THO W/ABLATIO N PHYSICIAN SUPRAVENT S ARRHYTHMI A PROGRAMME 00717 [facility] D STIMJ & 6 NO THO PACG AFTER IV PHYSICIAN DRUG NFS S ANES 52078 ANESTHESI CELI ANURADHA CARDIAC 6 A GROUP ELECTROPH PRACTICE, YSIOL I STDY W/RF ABLATION XTRNL ECG 77674 HARPER 6 NO MAR CONTINUOU S RHYTHM PHYSICIAN W/I&R UP S TO [address] PEREYRA LLUVIA TTHRC R-T 6 NO 2D W/WOM-MOD PHYSICIAN E COMPL S SPEC&COLR D DESTRUCTI 97877 GRAVES GRAVES ON 5 LES LES PREMALIGN ANT LESION 2-14 EA DESTRUCTI 89159 GRAVES GRAVES ON 5 LES LES PREMALIGN ANT LESION 1ST ECG 6[address]25 ST AARON BAR ROUTINE 5 NO ECG MED CTR W/LEAST 12 LDS I&R ONLY HOSPITAL [address] [facility] DISCHARGE 5 [facility] MANAGEMEN PHYSICIAN T 30 S MIN/< SBSQ [address] CARE/DAY 25 PHYSICIAN MINUTES S ECG [address] [facility] MAGO MAR ROUTINE 5 NO ECG MED CTR W/LEAST 12 LDS I&R ONLY ECG [address]990 ST MAGO MAR ROUTINE 5 NO ECG MED CTR W/LEAST 12 LDS I&R ONLY INITIAL [address] CARE/DAY 50 PHYSICIAN MINUTES S RADIOLOGI 96609 RAD[facility]Y [facility] C 5 EXAMINATI ASSOCIATE ON CHEST S [facility] [place] FRONTAL ECG [address] [facility] ROUTINE 5 NO THO ECG W/LEAST PHYSICIAN 12 LDS S W/I&R INTRACARD 68531 [facility] IAC 5 NO ELECTROPH YSIOLOGIC PHYSICIAN 3D S MAPPING ANES 81720 [facility]DEP[facility] WE[facility] ADDISON CARDIAC 5 NT ELECTROPH ANESTHESI YSIOL OLOGIST STDY W/RF ABLATION COMPRE 93284 [facility] ELECTROPH 5 NO YSIOLOGIC PHYSICIAN ARRHYTHMI S A INDUCTION PROGRAMME [address] D STIMJ & 5 NO NO PACG AFTER IV PHYSICIAN PHYSICIAN DRUG NFS S S INTRACARD 36364 [facility] ECHOCARD 5 NO W/THER/DX PHYSICIAN IVNTJ S INCL IMG S&I COMPRE 08039 [facility] ELECTROPH 5 NO YSIOL XM W/LEFT PHYSICIAN ATRIAL S PACNG/REC ECG 76311 [facility] ROUTINE 5 NO THO ECG W/LEAST PHYSICIAN 12 LDS S W/I&R EXTERNAL [address] ECG 5 [facility] SCANNING LAUREANO LAUREANO ANALYSIS REPORT XTRNL ECG [address] & 48 HR 5 [facility] RECORDING LAUREANO LAUREANO ECG [address] [facility] ROUTINE 5 NO THO ECG W/LEAST PHYSICIAN 12 LDS S W/I&R DESTRUCTI 42216 GRAVES GRAVES ON 5 LES LES PREMALIGN ANT LESION 15/> ECG 96293 [facility] ROUTINE 5 NO THO ECG W/LEAST PHYSICIAN 12 LDS S W/I&R ANES 75781 INDEPENDE PARRISH CARDIAC 5 NT ELECTROPH ANESTHESI YSIOL OLOGIST STDY W/RF ABLATION INTRACARD 57303 [facility] IAC 5 NO THO ELECTROPH YSIOLOGIC PHYSICIAN 3D S MAPPING COMPRE 83385 [facility] ELECTROPH 5 NO THO YSIOL XM W/LEFT PHYSICIAN ATRIAL S PACNG/REC EPHYS 88853 [facility] EVAL 5 NO THO W/ABLATIO N PHYSICIAN SUPRAVENT S ARRHYTHMI A PROGRAMME 88387 [facility] D STIMJ & 5 NO THO PACG AFTER IV PHYSICIAN DRUG NFS S BLOOD [address] [facility] AUTO&AUTO FLIGHT INFORMATION EXPEDITER ST FLIGHT INFORMATION EXPEDITER ST DIFRNTL WBC BASIC [address] METABOLIC 5 NO NO PANEL MED CTR MED CTR CALCIUM FLIGHT INFORMATION EXPEDITER ST FLIGHT INFORMATION EXPEDITER ST TOTAL PROTHROMB [address] IN TIME 5 NO NO MED CTR MED CTR FLIGHT INFORMATION EXPEDITER ST FLIGHT INFORMATION EXPEDITER ST ECG [address]14 [facility] ROUTINE 5 NO THO ECG W/LEAST PHYSICIAN 12 LDS S W/I&R DESTRUCTI 12012 ATKINS ATKINS ON MAL 5 TRA TRA LESION TRUNK/ARM /LEG 3.1-4.0CM DESTRUCTI 86415 ATKINS ATKINS ON MAL 5 TRA TRA LESION TRUNK/ARM /LEG 1.1-2.0CM INJECTION A9579 [facility] 5 Y Y [facility] M BASED MR CONTRAST NOS ML CARDIAC 79039 [facility] ROMINA MRI FOR 5 MEDICAL VELOCITY SERV FLOW FOUNDATIO MAPPING N CARDIAC 60285 [facility] ROMINA MRI W/WO 5 MEDICAL CONTRAST SERV & FURTHER FOUNDATIO SEQ N ECHO 23873 FRANTZ GUERRERO TTHRC R-T 5 MEDICAL VERENICE 2D SERV W/WOM-MOD FOUNDATIO E COMPL N SPEC&COLR D ECG 06895 [facility] ROUTINE 5 [facility] ECG INC INC W/LEAST 12 LDS TRCG ONLY W/O I&R BIOPSY 93668 GRAVES GRAVES SKIN 5 LES LES SUBQ&/MUC OUS MEMBRANE EA ADDL LESN DESTRUCTI 42040 GRAVES GRAVES ON 5 LES LES PREMALIGN ANT LESION 2-14 EA DESTRUCTI 48138 GRAVES GRAVES ON 5 LES LES PREMALIGN [place] 1[place] [address] SCALF LEI SCALF LEI SURG 5 PATHOLOGY GROSS&GUSTAVO ROSCOPIC EXAM IMHISTOCH 34593 SCALF LEI SCALF LEI EM/CYTCHM 5 1ST ANTIBODY STAIN PROCEDURE BX SKIN 40141 GRAVES GRAVES SUBCUTANE 5 LES LES OUS&/MUCO US MEMBRANE 1 LESION XTRNL ECG 08393 [facility] & 48 HR 5 [facility] RECORDING INC INC XTRNL ECG 21611 [facility] OLSON 5 [facility] S RHYTHM P W/I&R UP TO 48 HRS EXTERNAL 25601 [facility] ECG 5 [facility] SCANNING INC INC ANALYSIS REPORT RADIOLOGI 31239 [place] [facility] EXAM 5 MEDICAL LALI CHEST 2 IMAGING VIEWS ASS FRONTAL&L ATERAL Encounters Encounter Start End Date Code Location Performer Type Date OFFICE 77025 [facility] OUTPATIEN 7 7 Y OF T [address] UNIVERSIT - 7 7 Y OF OUTPATIEN [facility] - 7 7 [facility] 7 7 [facility] 7 7 [facility] - 7 7 [facility] 25342 [facility] 7 PHYSICIAN T VISIT S GROUP 15 MINUTES OFFICE 34933 BEL[facility]LE OUTPATI 7 7 T VISIT 25 MINUTES HOSPITAL [facility] - 7 7 [facility] OUTPATIEN [facility] T OFFICE 50911 [facility] PHYSICIAN T VISIT S GROUP 15 MINUTES HOSPITAL [facility] - 7 7 [facility] OUTPATIEN [facility] T OFFICE 50449 [facility] OUTPATIEN 6 6 CARE VÍCTOR T VISIT ASSOCIATE [address] - 6 6 NO OUTPATIEN MED CTR T [facility] 78223 [facility] OUTPATIEN 6 6 LES LES T VISIT [address] [facility] 6 6 NO THO T VISIT 25 PHYSICIAN MINUTES S OFFICE 75224 [facility] OUTPATIEN 5 5 LES LES T VISIT [address] - 5 5 NO INPATIENT MED CTR [facility] EMERGENCY 83268 [facility] DEPT 5 5 EMERGENCY DONOVAN VISIT HIGH PHYSICIAN SEVERITY& S THREAT FUN OFFICE 22405 [facility] 5 5 NO THO T VISIT [address] [facility] 22593 [facility] OUTPATIEN 5 5 LES LES T VISIT 25 MINUTES OFFICE 85895 [facility] 5 5 NO THO T VISIT [address] - 5 5 NO OUTPATIEN MED CTR T [facility] OFFICE 19789 [facility] CONS[facility] 5 5 NO THO ION NEW/ESTAB PHYSICIAN PATIENT S 60 MIN [facility]OSPITAL [facility] - [facility] 17625 GRA[facility]ES GRAVES OUTPATIEN 5 5 LES LES T NEW 30 MINUTES [facility]OSPITAL [facility] 5 5 [facility] 29944 [facility] 5 5 [facility] R H T VISIT ASSOCIATE 15 S MINUTES
--- OUTSIDE RECORDS SUMMARY | 2016-12-14 00:42 | External Medical Summary Rpt | CCD ---
Author Author , YOSHI Organization YOSHI Address Unknown Phone [email or web address] Providers Care [facility]fusion Name Role Phone ATKINS TRA, ATKINS Unavailable Unavailable TRA ATKINS TRA, ATKINS Unavailable Unavailable TRA BESSON, BESSON Unavailable Unavailable BESSON ROMINA, BESSON Unavailable Unavailable ROMINA BELLE, BELLE Unavailable Unavailable BELLE, BELLE Unavailable Unavailable BURGER, BURGER Unavailable Unavailable FROY, FROY Unavailable Unavailable [facility], Unavailable Unavailable [facility] Unavailable Unavailable [facility] Unavailable Unavailable PHYSICIANS, [facility] ILIANA RNEEE, ILIANA Unavailable Unavailable VÍCTOR FAY LALI, Unavailable Unavailable FAY LALI PEREYRA LLUVIA, PEREYRA LLUVIA Unavailable Unavailable CELI ANURADHA, CELI ANURADHA Unavailable Unavailable [facility], [facility] GRAVES LES, GRAVES Unavailable Unavailable LES GRAVES LES, GRAVES Unavailable Unavailable LES [facility] Un[facility] Unavailable INC, [facility] Unavailable Unavailable HOSPITAL P, [facility] HERFEL DONOVAN, HERFEL Unavailable Unavailable DONOVAN [facility], Unavailable Unavailable [facility] HURST LLUVIA, HURST LLUVIA Unavailable Unavailable HARPER MAR, HARPER Unavailable Unavailable MAR [facility] Un[facility] Unavailable [facility], [facility] [place] [...] YOLANDA VERENICE, YOLANDA Unavailable Unavailable VERENICE [facility], Unavailable Unavailable [facility] Unavailable Unavailable PROFESSIONAL PROGRAMMER ANALYST ST, [facility] PROFESSIONAL PROGRAMMER ANALYST ST ST NO Unavailable Unavailable PHYSICIANS, NO [facility], Unavailable Unavailable [facility] STUMP, STUMP Unavailable Unavailable [place] Unavailable Unavailable [facility], Unavailable Unavailable [facility] Unavailable Unavailable [facility] Unavailable Unavailable [facility], [facility] ADDISON, WELLS ADDISON Unavailable Unavailable AARON BAR, AARON BAR Unavailable Unavailable Purpose Continuity of Care Document - 05-18-2014 through 2016 Problems Code Diagnosis DOS Provider Status Q211 ATRIAL 09-19-2016 [facility] PHY [id number] BASAL CELL 05-28-2016 SCALF CARCINOMA SKIN OF OTHER PART OF TRUNK M2242 CHONDROMALA 05-27-2016 [facility] CONRADO PHYSICIANS PATELLAE GROUP LEFT KNEE [id number] DERANG POST 05-27-2016 [facility] HORN MED PHYSICIANS MENISC OLD GROUP TEAR/INJ LT KNEE [id number] UNS TEAR 05-27-2016 [facility] UNS ANESTH OF MENISCUS [facility] CURR INJ LT KNEE INIT ENC [id number] SPRAIN ANT 05-27-2016 [facility] CRUCIATE PHYSICIANS LIGAMENT LT GROUP KNEE INITIAL ENC I491 ATRIAL 05-17-2016 [facility] DEPOLARIZAT INC ION I493 VENTRICULAR 05-17-2016 [facility] DEPOLARIZAT INC ION R9431 ABNORMAL 05-17-2016 [facility]ARD [facility] IOGRAM INC [id number] ENCOUNTER 05-17-2016 [facility] FOR OTHER [facility] PREPROCEDUR INC AL EXAMINATION S10141 ENCOUNTER 05-08-[address] [facility] AL CARIOVASCUL AR EXAM [id number] ENCOUNTER 05-08-[address] [facility] P AL RESPIRATORY EXAM A67223 ENCOUNTER 05-08-[address] [facility] P AL LABORATORY EXAM Z720 TOBACCO USE 05-08-2016 [facility] [id number] COMPLEX 04-30-2016 [facility] TEAR MED PHYSICIANS MENISCUS GROUP [...] F/U EXAM AFTER CMPL TX MALIG NEOPLASM C81634 PERSONAL 04-18-2016 BELLE HISTORY OTHER MALIGNANT NEOPLASM SKIN G41078 DERANGEMNT 04-12-2016 [facility] UNS MED [facility] MENISCUS INC OLD TEAR/INJ LT KNEE Q89116 EFFUSION 04-12-2016 [facility] [place] LEFT [facility]NEE [facility] M7122 SYNOVIAL 04-12-2016 [facility] [place] CYST MEDICAL POPLITEAL IMAGING ASS SPACE VAUGHN LEFT KNEE [id number] OTH TEAR 04-12-2016 [facility] [place] MED [facility]ICAL MENISCUS IMAGING ASS CURR INJ LT KNEE INIT ENC P14769 PAIN IN 04-04-2016 [facility] [place] LEFT KNEE [facility] M7989 OTHER 04-04-2016 [facility] [place] SPECIFIED MEDICAL SOFT TISSUE IMAGING ASS DISORDERS R002 PALPITATION 09-29-2015 [facility] S [facility]OCIATES I471 SUPRAVENTRI 08-16-2015 ST CULAR NO TACHYCARDIA PHYSICIANS C4491 BASAL CELL 07-19-2015 SCALF LEI CARCINOMA OF SKIN, UNSPECIFIED D0439 CARCINOMA 07-19-2015 SCAL[facility] LEI IN SITU OF SKIN OF OTHER PARTS OF FACE V54258 SQUAMOUS 05-18-2015 SCALF LEI CELL CARCINOMA SKIN [...] N OF HEART MED CTR UNSPECIFIED Z7982 USP 01-21-2015 CURRENT USE NO OF [facility] Z8249 FAMILY HX 01-21-2015 ST ISCHEMIC NO HRT DZ OTH MED CTR DZ CIRC SYSTEM J189 PNEUMONIA 01-03-2015 [facility] UNSPECIFIED EMERGENCY ORGANISM PHYSICIANS 27773 SUPRAVENTRI 11-25-2014 ST CULAR NO PREMATURE PHYSICIANS BEATS 93794 OTHER 11-25-2014 ST PREMATURE NO BEATS PHYSICIANS 10519 OTHER 11-25-2014 ST SPECIFIED NO CARDIAC PHYSICIANS DYSRHYTHMIA S 2166 KARLO 10-27-2014 GRAVES LES NEOPLASM SKIN UPPER LIMB INCLUDING SHOULDER 37043 OTHER 10-27-2014 GRAVES LES CHRONIC DERMATITIS DUE TO SOLAR RADIATION 7020 ACTINIC 10-27-2014 GRAVES LES KERATOSIS V1083 PERSONAL 10-27-2014 GRAVES LES HISTORY OTHER MALIGNANT NEOPLASM SKIN V6549 OTHER 10-27-2014 GRAVES LES SPECIFIED COUNSELING V7260 LABORATORY 09-05-2014 ST EXAMINATION NO MED CTR PROFESSIONAL PROGRAMMER ANALYST UNSPECIFIED ST 19992 BASAL CELL 07-27-2014 ATKINS TRA CARCINOMA SKIN TRUNK EXCEPT SCROTUM 12826 BASAL CELL 07-27-2014 ATKINS TRA CARCINOMA SKIN UPPER LIMB INCL SHOULD 4293 CARDIOMEGAL 07-18-2014 [facility] 7455 OSTIUM 07-18-2014 [facility] MEDICAL SECUNDUM SERV TYPE ATRIAL FOUNDATION SEPTAL DEFECT 7851 PALPITATION 07-11-2014 [facility] 2165 BENIGN 06-23-2014 GRAVES LES NEOPLASM OF SKIN OF TRUNK EXCEPT SCROTUM 2167 BENIGN 06-23-2014 GRAVES LES NEOPLASM SKIN LOWER LIMB INCLUDING HIP 2168 BENIGN 06-23-2014 SCALF LEI NEOPLASM OF OTHER SPECIFIED SITES OF SKIN 2382 NEOPLASM OF 06-23-2014 SCALF LEI UNCERTAIN BEHAVIOR OF SKIN 6869 UNSPEC 06-23-2014 SCALF LEI LOCAL INFECTION SKIN&SUBCUT ANEOUS TISSUE 46052 CHEST PAIN 06-09-2014 [facility] P Medications Na ND Rx Da [...] 1 84 PH CE AR TA MA VT CY NO PH #5 EN 91 5- 32 5 Procedures Procedure DOS Code Location Performer Comment INJECTION J3010 [facility] FENTANYL 7 Y OF Y OF CITRATE [place] 0.1 MG I MED I MED DOPPLER 94848 CARLO BOYCE ECHOCARD 7 Y OF PULSE [place] WAVE I PHY W/SPECTRA L DISPLAY INJECTION J2250 [facility] 7 Y OF Y OF MIDAZOLAM [place] HCL PER I MED I MED 1 MG JOSÉ ANTONIO W OR C8925 [facility] W/O FLW 7 Y OF Y OF W/CNTRST [place] REAL TIME I MED I MED 2D; ACQ I&R ECHO 89428 [facility] MCALLENJARED BOYCE TRANSESOP 7 Y OF HAG R-T [place] 2D W/PRB I PHY IMG ACQUISJ I&R DOP 27656 [facility] E[facility] 7 Y OF COLOR [place] FLOW I PHY VELOCITY MAPPING EXCISION 83727 YOSHI BELLE MAL 7 LESION TRUNK/ARM /LEG 2.1-[place] [address] SCALF SCALF SURG 7 PATHOLOGY GROSS&GUSTAVO ROSCOPIC EXAM IMHISTOCH 25210 SCALF SCALF EM/CYTCHM 7 1ST ANTIBODY STAIN PROCEDURE REPAIR 89034 YOSHI BELLE INTERMEDI 7 ATE S/A/T/E 2.6-7.5 CM ARTHROSCO 95702 [facility] PETTEY PY KNEE 7 PHYSICIAN W/MENISCU S GROUP S RPR MEDIAL/LA TERAL ARTHRS 12750 [facility] STUMP KNEE 7 PHYSICIAN ABRASION S GROUP ARTHRP/ML T DRLG/MICR OFX URNLS DIP 32213 [facility] STICK/TAB INC INC LET REAGENT AUTO MICROSCOP Y ANES 37256 [facility] RED OPEN/SURG 7 ANESTH OF THE ARTHROSCO BLUE PIC PROC KNEE JOINT NOS ECHO 98218 [facility] TTHRC R-T 7 [facility] 2D INC INC W/WOM-MOD E COMPL SPEC&COLR D ECG 62754 [facility] ROUTINE 7 [facility] ECG INC INC W/LEAST 12 LDS TRCG ONLY W/O I&R ECG 20529 [facility] ROUTINE 7 [facility] W/LEAST P 12 LDS I&R ONLY BLOOD 99987 [facility] COUNT 7 [facility] COMPLETE INC INC AUTO&AUTO DIFRNTL WBC RADIOLOGI 22452 [facility] C EXAM 7 [facility] CHEST 2 INC INC VIEWS FRONTAL&L ATERAL BASIC 91792 [facility] SALGADOON METABOLIC 7 [facility] PANEL INC INC CALCIUM TOTAL COLLECTIO 97509 [facility] N VENOUS 7 [facility] BLOOD INC INC VENIPUNCT URE ECG 24261 [facility] ROUTINE 7 [facility] ECG INC INC W/LEAST 12 LDS TRCG ONLY W/O I&R DESTRUCTI 03167 BELLE BELLE ON 7 PREMALIGN [place] LES[place] 1ST [place] [address] SCALF SCALF SURG 7 PATHOLOGY GROSS&GUSTAVO ROSCOPIC EXAM IMHISTOCH 04959 SCALF SCALF EM/CYTCHM 7 1ST ANTIBODY STAIN PROCEDURE DESTRUCTI 44549 BELLE BELLE ON 7 PREMALIGN ANT LESION 2-14 EA BX SKIN 52155 BELLE BELLE SUBCUTANE 7 OUS&/MUCO US MEMBRANE 1 LESION MRI ANY 44980 [facility] JT LOWER 7 MEDICAL MEDICAL EXTREM IMAGING IMAGING W/O ASS ASS CONTRAST MATRL RADIOLOGI 52149 [facility] C EXAM 7 [facility] KNEE INC INC COMPLETE 4/MORE VIEWS INTRACARD 79224 ST [facility] IAC 6 NO THO ELECTROPH YSIOLOGIC PHYSICIAN 3D S MAPPING COMPRE 27167 [facility] ELECTROPH 6 NO THO YSIOL XM W/LEFT PHYSICIAN ATRIAL S PACNG/REC ANES 59529 ANESTHESI [facility] [facility] CARDIAC 6 A GROUP ELECTROPH PRACTICE YSIOL STDY W/RF ABLATION EPHYS 03483 ST [facility] EVAL 6 NO THO W/ABLATIO N PHYSICIAN SUPRAVENT S ARRHYTHMI A DESTRUCTI 44043 SCALF LEI SCALF LEI ON MAL 6 LESION F/E/E/N/L /M 0.6-1.0CM EXCISION 81768 SCALF LEI SCALF LEI MAL 6 LESION TRUNK/ARM /LEG 2.1-[place] [address] SCALF LEI SCALF LEI SURG 6 PATHOLOGY GROSS&GUSTAVO ROSCOPIC EXAM IMHISTOCH 70006 SCALF LEI SCALF LEI EM/CYTCHM 6 1ST ANTIBODY STAIN PROCEDURE REPAIR 15832 SCALF LEI SCALF LEI INTERMEDI 6 ATE S/A/T/E 2.6-7.[address] GADOBENAT 6 NO NO E MED CTR MED CTR DIMEGLUMI PROFESSIONAL PROGRAMMER ANALYST ST PROFESSIONAL PROGRAMMER ANALYST ST NE MULTIHANC E PER ML CARDIAC 55345 RADIOLOGY [facility] MRI W/WO 6 GAR CONTRAST ASSOCIATE & FURTHER S OF [facility] [place] [address] ACTIVATED 6 NO NO ECG LAUREANO LAUREANO RECORD MONITOR 30 [place] [address] [address] ISAURA ACTIVTD 6 NO CARLOS EDUARDO ECG DWNLD W/R&I PHYSICIAN </30 DAYS S SHVG SKIN 28749 GRAVES GRAVES LESION 1 6 LES LES TRUNK/ARM /LEG DIAM 0.6-1.0 CM BX SKIN 37913 GRAVES GRAVES SUBCUTANE 6 LES LES OUS&/MUCO US MEMBRANE 1 LESION IMHISTOCH 39652 SCALF LEI SCALF LEI EM/CYTCHM 6 1ST ANTIBODY STAIN PROCEDURE DESTRUCTI 62941 GRAVES GRAVES ON 6 LES LES PREMALIGN AN[place] LESION 1ST [place] [address] SCALF LEI SCALF LEI SURG 6 PATHOLOGY GROSS&GUSTAVO ROSCOPIC EXAM ECG [address] [facility] ROUTINE 6 NO THO ECG W/LEAST PHYSICIAN 12 LDS S W/I&R INTRACARD 60070 [facility] IAC 6 NO THO ELECTROPH YSIOLOGIC PHYSICIAN 3D S MAPPING COMPRE 27646 [facility] ELECTROPH 6 NO THO YSIOL XM W/LEFT PHYSICIAN ATRIAL S PACNG/REC EPHYS 93007 [facility] EVAL 6 NO THO W/ABLATIO N PHYSICIAN SUPRAVENT S ARRHYTHMI A PROGRAMME 14510 ST [facility] D STIMJ & 6 NO O PACG AFTER IV PHYSICIAN DRUG NFS S ANES 34838 ANESTHESI CELI ANURADHA CARDIAC 6 A GROUP ELECTROPH PRACTICE, YSIOL I STDY W/RF ABLATION XTRNL ECG [address]26 ST HARPER 6 NO MAR CONTINUOU S RHYTHM PHYSICIAN W/I&R UP S TO [address] PEREYRA LLUVIA TTHRC R-T 6 NO 2D W/WOM-MOD PHYSICIAN E COMPL S SPEC&COLR D DESTRUCTI 32561 GRAVES GRAVES ON 5 LES LES PREMALIGN ANT LESION 1ST DESTRUCTI 89122 GRAVES GRAVES ON 5 LES LES PREMALIGN ANT LESION 2-14 [facility] [address] [facility]OY DISCHARGE 5 NO THO DAY MANAGEMEN PHYSICIAN T 30 S MIN/< ECG 98232 ST AARON BAR ROUTINE 5 NO ECG MED CTR W/LEAST 12 LDS I&R ONLY ECG [address] ST MAGO MAR ROUTINE 5 NO ECG MED CTR W/LEAST 12 LDS I&R ONLY SBSQ [address] CARE/DAY 25 PHYSICIAN MINUTES S ECG [address] [facility] MAGO MAR ROUTINE 5 NO ECG MED CTR W/LEAST 12 LDS I&R ONLY INITIAL [address] CARE/DAY 50 PHYSICIAN MINUTES S RADIOLOGI 02424 RADIOLOGY HURST LLUVIA C 5 EXAMINATI ASSOCIATE ON CHEST S [facility] [place] FRONTAL ECG [address] [facility] ROUTINE 5 NO THO ECG W/LEAST PHYSICIAN 12 LDS S W/I&R ANES 14714 INDEPENDE WELLS ADDISON CARDIAC 5 NT ELECTROPH ANESTHESI YSIOL OLOGIST STDY W/RF ABLATION INTRACARD 35634 ST [facility] IAC 5 NO ELECTROPH YSIOLOGIC PHYSICIAN 3D S MAPPING PROGRAMME [address] ST [address] D STIMJ & 5 NO NO PACG AFTER IV PHYSICIAN PHYSICIAN DRUG NFS S S INTRACARD [address] [facility] ECHOCARD 5 NO W/THER/DX PHYSICIAN IVNTJ S INCL IMG S&I COMPRE 09150 [facility] ELECTROPH 5 NO YSIOL XM W/LEFT PHYSICIAN ATRIAL S PACNG/REC COMPRE 79316 [facility] ELECTROPH 5 NO YSIOLOGIC PHYSICIAN ARRHYTHMI S A INDUCTION ECG [address] [facility] FR[facility] ROUTINE 5 NO THO ECG W/LEAST PHYSICIAN 12 LDS S W/I&R EXTERNAL [address] [facility] ECG 5 [facility] SCANNING LAUREANO LAUREANO ANALYSIS REPORT XTRNL ECG [address] & 48 HR 5 [facility] RECORDING LAUREANO LAUREANO ECG [address] [facility] ROUTINE 5 NO THO ECG W/LEAST PHYSICIAN 12 LDS S W/I&R DESTRUCTI 49663 GRAVES GRAVES ON 5 LES LES PREMALIGN ANT LESION 15/> ECG [address]368 ST FRYO ROUTINE 5 NO THO ECG W/LEAST PHYSICIAN 12 LDS S W/I&R INTRACARD 86615 [facility] IAC 5 NO THO ELECTROPH YSIOLOGIC PHYSICIAN 3D S MAPPING COMPRE 79158 [facility] ELECTROPH 5 NO THO YSIOL XM W/LEFT PHYSICIAN ATRIAL S PACNG/REC EPHYS 78395 [facility] EVAL 5 NO THO W/ABLATIO N PHYSICIAN SUPRAVENT S ARRHYTHMI A PROGRAMME 35625 ST FROY D STIMJ & 5 NO THO PACG AFTER IV PHYSICIAN DRUG NFS S ANES 44462 INDEPENDE PARRISH CARDIAC 5 NT ELECTROPH ANESTHESI YSIOL OLOGIST STDY W/RF ABLATION BLOOD [address] COUNT 5 NO NO COMPLETE MED CTR MED CTR AUTO&AUTO PROFESSIONAL PROGRAMMER ANALYST ST PROFESSIONAL PROGRAMMER ANALYST ST DIFRNTL WBC BASIC [address] METABOLIC 5 NO NO PANEL MED CTR MED CTR CALCIUM PROFESSIONAL PROGRAMMER ANALYST ST PROFESSIONAL PROGRAMMER ANALYST ST TOTAL PROTHROMB [address] IN TIME 5 NO NO MED CTR MED CTR PROFESSIONAL PROGRAMMER ANALYST ST PROFESSIONAL PROGRAMMER ANALYST ST ECG 94278 [facility] ROUTINE 5 NO THO ECG W/LEAST PHYSICIAN 12 LDS S W/I&R DESTRUCTI 35718 ATKINS ATKINS ON MAL 5 TRA TRA LESION TRUNK/ARM /LEG 3.1-4.0CM DESTRUCTI 91777 ATKINS ATKINS ON MAL 5 TRA TRA LESION TRUNK/ARM /LEG 1.1-2.0CM CARDIAC 38548 [facility] MRI FOR 5 MEDICAL VELOCITY SERV FLOW FOUNDATIO MAPPING N CARDIAC 30493 [facility] MRI W/WO 5 MEDICAL CONTRAST SERV & FURTHER FOUNDATIO SEQ N INJECTION A9579 [facility] 5 Y Y [facility] M BASED MR CONTRAST NOS ML ECHO 52570 FRANTZ GUERRERO TTHRC R-T 5 MEDICAL VERENICE 2D SERV W/WOM-MOD FOUNDATIO E COMPL N SPEC&COLR D ECG 21597 [facility] ROUTINE 5 [facility] ECG INC INC W/LEAST 12 LDS TRCG ONLY W/O I&R BIOPSY 80937 GRAVES GRAVES SKIN 5 LES LES SUBQ&/MUC OUS MEMBRANE EA ADDL LESN DESTRUCTI 12235 GRAVES GRAVES ON 5 LES LES PREMALIGN ANT LESION 2-14 EA DESTRUCTI 88923 GRAVES GRAVES ON 5 LES LES PREMALIGN [place] 1[place] [address] SCALF LEI SCALF LEI SURG 5 PATHOLOGY GROSS&GUSTAVO ROSCOPIC EXAM IMHISTOCH 14380 SCALF LEI SCALF LEI EM/CYTCHM 5 1ST ANTIBODY STAIN PROCEDURE BX SKIN 95696 GRAVES GRAVES SUBCUTANE 5 LES LES OUS&/MUCO US MEMBRANE 1 LESION XTRNL ECG 20536 [facility] & 48 HR 5 [facility] RECORDING INC INC XTRNL ECG 95750 [facility] [place] 5 [facility] S RHYTHM P W/I&R UP TO 48 HRS EXTERNAL 43576 [facility] ECG 5 [facility] SCANNING INC INC ANALYSIS REPORT RADIOLOGI 98801 [facility] C EXAM 5 MEDICAL LALI CHEST 2 IMAGING VIEWS ASS FRONTAL&L ATERAL Encounters Encounter Start End Date Code Location Performer Type Date OFFICE 38352 [facility]LE OUTPATIEN 7 7 Y OF T [address] [place] [address] [facility] - 7 [facility] OUTPATIEN [facility] - 7 7 [facility] - 7 [facility] PHYSICIAN T VISIT S GROUP 15 MINUTES OFFICE 32456 [facility]HI BELLE [facility] 7 T VISIT 25 MINUTES [facility] - 7 7 [facility] OUTPATIEN [facility] - 7 7 [facility] OUTPATIEN [facility] OFFICE 22008 [facility] PETTE OUTPATIEN 7 7 PHYSICIAN T VISIT S GROUP 15 MINUTES OFFICE 67011 FAMILY ILIANA OUTPATIEN 6 6 CARE VÍCTOR T VISIT ASSOCIATE 15 S MINUTES [facility] - 6 6 NO OUTPATIEN MED [facility] T [facility] ST. - 6 6 NO OUTPSYCHIATRICEN LAUREANO T OFFICE 31654 GRAVES GRAVES OUTPATIEN 6 6 LES LES T VISIT [address]ES [address] [facility] OUTPATIEN 6 6 NO THO T VISIT 25 PHYSICIAN MINUTES S OFFICE 18295 GRAVES GRAVES OUTPATIEN 5 5 LES LES T VISIT [address] - 5 5 NO INPATIENT MED CTR PROFESSIONAL PROGRAMMER ANALYST ST EMERGENCY 34506 [facility] DEPT 5 5 EMERGENCY DONOVAN VISIT HIGH PHYSICIAN SEVERITY& S THREAT FUNCJ OFFICE 78574 [facility] OUTPATIEN 5 5 NO THO T VISIT 25 PHYSICIAN MINUTES [facility] ST. - 5 5 NO OUTPATIEN LAUREANO T OFFICE 89171 GRAVES GRAVES OUTPATIEN 5 5 LES LES T VISIT [address] [facility] OUTPATIEN 5 5 NO THO T VISIT [address] - 5 5 NO OUTPATIEN MED CTR T PROFESSIONAL PROGRAMMER ANALYST OFFICE 89305 [facility] CONSULTAT 5 5 NO THO ION NEW/ESTAB PHYSICIAN PATIENT S 60 MIN [facility]OSPITAL [facility] - 5 5 [facility] - 5 5 [facility] OUTPATIEN [facility] - 5 5 [facility] 07880 GRAVES GRAVES OUTPATIEN 5 5 LES LES T NEW 30 MINUTES [facility]OS[facility] 93981 FAMILY ROBERT OUTPSYCHIATRICEN 5 5 CARE R H T VISIT ASSOCIATE 15 S MINUTES
--- OUTSIDE RECORDS SUMMARY | 2016-12-14 00:42 | External Medical Summary Rpt | CCD ---
Author Author , YOSHI Organization YOSHI Address Unknown Phone [email or web address] Care Team Providers Care Distribution Sales Representative Name Role Phone ATKINS TRA, ATKINS Unavailable [...] GRAVES LES, GRAVES Unavailable Unavailable LES [facility] Unavailable Unavailable INC, [facility] Unavailable Unavailable [facility]PITAL P, [facility] HERFEL DONOVAN, HERFEL Unavailable Unavailable DONOVAN [facility], Unavailable Unavailable [facility] HURST LLUVIA, HURST LLUVIA Unavailable Unavailable HARPER MAR, HARPER Unavailable Unavailable MAR [facility] Un[facility] Unavailable [facility] Unavailable [...] Unavailable DAILY GAR, DAILY Unavailable Unavailable GAR YOLADNA VERENICE, YOLANDA Unavailable Unavailable VERENICE [facility], Unavailable Unavailable [facility] Unavailable Unavailable FIELD IRONWORKER [facility], [facility]ON[facility] NO Unavailable Unavailable PHYSICIANS, NO [facility], Unavailable Unavailable [facility] STUMP, STUMP Unavailable Unavailable [place] Unavailable Unavailable [facility], Unavailable Unavailable [facility] Unavailable Unavailable [facility], [facility] Unavailable Unavailable [facility] WE[facility] ADDISON, WELL[facility] ADDISON Unavailable Unavailable AARON BAR, AARON BAR Unavailable Unavailable Purpose Continuity of Care Document - 05-18-2014 through 2016 Problems Code Diagnosis DOS Provider Status Q211 ATRIAL 09-19-2016 [facility]PTAL [facility] PHY [id number] BASAL CELL 05-28-2016 SCALF CARCINOMA SKIN OF OTHER PART OF TRUNK M2242 CHONDROMALA 05-27-2016 [facility] CONRADO PHYSICIANS PATELLAE GROUP LEFT KNEE [id number] DERANG POST 05-27-2016 [facility] HORN MED PHYSICIANS MENISC OLD GROUP TEAR/INJ LT KNEE [id number] UNS TEAR 05-27-2016 [facility] UNS ANESTH OF MENISCUS THE BLUE CURR INJ LT KNEE INIT ENC [id number] SPRAIN ANT 05-27-2016 [facility] CRUCIATE PHYSICIANS LIGAMENT LT GROUP KNEE INITIAL ENC I491 ATRIAL 05-17-2016 [facility] DEPOLARIZAT INC ION I493 VENTRICULAR 05-17-2016 [facility] DEPOLARIZAT INC ION R9431 ABNORMAL 05-17-2016 [facility] ELECTROCARD [facility] IOGRAM INC K09089 ENCOUNTER 05-17-2016 [facility] FOR OTHER [facility] PREPROCEDUR INC AL EXAMINATION M06644 ENCOUNTER 05-08-2016 [facility] AL CARIOVASCUL AR EXAM W98963 ENCOUNTER 05-08-2016 [facility] AL RESPIRATORY EXAM D76371 ENCOUNTER 05-08-2016 [facility] AL LABORATORY EXAM Z720 TOBACCO USE 05-08-2016 [facility] M40892O COMPLEX 04-30-2016 [facility] TEAR MED PHYSICIANS MENISCUS GROUP CURR [...] F/U EXAM AFTER CMPL TX MALIG NEOPLASM G55888 PERSONAL 04-18-2016 BELLE HISTORY OTHER MALIGNANT NEOPLASM SKIN K59042 DERANGEMNT 04-12-2016 [facility] UNS MED [facility] MENISCUS INC OLD TEAR/INJ LT KNEE U52958 EFFUSION 04-12-2016 [facility]NEE [facility] M7122 SYNOVIAL 04-12-2016 [facility] CYST [facility]ICAL POPLITEAL IMAGING ASS SPACE VAUGHN LEFT KNEE [id number] OTH TEAR 04-12-2016 [facility] MENISCUS [facility] ASS CURR INJ LT KNEE INIT ENC I30332 PAIN IN 04-04-2016 [facility] LEFT [facility]NEE [facility] M7989 OTHER 04-04-2016 [facility] SPECIFIED MEDICAL SOFT TISSUE IMAGING ASS DISORDERS R002 PALPITATION 09-29-2015 [facility] I471 SUPRAVENTRI 08-16-2015 ST CULAR NO TACHYCARDIA PHYSICIANS C4491 BASAL CELL 07-19-2015 SCALF LEI CARCINOMA OF SKIN, UNSPECIFIED D0439 CARCINOMA 07-19-2015 SCALF LEI IN SITU OF SKIN OF OTHER PARTS OF FACE G04880 SQUAMOUS 05-18-2015 [facility] LEI CELL CARCINOMA SKIN [...] PNEUMONIA 01-03-2015 [facility] UNSPECIFIED EMERGENCY ORGANISM PHYSICIANS 62240 SUPRAVENTRI 11-25-2014 ST CULAR NO PREMATURE PHYSICIANS BEATS 37827 OTHER 11-25-2014 ST PREMATURE NO BEATS PHYSICIANS 75300 OTHER 11-25-2014 ST SPECIFIED NO CARDIAC PHYSICIANS DYSRHYTHMIA S 2166 KARLO 10-27-2014 GRAVES LES NEOPLASM SKIN UPPER LIMB INCLUDING SHOULDER 14007 OTHER 10-27-2014 GRAVES LES CHRONIC DERMATITIS DUE TO SOLAR RADIATION 7020 ACTINIC 10-27-2014 GRAVES LES KERATOSIS V1083 PERSONAL 10-27-2014 GRAVES LES HISTORY OTHER MALIGNANT NEOPLASM SKIN V6549 OTHER 10-27-2014 GRAVES LES SPECIFIED COUNSELING V7260 LABORATORY 09-05-2014 ST EXAMINATION NO MED 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 UNSPECIFIED ST 13886 BASAL CELL 07-27-2014 ATKINS TRA CARCINOMA SKIN TRUNK EXCEPT SCROTUM 31298 BASAL CELL 07-27-2014 ATKINS TRA CARCINOMA SKIN UPPER LIMB INCL SHOULD 4293 CARDIOMEGAL 07-18-2014 [facility] 7455 OSTIUM 07-18-2014 [facility] TYPE ATRIAL [facility] SEPTAL DEFECT 7851 PALPITATION 07-11-2014 [facility] 2165 BENIGN 06-23-2014 GRAVES LES NEOPLASM OF SKIN OF TRUNK EXCEPT SCROTUM 2167 BENIGN 06-23-2014 GRAVES LES NEOPLASM SKIN LOWER LIMB INCLUDING HIP 2168 BENIGN 06-23-2014 SCALF LEI NEOPLASM OF OTHER SPECIFIED SITES OF SKIN 2382 NEOPLASM OF 06-23-2014 SCALF LEI UNCERTAIN BEHAVIOR OF SKIN 6869 UNSPEC 06-23-2014 SCALF LEI LOCAL INFECTION SKIN&SUBCUT ANEOUS TISSUE 27843 CHEST PAIN 06-09-2014 [facility] P Medications Na ND Rx Da Fi [...] 1 84 PH CE AR TA MA [place] CY NO PH #5 EN 91 5- 32 5 Procedures Procedure DOS Code Location Performer Comment INJECTION J3010 [facility] [place] 7 Y OF Y OF CITRATE [place] 0.1 MG I MED I MED DOPPLER 98738 CARLO BOYCE ECHOCARD 7 Y OF PULSE [place] WAVE I PHY W/SPECTRA L DISPLAY INJECTION J2250 [facility] 7 Y OF Y OF MIDAZOLAM [place] HCL PER I MED I MED 1 MG JOSÉ ANTONIO W OR C8925 [facility] W/O FLW 7 Y OF Y OF W/CNTRST [place] REAL TIME I MED I MED 2D; ACQ I&R ECHO 74920 [facility] 7 Y OF HAG R-T [place] 2D W/PRB I PHY IMG ACQUISJ I&R DOP 30776 [facility] ECHOCARD 7 Y OF COLOR [place] FLOW I PHY VELOCITY MAPPING EXCISION 28051 YOSHI BELLE MAL 7 LESION TRUNK/ARM /LEG 2.1-3[place] [address] SCALF SCALF SURG 7 PATHOLOGY GROSS&GUSTAVO ROSCOPIC EXAM IMHISTOCH 79287 SCALF SCALF EM/CYTCHM 7 1ST ANTIBODY STAIN PROCEDURE REPAIR 38483 YOSHI BELLE INTERMEDI 7 ATE S/A/T/E 2.6-7.5 CM ARTHROSCO 77505 [facility] PETTEY PY KNEE 7 PHYSICIAN W/MENISCU S GROUP S RPR MEDIAL/LA TERAL ARTHRS 04967 [facility] STUMP KNEE 7 PHYSICIAN ABRASION S GROUP ARTHRP/ML T DRLG/MICR OFX URNLS DIP 89498 [facility] 7 [facility] STICK/TAB INC INC LET REAGENT AUTO MICROSCOP Y ANES 39902 [facility] RED OPEN/SURG 7 ANESTH OF THE ARTHROSCO BLUE PIC PROC KNEE JOINT NOS ECHO 46250 [facility] TTHRC R-T 7 [facility] 2D INC INC W/WOM-MOD E COMPL SPEC&COLR D ECG 22215 [facility] ROUTINE 7 [facility] ECG INC INC W/LEAST 12 LDS TRCG ONLY W/O I&R ECG 16929 [facility] ROUTINE 7 [facility] W/LEAST P 12 LDS I&R ONLY BLOOD 89405 [facility] COUNT 7 [facility] COMPLETE INC INC AUTO&AUTO DIFRNTL WBC RADIOLOGI 45213 [facility] C EXAM 7 [facility] CHEST 2 INC INC VIEWS FRONTAL&L ATERAL BASIC 69036 [facility] SALGADOON METABOLIC 7 [facility] PANEL INC INC CALCIUM TOTAL COLLECTIO 39588 [facility] N VENOUS 7 [facility] BLOOD INC INC VENIPUNCT URE ECG 22510 [facility] ROUTINE 7 [facility] ECG INC INC W/LEAST 12 LDS TRCG ONLY W/O I&R DESTRUCTI 78475 BELLE BELLE ON 7 PREMALIGN [place]ES[place] 1ST [place] [address] SCALF SCALF SURG 7 PATHOLOGY GROSS&GUSTAVO ROSCOPIC EXAM IMHISTOCH 80417 SCALF SCALF EM/CYTCHM 7 1ST ANTIBODY STAIN PROCEDURE DESTRUCTI 41540 BELLE BELLE ON 7 PREMALIGN ANT LESION 2-14 EA BX SKIN 49122 BELLE BELLE SUBCUTANE 7 OUS&/MUCO US MEMBRANE 1 LESION MRI ANY 33642 [facility] JT LOWER 7 MEDICAL MEDICAL EXTREM IMAGING IMAGING W/O ASS ASS CONTRAST MATRL RADIOLOGI 04055 [facility] C EXAM 7 [facility] KNEE INC INC COMPLETE 4/MORE VIEWS INTRACARD 43409 ST [facility] IAC 6 NO THO ELECTROPH YSIOLOGIC PHYSICIAN 3D S MAPPING COMPRE 39755 [facility] ELECTROPH 6 NO THO YSIOL XM W/LEFT PHYSICIAN ATRIAL S PACNG/REC ANES 87894 ANESTHESI [facility] CARDIAC 6 A GROUP ELECTROPH PRACTICE YSIOL STDY W/RF ABLATION EPHYS 42173 ST [facility] EVAL 6 NO THO W/ABLATIO N PHYSICIAN SUPRAVENT S ARRHYTHMI A DESTRUCTI 63994 SCALF LEI SCALF LEI ON MAL 6 LESION F/E/E/N/L /M 0.6-1.0CM EXCISION 35863 SCALF LEI SCALF LEI MAL 6 LESION TRUNK/ARM /LEG 2.1-[place] [address] SCALF LEI SCALF LEI SURG 6 PATHOLOGY GROSS&GUSTAVO ROSCOPIC EXAM IMHISTOCH 61663 SCALF LEI SCALF LEI EM/CYTCHM 6 1ST ANTIBODY STAIN PROCEDURE REPAIR 60650 SCALF LEI SCALF LEI INTERMEDI 6 ATE S/A/T/E 2.6-7.[address] GADOBENAT 6 NO NO E MED CTR MED CTR DIMEGLUMI FIELD IRONWORKER ST FIELD IRONWORKER ST NE MULTIHANC E PER ML CARDIAC 97315 RADIOLOGY [facility] MRI W/WO 6 GAR CONTRAST ASSOCIATE & FURTHER S OF [facility] [place] [address] ACTIVATED 6 NO NO ECG LAUREANO LAUREANO RECORD MONITOR [address] [place] [address] [address] ISAURA ACTIVTD 6 NO CARLOS EDUARDO ECG DWNLD W/R&I PHYSICIAN </30 DAYS S SHVG SKIN 30630 GRAVES GRAVES LESION 1 6 LES LES TRUNK/ARM /LEG DIAM 0.6-1.0 CM BX SKIN 76702 GRAVES GRAVES SUBCUTANE 6 LES LES OUS&/MUCO US MEMBRANE 1 LESION IMHISTOCH 01300 SCALF LEI SCALF LEI EM/CYTCHM 6 1ST ANTIBODY STAIN PROCEDURE DESTRUCTI 39441 GRAVES GRAVES ON 6 LES LES PREMALIGN AN[place] LESION 1ST [place] [address] SCALF LEI SCALF LEI SURG 6 PATHOLOGY GROSS&GUSTAVO ROSCOPIC EXAM ECG [address] [facility] ROUTINE 6 NO THO ECG W/LEAST PHYSICIAN 12 LDS S W/I&R INTRACARD 70494 [facility] IAC 6 NO THO ELECTROPH YSIOLOGIC PHYSICIAN 3D S MAPPING COMPRE 07803 [facility] ELECTROPH 6 NO THO YSIOL XM W/LEFT PHYSICIAN ATRIAL S PACNG/REC EPHYS 44899 [facility] EVAL 6 NO THO W/ABLATIO N PHYSICIAN SUPRAVENT S ARRHYTHMI A PROGRAMME 09906 ST FROY D STIMJ & 6 NO O PACG AFTER IV PHYSICIAN DRUG NFS S ANES 00213 ANESTHESI CELI ANURADHA CARDIAC 6 A GROUP ELECTROPH PRACTICE, YSIOL I STDY W/RF ABLATION XTRNL ECG [address]84 ST HARPER 6 NO MAR CONTINUOU S RHYTHM PHYSICIAN W/I&R UP S TO [address] EPREYRA LLUVIA TTHRC R-T 6 NO 2D W/WOM-MOD PHYSICIAN E COMPL S SPEC&COLR D DESTRUCTI 82481 GRAVES GRAVES ON 5 LES LES PREMALIGN ANT LESION 1ST DESTRUCTI 48163 GRAVES GRAVES ON 5 LES LES PREMALIGN ANT LESION 2-14 [facility] [address] [facility] DISCHARGE 5 NO THO DAY MANAGEMEN PHYSICIAN T 30 S MIN/< ECG 81625 ST AARON BAR ROUTINE 5 NO ECG MED CTR W/LEAST 12 LDS I&R ONLY ECG 72911 ST MAGO MAR ROUTINE 5 NO ECG MED CTR W/LEAST 12 LDS I&R ONLY SBSQ [address] CARE/DAY 25 PHYSICIAN MINUTES S ECG [address] ST MAGO MAR ROUTINE 5 NO ECG MED CTR W/LEAST 12 LDS I&R ONLY INITIAL 42147 [address] CARE/DAY 50 PHYSICIAN MINUTES S RADIOLOGI 49249 RADIOLOGY HURST LLUVIA C 5 EXAMINATI ASSOCIATE ON CHEST S OF [facility] [place] FRONTAL ECG [address] FROY ROUTINE 5 NO THO ECG W/LEAST PHYSICIAN 12 LDS S W/I&R ANES 18561 INDEPENDE WELLS ADDISON CARDIAC 5 NT ELECTROPH ANESTHESI YSIOL OLOGIST STDY W/RF ABLATION INTRACARD 29323 ST [facility] IAC 5 NO ELECTROPH YSIOLOGIC PHYSICIAN 3D S MAPPING PROGRAMME [address] ST [address] D STIMJ & 5 NO NO PACG AFTER IV PHYSICIAN PHYSICIAN DRUG NFS S S INTRACARD 67965 [facility] ECHOCARD 5 NO W/THER/DX PHYSICIAN IVNTJ S INCL IMG S&I COMPRE 06264 [facility] ELECTROPH 5 NO YSIOL XM W/LEFT PHYSICIAN ATRIAL S PACNG/REC COMPRE 86821 [facility] ELECTROPH 5 NO YSIOLOGIC PHYSICIAN ARRHYTHMI S A INDUCTION ECG [address]58 [facility] FROY ROUTINE 5 NO THO ECG W/LEAST PHYSICIAN 12 LDS S W/I&R EXTERNAL [address] ECG [facility] SCANNING LAUREANO LAUREANO ANALYSIS REPORT XTRNL ECG [address] & [address] [facility] RECORDING LAUREANO LAUREANO ECG [address] [facility] ROUTINE 5 NO THO ECG W/LEAST PHYSICIAN 12 LDS S W/I&R DESTRUCTI 93894 GRAVES GRAVES ON 5 LES LES PREMALIGN ANT LESION 15/> ECG 76285 [facility] ROUTINE 5 NO THO ECG W/LEAST PHYSICIAN 12 LDS S W/I&R INTRACARD 64903 [facility] IAC 5 NO THO ELECTROPH YSIOLOGIC PHYSICIAN 3D S MAPPING COMPRE 92193 [facility] ELECTROPH 5 NO THO YSIOL XM W/LEFT PHYSICIAN ATRIAL S PACNG/REC EPHYS 85660 [facility] EVAL 5 NO THO W/ABLATIO N PHYSICIAN SUPRAVENT S ARRHYTHMI A PROGRAMME 42474 ST FROY D STIMJ & 5 NO THO PACG AFTER IV PHYSICIAN DRUG NFS S ANES 34870 INDEPENDE PARRISH CARDIAC 5 NT ELECTROPH ANESTHESI YSIOL OLOGIST STDY W/RF ABLATION BLOOD [address] COUNT 5 NO NO COMPLETE MED CTR MED CTR AUTO&AUTO FIELD IRONWORKER ST FIELD IRONWORKER ST DIFRNTL WBC BASIC [address] METABOLIC 5 NO NO PANEL MED CTR MED CTR CALCIUM FIELD IRONWORKER ST FIELD IRONWORKER ST TOTAL PROTHROMB [address] ST [address] IN TIME 5 NO NO MED CTR MED CTR FIELD IRONWORKER ST FIELD IRONWORKER ST ECG [address] [facility] ROUTINE 5 NO THO ECG W/LEAST PHYSICIAN 12 LDS S W/I&R DESTRUCTI 86259 ATKINS ATKINS ON MAL 5 TRA TRA LESION TRUNK/ARM /LEG 3.1-4.0CM DESTRUCTI 51412 ATKINS ATKINS ON MAL 5 TRA TRA LESION TRUNK/ARM /LEG 1.1-2.0CM CARDIAC 66417 [facility] MRI FOR 5 MEDICAL VELOCITY SERV FLOW FOUNDATIO MAPPING N CARDIAC 77060 [facility] MRI W/WO 5 MEDICAL CONTRAST SERV & FURTHER FOUNDATIO SEQ N INJECTION A9579 [facility] 5 Y Y [facility] M BASED MR CONTRAST NOS ML ECHO 75198 RFANTZ GUERRERO TTHRC R-T 5 MEDICAL VERENICE 2D SERV W/WOM-MOD FOUNDATIO E COMPL N SPEC&COLR D ECG 29543 [facility] ROUTINE 5 [facility] ECG INC INC W/LEAST 12 LDS TRCG ONLY W/O I&R BIOPSY 31471 GRAVES GRAVES SKIN 5 LES LES SUBQ&/MUC OUS MEMBRANE EA ADDL LESN DESTRUCTI 99856 GRAVES GRAVES ON 5 LES LES PREMALIGN ANT LESION 2-14 EA DESTRUCTI 43516 GRAVES GRAVES ON 5 LES LES PREMALIGN [place] 1ST [place] [address] SCALF LEI SCALF LEI SURG 5 PATHOLOGY GROSS&GUSTAVO ROSCOPIC EXAM IMHISTOCH 19355 SCALF LEI SCALF LEI EM/CYTCHM 5 1ST ANTIBODY STAIN PROCEDURE BX SKIN 68670 GRAVES GRAVES SUBCUTANE 5 LES LES OUS&/MUCO US MEMBRANE 1 LESION XTRNL ECG 91256 [facility] & 48 HR 5 [facility] RECORDING INC INC XTRNL ECG 33243 [facility] [place] 5 [facility] S RHYTHM P W/I&R UP TO 48 HRS EXTERNAL 58293 [facility] ECG 5 [facility] SCANNING INC INC ANALYSIS REPORT RADIOLOGI 22492 [facility] C EXAM 5 MEDICAL LALI CHEST 2 IMAGING VIEWS ASS FRONTAL&L ATERAL Encounters Encounter Start End Date Code Location Performer Type Date OFFICE 97712 [facility] OUTPATIEN 7 7 Y OF T [address] [place] [address] UNIVERS - [address] [facility] - 7 7 [facility] - 7 7 [facility] - 7 7 [facility]PATI[facility] A[facility] - 7 7 [facility] OFF[facility] 85178 [facility] 7 7 PHYSICIAN T VISIT S GROUP 15 MINUTES OFFICE 11141 [facility]HI BELLE [facility] 7 7 T VISIT 25 MINUTES [facility] A[facility]UST - 7 7 [facility]PATIEN [facility]UGUST - 7 7 [facility] OUTPATIEN [facility] OFFICE 96505 [facility] OUTPATIEN 7 7 PHYSICIAN T VISIT S GROUP 15 MINUTES OFFICE 93662 [facility] OUTPATIEN 6 6 CARE VÍCTOR T VISIT ASSOCIATE 15 S MINUTES [facility] - 6 6 NO OUTPATIEN MED [facility] - 6 6 [facility] LAUREANO T OFFICE 36956 GRAVES GRAVES OUTPATIEN 6 6 LES LES T VISIT [address] [facility] OUTPATIEN 6 6 NO THO T VISIT 25 PHYSICIAN MINUTES S OFFICE 53658 GRAVES GRAVES OUTPATIEN 5 5 LES LES T VISIT [address] - 5 5 NO INPATIENT MED CTR FIELD IRONWORKER ST EMERGENCY 67950 [facility] DEPT 5 5 EMERGENCY DONOVAN VISIT HIGH PHYSICIAN SEVERITY& S THREAT FUNCJ OFFICE 91429 [facility] OUTPATIEN 5 5 NO THO T VISIT [address] [facility] - 5 5 NO OUTPATIEN LAUREANO T OFFICE 38466 GRAVES GRAVES OUTPATIEN 5 5 LES LES T VISIT [address] [facility] OUTPATIEN 5 5 NO THO T VISIT [address] - 5 5 NO OUTPATIEN MED CTR T FIELD IRONWORKER OFFICE 087[address] [facility] CONSULTAT 5 5 NO THO ION NEW/ESTAB PHYSICIAN PATIENT S 60 MIN HOSPITAL UNIVERSIT - 5 5 Y [facility] - 5 5 [facility] OUTPATIEN [facility] - 5 5 [facility] 21346 GRAVES GRAVES OUTPATIEN 5 5 LES LES T NEW 30 MINUTES HOSPITAL [facility] - 5 5 [facility] OFFICE 02723 [facility] 5 5 CARE R H T VISIT ASSOCIATE 15 S MINUTES
--- OUTSIDE RECORDS SUMMARY | 2016-12-14 00:43 | External Medical Summary Rpt | CCD ---
Demographics Preferred Language Ghanaian Marital Status Unknown Mandaeism Affiliation Unknown Race Unknown Ethnic Group Unknown Author Author , YOSHI BELLE Address Unknown Phone Immunization No patient found.
--- OUTSIDE RECORDS SUMMARY | 2016-12-14 00:43 | External Medical Summary Rpt | CCD ---
Demographics Preferred Language Portuguese Marital Status Unknown Taoism Affiliation Unknown Race Unknown Ethnic Group Unknown Author Author , YOSHI BELLE Address Unknown Phone Immunization No patient found.
--- OUTSIDE RECORDS SUMMARY | 2016-12-14 00:44 | External Medical Summary Rpt ---
Author Author YOSHI Torres, [employer] Organization [employer] Address Unknown Phone Unavailable Results Lipid 1996 panel in Serum or Plasma Observa Value Referen Units Interpr Notes Date tion ce etation Range Cholester < 200 mg/dL No No Dec 08 ol informati informati 2016 [Moles/vo on in on in 10:44 PM lume] in source source Unspecifi data data ed specimen Cholester 40 - 60 MG/DL Normal No Dec 08 ol in HDL inform2016 on in 10:44 PM [Mass/vol source ume] in data Serum or Plasma Cholester 0 - 130 mg/dL Normal No Dec 08 ol in LDL inform2016 on in 10:44 PM [Mass/vol source ume] in data Serum or Plasma by calculati on Triglycer 30 - 200 mg/dL Normal No Dec 08 saray 2016 [Moles/vo on in 10:44 PM lume] in source Serum or data Plasma Cholester 0 - 40 No Normal No Dec 08 ol in inform2016 VLDL on in on in 10:44 PM [Mass/vol source source ume] in data data Serum or Plasma CBC W Auto Differential panel in Blood Observa Value Referen Units Interpr Notes Date tion ce etation Range Basophils 0 - 0.2 K/MM3 Normal No Dec 082016 [#/volume on in 10:44 PM ] in source Blood by data Automated count Basophils 0.1 - 2.0 % Normal No Dec 082016 leukocyte on in 10:44 PM s in source Blood by data Automated count Eosinophi 0.0 - 0.4 K/mm3 High No Dec 08 ls 2016 [#/volume on in 10:44 PM ] in source Blood by data Automated count Eosinophi 0.1 - % Normal No Dec 08 ls/100 12.0 2016 leukocyte on in 10:44 PM s in source Blood by data Automated count Granulocy 1.3 - 8.0 K/mm3 Normal No Dec 08 jaleel 2016 [#/volume on in 10:44 PM ] in source Blood by data Automated count Granulocy 37.0 - % Normal No Dec 08 jaleel/100 80.0 inform2016 leukocyte on in 10:44 PM s in source Blood by data Automated count Hematocri 42.0 - % Normal No Dec 08 t [Volume 52.0 informati 2016 on in 10:44 PM Fraction] source of Blood data Hemoglobi 14.1 - g/dL Normal No Dec 08 n 18.0 informati 2016 [Mass/vol on in 10:44 PM ume] in source Blood data Lymphocyt 0.7 - 4.5 K/mm3 Normal No Dec 08 es informati 2016 [#/volume on in 10:44 PM ] in source Unspecifi data ed specimen by Automated count Lymphocyt 10 - 50 % Normal No Dec 08 es inform2016 [#/volume on in 10:44 PM ] in source Unspecifi data ed specimen by Automated count Erythrocy 27 - 31.2 pg Normal No Dec 08 te mean 2016 corpuscul on in 10:44 PM ar source hemoglobi data n [Entitic mass] Erythrocy 31.8 - g/dl Normal No Dec 08 te mean 35.4 2016 corpuscul on in 10:44 PM ar source hemoglobi data n concentra tion [Mass/vol ume] by Automated count Erythrocy 82.2 - fl Normal No Dec 08 te mean 97.8 inform2016 corpuscul on in 10:44 PM ar volume source [Entitic data volume] by Automated count Monocytes 0.1 - 1.0 K/mm3 Normal No Dec 082016 [#/volume on in 10:44 PM ] in source Blood by data Automated count Monocytes 1.7 - 9.3 % Normal No Dec 08 / inform2016 leukocyte on in 10:44 PM s in source Blood by data Automated count Platelet 7.4 - fl Normal No Dec 08 mean 10.4 informati 2016 volume on in 10:44 PM [Entitic source volume] data in Blood by Automated count Platelets 142 - 424 K/mm3 Normal No Dec 082016 [#/volume on in 10:44 PM ] in source Blood data Erythrocy 4.6 - 6.2 M/mm3 Normal No Dec 08 jaleel informati 2016 [#/volume on in 10:44 PM ] in source Amniotic data fluid Erythrocy 11.5 - % Normal No Dec 08 te 17.5 inform2016 distribut on in 10:44 PM ion width source [Entitic data volume] by Automated count Leukocyte 4.8 - K/MM3 Normal No Dec 08 s 10.8 inform2016 [#/volume on in 10:44 PM ] in source Blood data [facility] MONIT[employer] RECORDING AND ANALYSIS Observa Value Referen Units Interpr Notes Date tion ce etation Range Scanned No No No No Oct 16 Holter informa informa informa informa 2015 tion in tion in tion in tion in 10:42 Report\ source source source source AM .br\St. data data data data Elizabe th [employer]\.br\ Interpr etive Stateme nts\.br \Fund Director Date: 10-17-19\.br\ Referri ng Physici an: Jerri Jennings MD\.br\ Patient was monitor ed for 48 hours. Diary entries were present \.br\IN DICATIO NS: Prematu re atrial contrac tions, Suprave ntricul ar tachyca rdia\.b r\CONCL USION:\ .br\DAY 1\.br\1 . Rhythm was sinus with episode s of sinus arrhyth suzy.\.b r\2. There was rare SVE.\.b r\3. There was rare VE.\.br \4. Patient marker was not used.\. br\5. Diary entries indicat ing tiredne ss, dizzine ss and not feeling well\.b r\corre lated with sinus rhythm. \.br\SV /AF [place]: 0%\.br\ DAY 2\.br\1 . Rhythm was sinus with episode s of PSVT and sinus arrhyth suzy.\.b r\2. There was rare SVE.\.b r\3. There was rare VE, includi ng bigemin y.\.br\ 4. Patient marker was not used.\. br\5. Diary entries indicat ing not feeling well, dizzine ss, lighthe adednes s and\.br \tiredn ess correla marcy with sinus rhythm, VE and SVE.\.b r\SV [place]: 3.86 seconds (0.01%) ; 9 beats (0.01%) \.br\El ectroni yvon Signed On 10-25-19 10:20:0 6 EDT by Tejas Johnson MD ELECTROPHYSIOLOGY PROCEDURE Observa Value Referen Units Interpr Notes Date tion ce etation Range This is No No No No Aug 15 a informa informa informa informa 2016 summary tion in tion in tion in tion in 12:20 source source source source PM report. data data data data The complet e report is availab le in the patient 's medical record. If you cannot access the medical record, please [facility] d fax or copy.\. br\\.br \ Prematu re Atrial Contrac tion Ablatio n PT Observa Value Referen Units Interpr Notes Date tion ce etation Range PT/INR only if patient is on Coumadin. Notify production control coordinating clerk if INR is 1.8 or greater PT 11.5 10.1 - second( No No Aug 15 12.9 s) informa informa 2016 tion in tion in 7:41 AM source source data data INR in 1.00 0.88 - No No Level Aug 15 Platele 1.12 informa informa of 2016 t poor tion in tion in Therapy 7:41 AM plasma source source by data data Indicat Coagula ions tion Target assay INR Range\. br\\.br \Standa rd Dose Treatme nt and prophyl axis of venous 2.0 - 3.0\.br \ thrombo sis, pulmona ry embolis m\.br\\ .br\ High Dose High risk patient s with mechani zunilda 2.5 - 3.5\.br \ heart valves Auto Diff Observa Value Referen Units Interpr Notes Date tion ce etation Range Neutrop 53.7 No % No No Aug 15 hils informa informa informa 2016 [#/volu tion in tion in tion in 7:27 AM me] in source source source Blood data data data by Automat ed count Lymphoc 33.4 No % No No Aug 15 ytes informa informa informa 2016 [#/volu tion in tion in tion in 7:27 AM me] in source source source Blood data data data by Automat ed count Monocyt 6.0 No % No No Aug 15 es informa informa informa 2016 [#/volu tion in tion in tion in 7:27 AM me] in source source source Blood data data data by Automat ed count Eos 6.4 No % No No Oskar 15 Percent informa informa informa 2016 tion in tion in tion in 7:27 AM source source source data data data Baso 0.5 No % No No Oskar 15 Percent informa informa informa 2016 tion in tion in tion in 7:27 AM source source source data data data Neut# 4.0 1.8 - x10(3)/ No No Oskar 15 7.7 mcL informa informa 2016 tion in tion in 7:27 AM source source data data Lymph# 2.5 0.6 - x10(3)/ No No Oskar 15 4.8 mcL informa informa 2016 tion in tion in 7:27 AM source source data data Cobb# 0.4 0.0 - x10(3)/ No No Oskar 15 1.3 mcL informa informa 2016 tion in tion in 7:27 AM source source data data Eos# 0.5 0.0 - x10(3)/ No No Oskar 15 0.5 mcL informa informa 2016 tion in tion in 7:27 AM source source data data Baso# 0.0 0.0 - x10(3)/ No No Oskar 15 0.2 mcL informa informa 2016 tion in tion in 7:27 AM source source data data CBC Observa Value Referen Units Interpr Notes Date tion ce etation Range Do not repeat if done in the past 10 days. LEUKOCY 7.4 4.0 - x10(3)/ No No Oskar 15 JALEEL 11.0 mcL informa informa 2016 tion in tion in 7:27 AM source source data data Erythro 5.02 4.30 - x10(6)/ No No Oskar 15 cytes 5.81 mcL informa informa 2016 [#/volu tion in tion in 7:27 AM me] in source source Blood data data by Automat ed count Hemoglo 14.9 13.5 - gm/dL No No Oskar 15 bin 17.1 informa informa 2016 [Mass/v tion in tion in 7:27 AM olume] source source in data data Blood Hematoc 43.6 38.9 - % No No Aug 15 rit 51.6 informa informa 2016 [Volume tion in tion in 7:27 AM source source Fractio data data n] of Blood by Automat ed count Erythro 86.8 82.5 - fL No No Aug 15 cyte 99.8 informa informa 2016 mean tion in tion in 7:27 AM corpusc source source ular data data volume [Entiti c volume] by Automat ed count Erythro 29.6 27.0 - pg No No Aug 15 cyte 34.3 informa informa 2016 mean tion in tion in 7:27 AM corpusc source source ular data data hemoglo bin [Entiti c mass] by Automat ed count Erythro 34.1 32.1 - gm/dL No No Aug 15 cyte 35.3 informa informa 2016 mean tion in tion in 7:27 AM corpusc source source ular data data hemoglo bin concent ration [Mass/v olume] by Automat ed count Erythro 13.3 11.5 - % No No Aug 15 cyte 15.0 informa informa 2016 distrib tion in tion in 7:27 AM ution source source width data data [Ratio] by Automat ed count Platele 272 144 - x10(3)/ No No Aug 15 ts 423 mcL informa inform 2016 [#/volu tion in tion in 7:27 AM me] in source source Blood data data by Automat ed count MPV 7.0 6.8 - fL No No Aug 15 10.8 informa informa 2016 tion in tion in 7:27 AM source source data data MRI CARDIAC W WO CONTRAST Observa Value Referen Units Interpr Notes Date tion ce etation Range Cardiac No No No No Jun 28 MRI informa informa informa informa 2016 with tion in tion in tion in tion in 10:01 and source source source source AM without data data data data contras t dated 06/29/19 16\.br\ \.br\CO MPARISO N: chest radiogr aph Novembe r 2014\.b r\\.br\ \.br\HI STORY: Prematu re atrial contrac tions status post multipl e ablatio ns.\.br \Outsid e\.br\e cho questio liu a shunt.\ .br\\.b r\TECHN ICAL FACTORS : Multipl richelle multise quence MR imaging of the heart was\.br \perfor med using ECG gating. The study was perform ed before and after the\.br \intrav enous adminis tration of 10 mL MultiHa nce contras t. Cardiac analysi s\.br\w as\.br\ also perform ed on an Ulabox 3-D worksta tion.\. br\\.br \FINDIN GS:\.br \\.br\R V and LV chamber size is normal. Atrial dimensi ons are also normal. No\.br\ flow\.b r\jets are associa marcy with the aortic, pulmona ry, mitral or tricusp id\.br\ valves. \.br\Th ere is some left ventric ular apical hypokin esia.\. br\\.br \Left ventric ular functio nal analysi s was perform ed as follows (normal \.br\ra nges are\.br \listed in [facility]):\ .br\\.b r\Eject ion fractio n: 48 % (56-78% )\.br\E nd diastol ic volume: 168 mL (77-195 mL)\.br \End systoli c volume: 87 mL (19-72 mL)\.br \Stroke volume: 81 mL (51-133 mL)\.br \Cardia c output: 5.5 L/min (2.82-8 .82 L/min)\ .br\Owen cardial mass at end diastol e: 122 g (118-23 8 g)\.br\ \.br\Ri ght ventric ular functio nal analysi s was perform ed as follows (normal \.br\ra nges\.b r\are listed in [facility]): Visual inspect ion of right ventric le shows\. br\bett er\.br\ functio n than the numbers below.\ .br\\.b r\Eject ion fractio n: 41% (47-74% )\.br\E nd diastol ic volume: 81 mL (88-227 mL)\.br \End systoli c volume: 48 mL (23-103 mL)\.br \Stroke volume: 33 mL (52-138 mL)\.br \Cardia c output: 2.2 L/min (2.82-8 .82 L/min)\ .br\\.b r\Quant ificati on of flow across the aortic valve is 4.9 L/m and across the\.br \pulmon luciana valve of 5.04 L/m.\.b r\\.br\ Normal delayed enhance ment images. \.br\\. br\IMPR ESSION: No MRI evidenc e of cardiac shunt. No evidenc e of infiltr ative\. br\myoc ardial disease . LV apical hypokin esia.\. br\ ELECTROPHYSIOLOGY PROCEDURE Observa Value Referen Units Interpr Notes Date tion ce etation Range This is No No No No Apr 25 a informa informa informa informa 2015 summary tion in ti in tion in ti in 1:31 PM source source source source report. data data data data The complet e report is availab le in the patient 's medical record. If you cannot access the medical record, please [facility] for a [facility] d fax or copy.\. br\\.br \ Prematu re Atrial Contrac tions\. br\ Acutely success ful ablatio n of right atrial focus Auto Diff Observa Value Referen Units Interpr Notes Date tion ce etation Range Neutrop 56.9 No % No No Apr 25 hils informa informa informa 2015 [#/volu tion in tion in tion in 8:38 AM me] in source source source Blood data data data by Automat ed count Lymphoc 31.4 No % No No Apr 25 ytes informa informa informa 2015 [#/volu tion in tion in tion in 8:38 AM me] in source source source Blood data data data by Automat ed count Monocyt 6.2 No % No No Apr 25 es informa informa informa 2016 [#/volu tion in tion in tion in 8:38 AM me] in source source source Blood data data data by Automat ed count Eos 4.8 No % No No Apr 25 Percent informa informa informa 2016 tion in tion in tion in 8:38 AM source source source data data data Baso 0.7 No % No No Feb 23 Percent informa informa informa 2016 tion in tion in tion in 8:38 AM source source source data data data Neut# 4.3 1.8 - x10(3)/ No No Feb 23 7.7 mcL informa informa 2016 tion in tion in 8:38 AM source source data data Lymph# 2.4 0.6 - x10(3)/ No No Feb 23 4.8 mcL informa informa 2016 tion in tion in 8:38 AM source source data data Cobb# 0.5 0.0 - x10(3)/ No No Feb 23 1.3 mcL informa informa 2016 tion in tion in 8:38 AM source source data data Eos# 0.4 0.0 - x10(3)/ No No Feb 23 0.5 mcL informa informa 2016 tion in tion in 8:38 AM source source data data Baso# 0.1 0.0 - x10(3)/ No No Feb 23 0.2 mcL informa informa 2016 tion in tion in 8:38 AM source source data data CBC Observa Value Referen Units Interpr Notes Date tion ce etation Range Do not repeat if done in the past 10 days. LEUKOCY 7.5 4.0 - x10(3)/ No No Feb 23 JALEEL 11.0 mcL informa informa 2016 tion in tion in 8:38 AM source source data data Erythro 5.19 4.30 - x10(6)/ No No Feb 23 cytes 5.81 mcL informa informa 2016 [#/volu tion in tion in 8:38 AM me] in source source Blood data data by Automat ed count Hemoglo 14.8 13.5 - gm/dL No No Feb 23 bin 17.1 informa informa 2016 [Mass/v tion in tion in 8:38 AM olume] source source in data data Blood Hematoc 45.0 38.9 - % No No Feb 23 rit 51.6 informa informa 2016 [Volume tion in tion in 8:38 AM source source Fractio data data n] of Blood by Automat ed count Erythro 86.7 82.5 - fL No No Apr 25 cyte 99.8 informa informa 2016 mean tion in tion in 8:38 AM corpusc source source ular data data volume [Entiti c volume] by Automat ed count Erythro 28.5 27.0 - pg No No Apr 25 cyte 34.3 informa informa 2016 mean tion in tion in 8:38 AM corpusc source source ular data data hemoglo bin [Entiti c mass] by Automat ed count Erythro 32.9 32.1 - gm/dL No No Apr 25 cyte 35.3 informa informa 2016 mean tion in tion in 8:38 AM corpusc source source ular data data hemoglo bin concent ration [Mass/v olume] by Automat ed count Erythro 13.7 11.5 - % No No Apr 25 cyte 15.0 informa informa 2016 distrib tion in tion in 8:38 AM ution source source width data data [Ratio] by Automat ed count Platele 256 144 - x10(3)/ No No Apr 25 ts 423 mcL informa informa 2016 [#/volu tion in tion in 8:38 AM me] in source source Blood data data by Automat ed count MPV 7.1 6.8 - fL No No Apr 25 10.8 informa informa 2016 tion in tion in 8:38 AM source source data data EC ECHOCARDIOGRAM COMPLETE W DOPPLER AND COLOR FLOW MAPPING Observa Value Referen Units Interpr Notes Date tion ce etation Range This No No No No Mar 22 patient informa informa informa informa 2016 tion in tion in tion in tion in 10:24 receive source source source source AM d an data data data data examina tion at the [facility] are Vascula r Laborat ory.\.b r\The complet e report can be found in the [facility] ([facility]) Electro hayder Medical Record of the patient . EK EKG 12 LEAD Observa Value Referen Units Interpr Notes Date tion ce etation Range Station No No No No Jan 22 [place] ECG informa informa informa informa 2015 tion in tion in tion in tion in 11:12 Study\. source source source source AM br\St. data data data data Elizabe th [employer] d\.br\I nterpre tive Stateme nts\.br \SINUS RHYTHM\ .br\Carly ctronic ally Signed On 17:52:5 9 EST by Mike Oswald MD EK EKG 12 LEAD Observa Value Referen Units Interpr Notes ce etation Range Station No No No No Jan 22 luciana ECG informa informa informa informa 2014 tion in tion in tion in tion in 5:37 AM Study\. source source source source br\St. data data data data Elizabe th [employer] d\.br\I nterpre tive Stateme nts\.br \SINUS BRADYCA RDIA\.b r\ST ELEVATI ON, PROBABL Y EARLY REPOLAR IZATION \.br\El ectroni yvon Signed On 17:58:4 0 EST by Mike Oswald MD EK EKG 12 LEAD Observa Value Referen Units [facility] No No No No Jan 21 [place] ECG informa informa informa informa 2014 tion in tion in tion in tion in 10:41 Study\. source source source source PM br\St. data data data data Elizabe th [employer] d\.br\I nterpre tive Stateme nts\.br \SINUS BRADYCA RDIA\.b r\Elect ronical ly Signed On 18:01:4 5 EST by Mike Oswald MD EK EKG 12 LEAD Observa Value Referen Units Interpr [facility] No No No No Jan 21 [place] ECG informa informa informa informa 2014 tion in tion in tion in tion in 12:18 Study\. source source source source PM br\St. data data data data Elizabe th [employer] d\.br\I nterpre tive Stateme nts\.br \SINUS RHYTHM\ .br\NON SPECIFI C ST ELEVATI ON\.br\ Electro nically Signed On 19:46:4 8 EST by Mike Oswald MD EK EKG 12 LEAD Observa Value Referen Units Interpr Notes etation Range Station No No No No Jan 21 [place] ECG informa informa informa informa 2014 in in in in 6:06 AM Study\. source source source source br\St. data data data data Elizabe th [employer] d\.br\I nterpre tive Stateme nts\.br \SINUS BRADYCA RDIA\.b r\POSSI BLE RIGHT VENTRIC ULAR CONDUCT ION DELAY\. br\ST ELEVATI ON,poss ible early repolar ization \.br\an terior T-wave changes are nonspec ific,no t signifi cantly changed from prior\. br\trac ing,inf erior Q waves of prior tracing no longer present \.br\El ectroni yvon Signed On 6:45:14 EST by Tejas Rodrigues MD EK EKG 12 LEAD Observa Value Referen Units Interpr Notes [facility] Station No No No No Jan 21 [place]iana ECG informa informa informa informa 2014 in in in 3:43 AM Study\. source source source source br\St. data data data data Elizabe [employer] d\.br\I nterpre tive Stateme nts\.br \SINUS BRADYCA RDIA\.b r\POSSI BLE INFERIO R MYOCARD IAL INFARCT ION,\.b r\not present on prior tracing \.br\an terior ST elevati on and T wave changes are\.br \more pronoun joss than prior tracing ,possib le ischemi a/injur y\.br\E lectron ically Signed On 6:55:37 EST by Tejas Rodrigues MD EK EKG 12 LEAD Observa Value Referen Units Interpr [facility] No No No No Jan 20 luciana ECG informa informa informa informa 2014 in in in 1:20 PM Study\. source source source source br\St. data data data data Elizabe th [employer] d\.br\I nterpre tive Stateme nts\.br \SINUS RHYTHM\ .br\nor mal ECG\.br \Electr onicall y Signed On 015 19:07:2 0 EST by Tejas Rodrigues MD Mg Observa Value Referen Units Interpr Notes Date ti ce etation Range Magnesi 2.4 1.6 - mg/dL No No Jan 20 um 2.4 informa informa 2014 [Moles/ tion in tion in 1:13 PM volume] source source in data data Serum or Plasma XR CHEST PA AND LATERAL Observa Value Referen Units Interpr Notes Date ce etation Range XR No No No No Nov CHEST informa informa informa informa 2014 PA AND tion in tion in tion in tion in 2:55 PM LATERAL source source source source data data data data 01/04/20 15 2:55 PM\.br\ \.br\HI STORY: -Chest pain\.b r\\.br\ IMPRESS ION:\.b r\\.br\ \.br\\. br\Patc hy airspac e disease is present in the right upper lobe posteri or\.br\ segment and\.br \left infrahi lar lingula . Finding s are suspici ous for pneumon ia. Follow- up\.br\ exam\.b r\recom mended after appropr iate clinica l therapy .\.br\ EK EKG 12 LEAD Observa Value Referen Units Interpr Notes Date ti ce etation Range Station No No No No Nov 3 luciana ECG informa informa informa informa 2014 tion in tion in tion in tion in 2:20 PM Study\. source source source source br\St. data data data data Elizabe th [employer] d\.br\I nterpre tive Stateme nts\.br \SINUS RHYTHM WITH OCCASIO NAL SUPRAVE NTRICUL AR PREMATU RE COMPLEX ES\.br\ POSSIBL E RIGHT VENTRIC ULAR CONDUCT ION DELAY\. br\NONS PECIFIC T-WAVE ABNORMA LITY\.b r\Elect ronical ly Signed On 01-04-20 15 20:36:3 8 EST by Keven Ibarra MD Auto Diff Observa Value Referen Units Interpr Notes ce etation Range Neutrop 88.4 No % No No Nov 3 hils informa informa informa 2014 [#/volu tion in tion in tion in 2:19 PM me] in source source source Blood data data data by Automat ed count Lymphoc 6.2 No % No No Nov 3 ytes informa informa informa 2014 [#/volu tion in tion in tion in 2:19 PM me] in source source source Blood data data data by Automat ed count Monocyt 4.6 No % No No Nov 3 es informa informa informa 2014 [#/volu tion in tion in tion in 2:19 PM me] in source source source Blood data data data by Automat ed count Eos 0.7 No % No No Nov 3 Percent informa informa informa 2014 tion in tion in tion in 2:19 PM source source source data data data Baso 0.1 No % No No Nov 3 Percent informa informa informa 2014 tion in tion in tion in 2:19 PM source source source data data data Neut# 12.6 1.8 - x10(3)/ High No Nov 3 7.7 mcL informa 2014 tion in 2:19 PM source data Lymph# 0.9 0.6 - x10(3)/ No No Nov 3 4.8 mcL informa informa 2015 tion in tion in 2:19 PM source source data data Cobb# 0.7 0.0 - x10(3)/ No No Nov 3 1.3 mcL informa informa 2014 tion in tion in 2:19 PM source source data data Eos# 0.1 0.0 - x10(3)/ No No Nov 3 0.5 mcL informa informa 2014 tion in tion in 2:19 PM source source data data Baso# 0.0 0.0 - x10(3)/ No No Nov 3 0.2 mcL informa informa 2015 tion in tion in 2:19 PM source source data data CBC Observa Value Referen Units Interpr Notes Date tion ce etation Range LEUKOCY 14.2 4.0 - x10(3)/ High No Nov 3 JALEEL 11.0 mcL informa 2014 tion in 2:19 PM source data Erythro 4.96 4.30 - x10(6)/ No No Nov 3 cytes 5.81 mcL informa informa 2014 [#/volu tion in tion in 2:19 PM me] in source source Blood data data by Automat ed count Hemoglo 14.3 13.5 - gm/dL No No Jan 03 bin 17.1 informa informa 2014 [Mass/v tion in tion in 2:19 PM olume] source source in data data Blood Hematoc 43.0 38.9 - % No No Jan 03 rit 51.6 informa informa 2014 [Volume tion in tion in 2:19 PM source source Fractio data data n] of Blood by Automat ed count Erythro 86.7 82.5 - fL No No Jan 03 cyte 99.8 informa informa 2014 mean tion in tion in 2:19 PM corpusc source source ular data data volume [Entiti c volume] by Automat ed count Erythro 28.8 27.0 - pg No No Jan 03 cyte 34.3 informa informa 2014 mean tion in tion in 2:19 PM corpusc source source ular data data hemoglo bin [Entiti c mass] by Automat ed count Erythro 33.2 32.1 - gm/dL No No Jan 03 cyte 35.3 informa informa 2014 mean tion in tion in 2:19 PM corpusc source source ular data data hemoglo bin concent ration [Mass/v olume] by Automat ed count Erythro 13.0 11.5 - % No No Jan 03 cyte 15.0 informa informa 2014 distrib tion in tion in 2:19 PM ution source source width data data [Ratio] by Automat ed count Platele 266 144 - x10(3)/ No No Jan 03 ts 423 mcL informa informa 2014 [#/volu tion in tion in 2:19 PM me] in source source Blood data data by Automat ed count MPV 6.9 6.8 - fL No No Jan 03 10.8 informa informa 2014 tion in tion in 2:19 PM source source data data ELECTROPHYSIOLOGY PROCEDURE Observa Value Referen Units Interpr Notes Date tion ce etation Range This is No No No No Dec 5 a informa informa informa informa 2015 summary tion in tion in tion in tion in 2:23 PM source source source source report. data data data data The complet e report is availab le in the patient 's medical record. If you cannot access the medical record, please contact the sending leigh jazzy for a detaile d fax or copy.\. br\\.br \ Prematu re atrial contrac tions - RF not deliver ed due to proximi ty of\.br\ phrenic nerve\. br\ Blocked PACs\.b r\ PAC with aberran t conduct ion\.br \Vascul ar recover y: 3 hours\. br\Medi zunilda therapy to suppres s PACs: sotalol 80mg BID\.br \If medical therapy with AADs fails will conside r repeat study with\.b r\cryoa blation cathete r\.br\F ollowup in 2-3 months in the office\ .br\ ACT POC Observa Value Referen Units Interpr Notes Date tion ce etation Range ACT-LR 154 89 - second( No No Oct 5 169 s) informa informa 2015 tion in tion in 1:53 PM source source data data ACT POC Observa Value Referen Units Interpr Notes Date tion ce etation Range ACT-LR 334 89 - second( High No Oct 5 169 s) informa 2015 tion in 1:31 PM source data ACT POC Observa Value Referen Units Interpr Notes Date tion ce etation Range ACT-LR 384 89 - second( High No Oct 5 169 s) informa 2015 tion in 12:46 source PM data ACT POC Observa Value Referen Units Interpr Notes Date tion ce etation Range ACT-LR 374 89 - second( High No Oct 5 169 s) informa 2015 tion in 12:29 source PM data ACT POC Observa Value Referen Units Interpr Notes Date tion ce etation Range ACT-LR 237 89 - second( High No Oct 5 169 s) informa 2015 tion in 12:16 source PM data CBC Observa Value Referen Units Interpr Notes Date tion ce etation Range Do not repeat if done in the past 10 days. LEUKOCY 10.8 4.0 - x10(3)/ No No Oct 2 JALEEL 11.0 mcL informa informa 2014 tion in tion in 9:31 AM source source data data Erythro 5.13 4.30 - x10(6)/ No No Oct 2 cytes 5.81 mcL informa informa 2014 [#/volu tion in tion in 9:31 AM me] in source source Blood data data by Automat ed count Hemoglo 15.3 13.5 - gm/dL No No Dec 02 bin 17.1 informa informa 2015 [Mass/v tion in tion in 9:31 AM olume] source source in data data Blood Hematoc 44.5 38.9 - % No No Dec 02 rit 51.6 informa informa 2015 [Volume tion in tion in 9:31 AM source source Fractio data data n] of Blood by Automat ed count Erythro 86.8 82.5 - fL No No Dec 02 cyte 99.8 informa informa 2015 mean tion in tion in 9:31 AM corpusc source source ular data data volume [Entiti c volume] by Automat ed count Erythro 29.9 27.0 - pg No No Dec 02 cyte 34.3 informa informa 2014 mean tion in tion in 9:31 AM corpusc source source ular data data hemoglo bin [Entiti c mass] by Automat ed count Erythro 34.4 32.1 - gm/dL No No Dec 02 cyte 35.3 informa informa 2014 mean tion in tion in 9:31 AM corpusc source source ular data data hemoglo bin concent ration [Mass/v olume] by Automat ed count Erythro 13.1 11.5 - % No No Dec 02 cyte 15.0 informa informa 2014 distrib tion in tion in 9:31 AM ution source source width data data [Ratio] by Automat ed count Platele 273 144 - x10(3)/ No No Dec 02 ts 423 mcL informa informa 2014 [#/volu tion in tion in 9:31 AM me] in source source Blood data data by Automat ed count MPV 7.4 6.8 - fL No No Dec 02 10.8 informa informa 2014 tion in tion in 9:31 AM source source data data Auto Diff Observa Value Referen Units Interpr Notes Date tion ce etation Range Neutrop 68.2 No % No No Dec 02 hils informa informa informa 2014 [#/volu tion in tion in tion in 9:31 AM me] in source source source Blood data data data by Automat ed count Lymphoc 21.2 No % No No Oct 2 ytes informa informa informa 2014 [#/volu tion in tion in tion in 9:31 AM me] in source source source Blood data data data by Automat ed count Monocyt 6.2 No % No No Oct 2 es informa informa informa 2014 [#/volu tion in tion in tion in 9:31 AM me] in source source source Blood data data data by Automat ed count Eos 3.9 No % No No Oct 2 Percent informa informa informa 2014 tion in tion in tion in 9:31 AM source source source data data data Baso 0.5 No % No No Oct 2 Percent informa informa informa 2015 tion in tion in tion in 9:31 AM source source source data data data Neut# 7.4 1.8 - x10(3)/ No No Oct 2 7.7 mcL informa informa 2014 tion in tion in 9:31 AM source source data data Lymph# 2.3 0.6 - x10(3)/ No No Oct 2 4.8 mcL informa informa 2015 tion in tion in 9:31 AM source source data data [place]# 0.7 0.0 - x10(3)/ No No Oct 2 1.3 mcL informa informa 2015 tion in tion in 9:31 AM source source data data Eos# 0.4 0.0 - x10(3)/ No No Oct 2 0.5 mcL informa informa 2014 tion in tion in 9:31 AM source source data data Baso# 0.1 0.0 - x10(3)/ No No Oct 2 0.2 mcL informa informa 2014 tion in tion in 9:31 AM source source data data ELECTROPHYSIOLOGY PROCEDURE Observa Value Referen Units Interpr Notes Date tion ce etation Range This is No No No No Aug 13 a informa informa informa informa 2014 summary tion in tion in tion in tion in 11:50 source source source source AM report. data data data data The complet e report is availab le in the patient 's medical record. If you cannot access the medical record, [facility] for a [facility]aile d fax or copy.\. br\\.br \ Radiofr equency ablatio n of right atrial prematu re atrial contrac tion\.b r\ PAC with aberran t conduct ion\.br \ Blocked PAC\.br \ Infrequ ent left atrial PAC not mapped or targete d\.br\\ .br\Vas cular recover y 3 hours\. br\Foll owup in EP clinic in 1-2 months\ .br\Pat ient will call us in meantim e if symptms recur.\ .br\ BMP Observa Value Referen Units Interpr Notes Date tion ce etation Range Notify production control coordinating clerk if creatine is 1.5 or greater, and/or GFR <55, and/or potassium greater than or equal to 5.5 or less than or equal to 3.0. Do not repeat if done within past 10 days. Sodium 141 136 - mmol/L No No Sep 05 145 informa informa 2014 tion in tion in 9:53 AM source source data data Potassi 4.9 3.5 - mmol/L No Sep 05 um 5.0 informa informa 2014 [Moles/ tion in tion in 9:53 AM volume] source source in data data Serum or Plasma Chlorid 103 98 - mmol/L No No Sep 05 e 107 informa informa 2014 tion in tion in 9:53 AM source source data data Carbon 27 22 - 29 mmol/L No No Sep 05 dioxide informa informa 2014 , total tion in tion in 9:53 AM source source [Moles/ data data volume] in Serum or Plasma Anion 11 7 - 16 mmol/L No No Sep 05 Gap informa informa 2014 tion in tion in 9:53 AM source source data data CALCIUM 10.1 8.6 - mg/dL No No Sep 05 .TOTAL 10.2 informa informa 2014 tion in tion in 9:53 AM source source data data Glucose 90 74 - mg/dL No No Sep 05 Lvl 100 informa informa 2014 tion in tion in 9:53 AM source source data data BUN 10 6 - 20 mg/dL No No Sep 05 informa informa 2014 tion in tion in 9:53 AM source source data data Creatin 1.03 0.67 - mg/dL No No Sep 05 ine 1.30 informa informa 2014 tion in tion in 9:53 AM source source data data PT Observa Value Referen Units Interpr Notes Date tion ce etation Range PT/INR only if patient is on Coumadin. Notify production control coordinating clerk if INR is 1.8 or greater PT 11.4 9.3 - second( No No Sep 05 12.3 s) informa informa 2014 tion in tion in 9:36 AM source source data data INR in 1.06 0.87 - No No Level Sep 05 Platele 1.15 informa informa of 2014 t poor tion in tion in Therapy 9:36 AM plasma source source by data data Indicat Coagula ions tion Target assay INR Range\. br\\.br \Standa rd Dose Treatme nt and prophyl axis of venous 2.0 - 3.0\.br \ thrombo sis, pulmona ry embolis m\.br\\ .br\ High Dose High risk patient s with mechani zunilda 2.5 - 3.5\.br \ heart valves Auto Diff Observa Value Referen Units Interpr Notes Date tion ce etation Range Neutrop 54.6 No % No No Sep 05 hils informa informa informa 2014 [#/volu tion in tion in tion in 9:21 AM me] in source source source Blood data data data by Automat ed count Lymphoc 33.7 No % No No Sep 05 ytes informa informa informa 2014 [#/volu tion in tion in tion in 9:21 AM me] in source source source Blood data data data by Automat ed count Monocyt 6.1 No % No No Sep 05 es informa informa informa 2014 [#/volu tion in tion in tion in 9:21 AM me] in source source source Blood data data data by Automat ed count Eos 5.1 No % No No Sep 05 Percent informa informa informa 2014 tion in tion in tion in 9:21 AM source source source data data data Baso 0.5 No % No No Sep 05 Percent informa informa informa 2014 tion in tion in tion in 9:21 AM source source source data data data Neut# 4.9 1.8 - x10(3)/ No No Sep 05 7.7 mcL informa informa 2015 tion in tion in 9:21 AM source source data data Lymph# 3.0 0.6 - x10(3)/ No No Sep 05 4.8 mcL informa informa 2014 tion in tion in 9:21 AM source source data data [place]# 0.5 0.0 - x10(3)/ No No Sep 05 1.3 mcL informa informa 2014 tion in tion in 9:21 AM source source data data Eos# 0.5 0.0 - x10(3)/ No No Aug 6 0.5 mcL informa informa 2015 tion in tion in 9:21 AM source source data data Baso# 0.0 0.0 - x10(3)/ No No Sep 05 0.2 mcL informa informa 2015 tion in tion in 9:21 AM source source data data CBC Observa Value Referen Units Interpr Notes Date tion ce etation Range Do not repeat if done in the past 10 days. LEUKOCY 9.0 4.0 - x10(3)/ No No Sep 05 JALEEL 11.0 [facility] informa informa 2014 tion in tion in 9:21 AM source source data data Erythro 5.37 4.30 - x10(6)/ No Sep 05 cytes 5.81 mcL informa informa 2014 [#/volu tion in tion in 9:21 AM me] in source source Blood data data by Automat ed count Hemoglo 16.1 13.5 - gm/dL No Sep 05 bin 17.1 informa informa 2014 [Mass/v tion in tion in 9:21 AM olume] source source in data data Blood Hematoc 46.5 38.9 - % No No Sep 05 rit 51.6 informa informa 2015 [Volume tion in tion in 9:21 AM source source Fractio data data n] of Blood by Automat ed count Erythro 86.7 82.5 - fL No No Sep 05 cyte 99.8 informa informa 2015 mean tion in tion in 9:21 AM corpusc source source ular data data volume [Entiti c volume] by Automat ed count Erythro 30.0 27.0 - pg No Sep 05 cyte 34.3 informa informa 2015 mean tion in tion in 9:21 AM corpusc source source ular data data hemoglo bin [Entiti c mass] by Automat ed count Erythro 34.6 32.1 - gm/dL No No Sep 05 cyte 35.3 informa informa 2014 mean tion in tion in 9:21 AM corpusc source source ular data data hemoglo bin concent ration [Mass/v olume] by Automat ed count Erythro 13.4 11.5 - % No No Sep 05 cyte 15.0 informa informa 2014 distrib tion in tion in 9:21 AM ution source source width data data [Ratio] by Automat ed count Platele 272 144 - x10(3)/ No No Sep 05 ts 423 mcL informa informa 2014 [#/volu tion in tion in 9:21 AM me] in source source Blood data data by Automat ed count MPV 7.2 6.8 - fL No No Sep 05 10.8 informa informa 2014 tion in tion in 9:21 AM source source data data XR KNEE RIGHT AP LAT INT EXT [place] Observa Value Referen Units Interpr Notes Date tion ce etation Range TEXT XR KNEE No No No No May 09 DIAGNOS RIGHT informa informa informa informa 2012 IS AP LAT tion in tion in tion in tion in 8:36 PM BATTERY INT EXT source source source source data data data data [place] May 09, 2012 08:37:0 5\.br\P M\.br\\ .br\HIS TORY: -KNEE PAIN.\. br\Comp are: no priors. \.br\\. br\Norm al variant tripart ite patella . No evidenc e of joint effusio n. No\.br\ fractur e or signifi cant\.b r\bony abnorma lity is identif ied.\.b r\\.br\ IMPRESS ION: Negativ e exam.
--- OUTSIDE RECORDS SUMMARY | 2016-12-14 00:44 | External Medical Summary Rpt ---
[...] th [facility]\.br\ Interpr etive Stateme nts\.br \Lye Boiler Date: 10-17-19\.br\ Referri ng Physici an: Jerri [...] r\corre lated with sinus rhythm. \.br\SV /AF [place]: 0%\.br\ DAY 2\.br\1 . Rhythm was sinus with episode s of PSVT and sinus arrhyth suzy.\.b r\2. There was rare SVE.\.b r\3. There was rare VE, includi ng bigemin y.\.br\ 4. Patient marker was not used.\. br\5. Diary entries indicat ing not feeling well, dizzine ss, lighthe adednes s and\.br \tiredn ess correla marcy with sinus rhythm, VE and SVE.\.b r\SV [place]: 3.86 seconds (0.01%) ; 9 beats (0.01%) [...] medical record, [facility] for a detaile d fax or copy.\. br\\.br \ Prematu re Atrial Contrac tion Ablatio n PT Observa Value Referen Units Interpr Notes Date tion ce etation Range PT/INR only if patient is on Coumadin. 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 br\\.br \FINDIN GS:\.br \\.br\R [...] follows (normal \.br\ra nges are\.br \listed in [facility] eses):\ .br\\.b r\Eject ion fractio n: 48 [...] follows (normal \.br\ra nges\.b r\are listed in [facility] eses): Visual inspect ion of right ventric [...] medical record, please contact the [facility] for a detaile d fax or copy.\. [...] in 8:38 AM source source data data [place]# 0.5 0.0 - x10(3)/ No No Feb [...] data data data examina tion at the [facility] are Vascula r Laborat ory.\.b r\The complet e report can be found in the [facility] ([facility]) Electro hayder Medical Record of the [...] LEAD Observa Value Referen Units Interpr Notes [facility] [place] No No No No Jan [...] LEAD Observa Value Referen Units Interpr Notes [facility] [place] No No No No Jan [...] LEAD Observa Value Referen Units Interpr Notes [facility] [place] No No No No Jan [...] LEAD Observa Value Referen Units Interpr Notes [facility] [place] No No No No Jan [...] in 2:19 PM source source data data [place]# 0.7 0.0 - x10(3)/ No No Nov [...] in 9:31 AM source source data data [place]# 0.7 0.0 - x10(3)/ No No Oct [...] medical record, please contact the sending [facility] for a detaile d fax or copy.\. [...] Notes Date tion ce etation Range Notify commercial horticulture instructor if creatine is 1.5 or greater, and/or [...] only if patient is on Coumadin. Notify commercial horticulture instructor if INR is 1.8 or greater PT [...] in 9:21 AM source source data data [place]# 0.5 0.0 - x10(3)/ No No Sep [...] x10(3)/ No No Sep 05 JALEEL 11.0 [facility] informa informa 2014 tion in tion in [...]
== END 2016-12-09 16:30 | disposition home or self-care (01) ==
LOC: ER 22:36 → 2ND 23:32 → ER 23:32 → 2ND 23:32
PROVIDERS: Emergency Medicine; Internal Medicine
PROC: B2111ZZ Fluoroscopy of Multiple Coronary Arteries using Low Osmolar Contrast (ICD-10-PCS; 2016-12-09)
PROC: B2151ZZ Fluoroscopy of Left Heart using Low Osmolar Contrast (ICD-10-PCS; 2016-12-09)
PROC: 4A023N8 Measurement of Cardiac Sampling and Pressure, Bilateral, Percutaneous Approach (ICD-10-PCS; principal; 2016-12-09 08:30)
DX: R00.1 Bradycardia, unspecified (principal); R07.9 Chest pain, unspecified; I20.0 Unstable angina; Z72.0 Tobacco use; Q21.1 Atrial septal defect
CPT/HCPCS: C1725; C1769; C1894; G0378; J1644; Q9967

== ENCOUNTER 2016-12-12 08:00 | Day surgery (SDC) | payer MEDICAID ==
[~2016-12-12 08:00] MED LIST changes: +NOMEDS XX
[2016-12-12 08:31] VITALS: BP 119/70
--- NOTE | 2016-12-18 13:56 | Operative Note ---
Procedure: Date of procedure: 12/12/16 Time of procedure: 929 Procedure performed: Implantation of loop recorder Indication: AF ablation monitoring Technique: Technique: 1 percent lidocaine with epinephrine used to anesthetize the size. The LEFT anterior aspect of the chest along the LEFT sternal border. Using the preformed scalpel, an incision was made in the loop recorder was placed subcutaneously without difficulty. Following the deployment of the loop recorder interrogation of the device was performed to ensure appropriate voltage was being detected. Once this was verified. Steri-Strips were placed over the incision and the patient was prepped to discharge home. Patient tolerated procedure well with minimal discomfort. Impression: Successful deployment of loop recorder Serial number: [id number] Plan: Routine post op care at [id number]
--- NOTE | 2016-12-18 13:56 | Operative Note ---
Procedure: Date of procedure: 12/12/16 Time of procedure: 929 Procedure performed: Implantation of loop recorder Indication: AF ablation monitoring Technique: Technique: 1 percent lidocaine with epinephrine used to anesthetize the size. The LEFT anterior aspect of the chest along the LEFT sternal border. Using the preformed scalpel, an incision was made in the loop recorder was placed subcutaneously without difficulty. Following the deployment of the loop recorder interrogation of the device was performed to ensure appropriate voltage was being detected. Once this was verified. Steri-Strips were placed over the incision and the patient was prepped to discharge home. Patient tolerated procedure well with minimal discomfort. Impression: Successful deployment of loop recorder Serial number: [id number] Plan: Routine post op care at [id number]
== END 2016-12-12 10:32 | disposition home or self-care (01) ==
LOC: CATHLAB 08:00
PROVIDERS: Internal Medicine
PROC: 0JH632Z Insertion of Monitoring Device into Chest Subcutaneous Tissue and Fascia, Percutaneous Approach (ICD-10-PCS; principal; 2016-12-12 09:45)
DX: R00.1 Bradycardia, unspecified (principal); I20.0 Unstable angina; Z72.0 Tobacco use; Q21.1 Atrial septal defect; I49.8 Other specified cardiac arrhythmias
CPT/HCPCS: C1764; G0463